=== PATIENT | male | born 1960 | race Caucasian/White ===

== ENCOUNTER 2020-03-11 13:47 | Inpatient (IN) | payer MEDICARE ==
[2020-03-11] MEDS ORDERED: MORPHINE SULFATE 10 MG/ML INJ IV ONE ×2 (14:28→18:00)
--- NOTE | 2020-03-11 14:32 | ER Document Report ---
ED Medical Screen (RME) - General Chief Complaint: Shortness Of Breath Stated Complaint: TESTICULAR PAIN/SWELLING,SHORT OF BREATH Time Seen by Provider: 03/11/20 14:19 - HPI Notes: 03/11/20 14:31 59-year-old male presents to ED for evaluation of increased scrotal pain and swelling as well as shortness of breath and abdominal distention. Reports he arrived from [place] does have history of congestive heart failure. Notes that he has required more oxygen. Denies chest pain. Patient states that he feels like his scrotum is more swollen and he is retaining fluid. Patient does take furosemide on a daily basis and states he has not missed any doses. The need for paracentesis in the past. - Related Data Allergies/Adverse Reactions: No Known Allergies Allergy (Unverified 03/11/20 14:15) Home Medications: furosemide, lisinopril, carvedilol, insulin, gimpro, warfarin Past Medical History - Social History Chew tobacco use (# tins/day): No Frequency of alcohol use: None Drug Abuse: None - Past Medical History Cardiac Medical History: Reports: Hx Congestive Heart Failure, Hx Heart Attack - 2015, Hx Hypercholesterolemia, Hx Hypertension Pulmonary Medical History: Reports: Hx COPD Endocrine Medical History: Reports: Hx Diabetes Mellitus Type 2 Renal/ Medical History: Denies: Hx Kidney Stones Past Surgical History: Reports: Hx Cardiac Catheterization - 3 stents, Hx Cardiac Surgery - #V cabg, pacer/defib, Hx Vascular Surgery - rt femoral aneurysm Physical Exam - Vital signs Vitals: Temp Pulse Resp BP Pulse Ox 97.4 F 87 20 185/110 H 91 L 03/11/20 13:57 03/11/20 13:57 03/11/20 13:57 03/11/20 13:57 03/11/20 13:57 Course - Re-evaluation Re-evalutation: 03/11/20 14:32 General: No acute distress. Alert and oriented x3. Sitting comfortably in a stretcher. Skin: Intact without any jaundice, pallor, or erythema. Warm and dry. Heart: Regular rate and rhythm. S1,S2. No murmurs, rubs, or gallops. Lungs: Crackles to bibasilar region without wheezes, rhonchi. Equal chest expansion. No retractions. Abdomen: Soft, distended. + fluid wave. Positive bowel sounds in all 4 quadrants. No hepatosplenomegaly. No masses. No CVA tenderness bilaterally. Neuro: GCS 15. Moving all extremities without discomfort. Psych: Mood and affect appropriate. - Vital Signs Vital signs: Temp Pulse Resp BP Pulse Ox 97.4 F 87 20 185/110 H 91 L 03/11/20 13:57 03/11/20 13:57 03/11/20 13:57 03/11/20 13:57 03/11/20 13:57
--- NOTE | 2020-03-11 15:29 | RADIOLOGY REPORT (SQ) ---
EXAM DESCRIPTION: U/S SCROTUM W/DOPPLER IMAGES COMPLETED DATE/TIME: 03/11/2020 3:16 pm REASON FOR STUDY: testicular pain COMPARISON: None. TECHNIQUE: Static and realtime jefferson scale imaging of the scrotum and testes. Selected color Doppler and spectral images recorded to document blood flow. LIMITATIONS: None. FINDINGS: RIGHT: TESTICLE: The right testicle measures 4.0 x 3.1 x 2.7 cm, normal size. Normal echogenicity. Normal blood flow. No mass. EPIDIDYMIS: The head of the epididymis measures 1.4 x 1.7 x 0.9 cm. A 0.4 x 0.6 x 0.4 cm cyst in th e head. HYDROCELE OR VARICOCELE: No. HERNIA OR EXTRA-TESTICULAR MASS: No. OTHER: Scrotal wall thickening measures 13 mm. LEFT: TESTICLE: The left testicle measures 3.6 x 2.8 x 2.9 cm, normal size. Normal echotexture. Normal bl ood flow. No mass. EPIDIDYMIS: The head of the epididymis measures 1.4 x 1.3 x 1.0 cm. A 0.5 x 0.5 x 0.6 cm cyst. HYDROCELE OR VARICOCELE: No. HERNIA OR EXTRA-TESTICULAR MASS: No. OTHER: Scrotal wall thickening measures 20 mm. Scrotal wade versus epididymis measures 0.7 x 0.8 x 0.6 cm. IMPRESSION: 1, NO EVIDENCE OF TESTICULAR MASS OR TORSION. 2. Scrotal wall thickening bilaterally, greater on the left. 3. Small subcentimeter cysts in the head of the epididymis bilaterally. TECHNICAL DOCUMENTATION: JOB ID: [id number] [employer]- All Rights Reserved Reading location - IP/workstation name: [email or web address]
--- NOTE | 2020-03-11 15:58 | RADIOLOGY REPORT (SQ) ---
EXAM DESCRIPTION: CHEST SINGLE VIEW IMAGES COMPLETED DATE/TIME: 03/11/2020 3:37 pm REASON FOR STUDY: chest pain COMPARISON: None. EXAM PARAMETERS: NUMBER OF VIEWS: One view. TECHNIQUE: Single frontal radiographic view of the chest acquired. RADIATION DOSE: NA LIMITATIONS: None. FINDINGS: There is left side defibrillator. The heart is enlarged. Prior CABG. Small left pleural effusion and segmental airspace disease left lower lobe. IMPRESSION: Left lower lobe pneumonia. TECHNICAL DOCUMENTATION: JOB ID: [id number] [employer]- All Rights Reserved Reading location - IP/workstation name: [email or web address]
[2020-03-11 16:07] LABS: ABSOLUTE BASOPHILS # (AUTO) 0.1 10^3/uL (0.0-0.2); ABSOLUTE EOSINOPHILS # (AUTO) 0.2 10^3/uL (0.0-0.6); ABSOLUTE LYMPHOCYTES (AUTO) 0.9 10^3/uL (0.5-4.7); ABSOLUTE MONOCYTES (AUTO) 0.8 10^3/uL (0.1-1.4); ABSOLUTE NEUT (AUTO) 6.2 10^3/uL (1.7-8.2); BASOPHILS % (AUTO) 1.4 % (0-2); HEMOGLOBIN 17.9 g/dL (13.5-17.0); MEAN CORPUSCULAR HEMOGLOBIN 31.3 pg (27.0-33.4); MEAN CORPUSCULAR HGB CONC 32.3 g/dL (32.0-36.0); MEAN CORPUSCULAR VOLUME 97 fl (80-97); MONOCYTES % (AUTO) 9.2 % (3-13); PLATELET COUNT 332 10^3/uL (150-450); RED BLOOD COUNT 5.73 10^6/uL (4.35-5.55); RED CELL DISTRIBUTION WIDTH 17.4 % (11.5-14.0); SEGMENTED NEUTROPHILS % (AUTO) 76.4 % (42-78); TOTAL CELLS COUNTED % (AUTO) 100 %; WHITE BLOOD COUNT 8.2 10^3/uL (4.0-10.5)
[2020-03-11 16:10] LABS: HEMATOCRIT 55.5 % (37.9-51.0)
[2020-03-11 16:26] LABS: ALBUMIN 3.4 g/dL (3.5-5.0); ALKALINE PHOSPHATASE 103 U/L (38-126); ASPARTATE AMINO TRANSFERASE 26 U/L (17-59); BILIRUBIN,DIRECT 0.3 mg/dL (0.0-0.4); BILIRUBIN,TOTAL 1.6 mg/dL (0.2-1.3); BLOOD UREA NITROGEN 35 mg/dL (7-20); CALCIUM 9.2 mg/dL (8.4-10.2); CHLORIDE 94 mmol/L (98-107); CREATINE KINASE 132 U/L (55-170); GLUCOSE 214 mg/dL (75-110); POTASSIUM 4.1 mmol/L (3.6-5.0); TOTAL PROTEIN 6.6 g/dL (6.3-8.2)
[2020-03-11 16:34] LABS: ANION GAP 3 (5-19)
[2020-03-11 16:35] LABS: CARBON DIOXIDE 41 mmol/L (22-30)
[2020-03-11 16:38] LABS: CREATINE KINASE MB 5.52 ng/mL (<4.55)
[2020-03-11 16:51] LABS: TROPONIN I 0.072 ng/mL
[2020-03-11] MEDS ORDERED: ENOXAPARIN SODIUM INJ 100 MG/1 ML DISP.SYRIN SUBCUT ONE (18:49)
[2020-03-11] MEDS ORDERED: FUROSEMIDE INJ/PF 40 MG/4 ML SDV IV ONE (18:50)
--- NOTE | 2020-03-11 19:02 | RADIOLOGY REPORT (SQ) ---
EXAM DESCRIPTION: CTA CHEST IMAGES COMPLETED DATE/TIME: 03/11/2020 3:33 pm REASON FOR STUDY: eval for PE COMPARISON: Single-view chest same date. TECHNIQUE: CT scan of the chest performed using helical scanning technique with dynamic intravenous contrast injection. Images reviewed with lung, soft tissue and bone windows. Reconstructed coronal and sagittal MPR images reviewed. Additional 3 dimensional post-processing performed to develop Maximal Intensity Projection images (FL P). All images stored on PACS. All CT scanners at this facility use dose modulation, iterative reconstruction, and/or weight based d osing when appropriate to reduce radiation dose to as low as reasonably achievable (ALARA). [facility]: Dose Right [facility]: CareDose [facility]: Dose Right [facility]: Teradose 4D [facility]: [email or web address] CONTRAST TYPE AND DOSE: contrast/concentration: Isovue 300.00 mmol/ml; Total Contrast Delivered: 75. 0 ml; Total Saline Delivered: 48.0 ml Contrast bolus optimized for the pulmonary arteries. Not diagnostic for the aorta. RENAL FUNCTION: Creatinine 1.54 RADIATION DOSE: CT Rad equipment meets quality standard of care and radiation dose reduction techniq ues were employed. CTDIvol: 23.2 - 26.4 mGy. DLP: 862 mGy-cm. . LIMITATIONS: Motion artifact. FINDINGS: LUNGS AND PLEURA: Moderate left and small right pleural effusions. Diffuse breast from mo tion artifact. There are some ground-glass opacities and septal thickening in the upper lobes, more pronounced on the right. Consolidative and somewhat wedge-shaped opacities in the posterior left low er lobe probably representing pulmonary infarcts. No pneumothorax identified. 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 HEART: No pericardial effusion. Coronary artery calcifications. PULMONARY ARTERIES: There appear to be some filling defects involving segmental and subsegmental pulm onary artery supplying the left lower lobe. These appear to lead to the peripheral wedge-shaped opac ities described above. No large central pulmonary embolism. Main pulmonary artery is enlarged. The re is reflux of contrast into the IVC and hepatic veins. HILAR AND MEDIASTINAL STRUCTURES: Some mildly enlarged lymph nodes are likely reactive. HARDWARE: Left-sided pacemaker and pacing leads with associated artifact partially obscuring detail o f adjacent structures. UPPER ABDOMEN: As above. Mild ascites. Partially visualized aortic stent. THYROID AND OTHER SOFT TISSUES: No masses. No adenopathy. BONES: No acute or significant finding. 3D MIPS: Confirm above findings. OTHER: No other significant finding. IMPRESSION: 1. Findings suspicious for acute pulmonary emboli within segmental and subsegmental pul monary arteries supplying the left lower lobe. Some peripheral wedge-shaped opacities in this region likely represent pulmonary infarcts. There may be component of rounded atelectasis. 2. Findings suggestive of pulmonary edema with ground-glass attenuation and septal thickening is wel l as bilateral pleural effusions. 3. Main pulmonary is enlarged. Reflex of contrast into the IVC and hepatic veins. Findings could b e due to underlying chronic pulmonary hypertension, though this could be exacerbated due to the acute PE. COMMENT: This report was called to JANEEN ART DO at15:46 [place] time on 03/11/2020. Quality ID # [id number]: Final reports with documentation of one or more dose reduction techniques (e.g., Au tomated exposure control, adjustment of the mA and/or kV according to patient size, use of iterative reconstruction technique) TECHNICAL DOCUMENTATION: JOB ID: [id number] 2010 [employer]- All Rights Reserved Reading location - IP/workstation name: [email or web address]
--- NOTE | 2020-03-11 19:24 | ER Document Report ---
ED General - General Chief Complaint: Shortness Of Breath Stated Complaint: TESTICULAR PAIN/SWELLING,SHORT OF BREATH Time Seen by Provider: 03/11/20 14:19 - HPI Notes: Patient is a 59-year-old male with a history of congestive heart failure, coronary artery disease, who presents to the emergency department for evaluation of increased difficulty breathing. He states has been going on for the last 2 weeks. The patient is actually from the [facility]. He drove up here to see his son. He has been here for 2 weeks, states has been short of breath for 2 weeks. He is a very difficult historian. He denies any pain. He states he has been taking his medications. He states he has only recently started having seeping from the leg wounds that he has. He states some of them are new. He states he is supposed to weigh himself daily but he admits that he does not. He feels like he may have gained weight. He also has scrotal edema which is worsened. He denies any fevers or chills. No coughing. No vomiting. He is still urinating. - Related Data Allergies/Adverse Reactions: No Known Allergies Allergy (Unverified 03/11/20 14:15) Home Medications: Coreg 25 mg twice daily, Coumadin 5 mg daily, Neurontin 100 mg 3 times daily, gemfibrozil 600 mg twice daily, Bumex 1 mg daily, lisinopril 40 mg daily, hydralazine 25 mg 3 times daily, isosorbide mononitrate 30 mg daily, insulin 70/30, 45 units in the morning, 20 5 in the evening, ProAir as needed Past Medical History - General Information source: Patient - Social History Smoking Status: Current Every Day Smoker Chew tobacco use (# tins/day): No Frequency of alcohol use: None Drug Abuse: None Family History: Reviewed & Not Pertinent Patient has homicidal ideation: No - Past Medical History Cardiac Medical History: Reports: Hx Congestive Heart Failure, Hx Heart Attack - 2015, Hx Hypercholesterolemia, Hx Hypertension Denies: Hx DVT, Hx Pulmonary Embolism Pulmonary Medical History: Reports: Hx COPD Endocrine Medical History: Reports: Hx Diabetes Mellitus Type 2 Renal/ Medical History: Denies: Hx Kidney Stones Past Surgical History: Reports: Hx Cardiac Catheterization - 3 stents, Hx Coronary Artery Bypass Graft, Hx Pacemaker - And defibrillator, Hx Vascular Surgery - rt femoral aneurysm Review of Systems - Review of Systems Constitutional: Weight gain EENT: No symptoms reported Cardiovascular: See HPI Respiratory: See HPI Gastrointestinal: No symptoms reported Male Genitourinary: See HPI Skin: See HPI Neurological/Psychological: No symptoms reported Physical Exam - Vital signs Vitals: Temp Pulse Resp BP Pulse Ox 97.4 F 87 20 185/110 H 91 L 03/11/20 13:57 03/11/20 13:57 03/11/20 13:57 03/11/20 13:57 03/11/20 13:57 - Notes Notes: This is a 59-year-old male who appears much older than his stated age, in no acute distress. Vital signs reviewed, please refer to chart. Head is normocephalic, atraumatic. Pupils equal round, reactive to light. Dentition is poor. Oral mucosa is moist. Neck is supple without meningismus. Heart is regular rate and rhythm. Lungs reveal bibasilar rales, occasional anterior expiratory wheezes. Abdomen is firm with positive fluid wave, nontender, normoactive bowel sounds throughout. He has pitting edema to the skin of the abdomen all the way up to the thorax. Extremities without cyanosis, clubbing. 3+ pitting edema noted throughout the lower extremities. He has open/weeping wounds to the left lower extremity, both anteriorly and posteriorly. They appear chronic. Posterior calves are nontender. Peripheral pulses are equal. Skin is warm and dry. Patient is awake, alert, neurological exam is nonfocal. Course - Re-evaluation Re-evalutation: 03/11/20 20:05 Patient presents to the emergency department for evaluation of shortness of breath. He is an extremely difficult historian. He does have a history of CHF, and was obviously having an acute exacerbation of this on initial evaluation. Initially told me he was not on a diuretic, then he told me he was on Lasix, then he said perhaps he was injecting Bumex intermittently. He had extreme difficulty telling me any of his medications for some time. He told me pharmacies that he used that in fact he had not used for several years. We were finally eventually able to reach his son, who took pictures of his medication bottles, and medication list was reconciled. His laboratory investigations are consistent with severe congestive heart failure. His initial chest x-ray showed left pleural effusion of what looked like airspace disease to radiology. The patient does not have a significant cough, he has no leukocytosis, no fever. I did not suspect that this was secondary to pneumonia. Given his long journey from [place], I was concerned about the possibility of a pulmonary embolus. I did not have any concept of the fact that the patient was reportedly on Coumadin at the time of the initial evaluation. He states that he was on Coumadin because of his coronary artery disease, I will write denies any history of DVT or pulmonary embolus. CT angiogram shows findings consistent with a left lower lobe pulmonary embolus and resultant pulmonary infarction. Lovenox is ordered. Patient did not have a diuretic dose when I ordered his IV Lasix. He was administered 40 of IV Lasix, awaiting to see response. Given that he is on Bu julio, may increase diuretic dose. The patient had denied any history of renal insufficiency, but again he is an extremely poor historian at this point, ABG was tried twice by nursing, the patient is refusing any further attempts. Will contact medicine for admission. 03/11/20 20:[address] Selby, he will come down and evaluate the patient. 03/11/20 21:02 Still awaiting report on whether or not Dr. Selby will accept this patient. In short, I do believe he needs admitted for his pulmonary embolus. It is clearly acute. Whether or not he is compliant with his medications, including his Coumadin, he still needs bridging at the very least. My suspicion is that he does occasionally take his Coumadin and he had a pulmonary embolus despite this. His blood pressure is high, but I have ordered for him to get his regular medications, including his hydralazine and his Coreg. I do not believe he requires a nitroglycerin drip at this time, as he is oxygenating well on his 2 L, I am awaiting response to the diuresis. Still awaiting word on admission. 03/11/20 21:09 Patient accepted to the IM service. - Vital Signs Vital signs: Temp Pulse Resp BP Pulse Ox 97.5 F 67 17 137/74 H 96 03/13/20 15:09 03/13/20 19:00 03/13/20 15:09 03/13/20 15:09 03/13/20 15:09 - Laboratory Results Result Diagrams: 03/13/20 05:41 03/13/20 05:41 Laboratory Results Interpreted: 03/11/20 03/11/20 03/11/20 15:50 15:50 15:50 RBC 5.73 H Hgb 17.9 H Hct 55.5 H RDW 17.4 H Lymph % (Auto) 11.0 L PT Carbonic Acid ABG pCO2 ABG pO2 ABG HCO3 ABG Total CO2 Chloride 94 L Carbon Dioxide 41 H* Anion Gap 3 L BUN 35 H Creatinine 1.54 H Est GFR ( Amer) 57 L Est GFR (MDRD) Non-Af 47 L Glucose 214 H Total Bilirubin 1.6 H CK-MB (CK-2) 5.52 H NT-Pro-B Natriuret Pep 65701 H Albumin 3.4 L 03/11/20 03/11/20 15:50 20:15 RBC Hgb Hct RDW Lymph % (Auto) PT 16.5 H Carbonic Acid 1.47 H ABG pCO2 49.0 H ABG pO2 76.5 L ABG HCO3 32.8 H ABG Total CO2 34.3 H Chloride Carbon Dioxide Anion Gap BUN Creatinine Est GFR ( Amer) Est GFR (MDRD) Non-Af Glucose Total Bilirubin CK-MB (CK-2) NT-Pro-B Natriuret Pep Albumin Critical Laboratory Results Reviewed: Yes Attending or Supervising Physician who Reviewed Labs: JANEEN ART - Radiology Results Radiology Results Interpreted: 03/11/20 20:08 Chest X-Ray 03/11/20 14:30 IMPRESSION: Left lower lobe pneumonia. Scrotum Ultrasound 03/11/20 14:31 IMPRESSION: 1, NO EVIDENCE OF TESTICULAR MASS OR TORSION. 2. Scrotal wall thickening bilaterally, greater on the left. 3. Small subcentimeter cysts in the head of the epididymis bilaterally. Chest/Abdomen CTA 03/11/20 18:05 IMPRESSION: 1. Findings suspicious for acute pulmonary emboli within segmental and subsegmental pulmonary arteries supplying the left lower lobe. Some peripheral wedge-shaped opacities in this region likely represent pulmonary infarcts. There may be component of rounded atelectasis. 2. Findings suggestive of pulmonary edema with ground-glass attenuation and septal thickening is well as bilateral pleural effusions. 3. Main pulmonary is enlarged. Reflex of contrast into the IVC and hepatic veins. Findings could be due to underlying chronic pulmonary hypertension, though this could be exacerbated due to the acute PE. Critical Radiology Results Reviewed: Yes Attending or Supervising Physician who Reviewed Radiology: JANEEN ART Critical Care Note - Critical Care Note Total time excluding time spent on procedures (mins): 30 Discharge - Discharge Clinical Impression: Pulmonary embolism and infarction Congestive heart failure Qualifiers: Heart failure chronicity: acute on chronic Condition: Stable Disposition: ADMITTED INPATIENT Admitting Provider: [facility] Unit Admitted: [facility]
[2020-03-11 19:36] LABS: INTERNATIONAL RATION (INR) 1.31; PROTHROMBIN TIME 16.5 SEC (11.4-15.4)
[2020-03-11] MEDS ORDERED: HYDRALAZINE HCL 25 MG TABLET PO ONE (20:11)
[2020-03-11] MEDS ORDERED: CARVEDILOL 12.5 MG TABLET PO ONE (20:11)
[2020-03-11 21:05] LABS: ARTERIAL BLOOD H2CO3 1.47 mmol/L (1.05-1.35); ARTERIAL BLOOD HCO3 32.8 mmol/L (20-24); ARTERIAL BLOOD O2 SATURATION 95.6 % (94-98); ARTERIAL BLOOD PH 7.44 (7.35-7.45); ARTERIAL BLOOD PO2 76.5 mmHg (80-100); ARTERIAL BLOOD TOTAL CO2 34.3 mmol/L (23-27)
[2020-03-11 21:06] LABS: ARTERIAL BLOOD FIO2 3L
[2020-03-11] MEDS ORDERED: DEXTROSE 50%-WATER 25 GM/50 ML DISP.SYRIN IV PRN ×2 (21:15)
[2020-03-11] MEDS ORDERED: GLUCAGON,HUMAN RECOMB 1 MG INJ IM PRN (21:15)
[2020-03-11] MEDS ORDERED: DEXTROSE 40% GEL 15 GM TUBE PO PRN ×2 (21:15)
--- NOTE | 2020-03-11 21:21 | PDOC H&P ---
History of Present Illness Patient complains of: Shortness of breath, leg swelling History of Present Illness: HARRIET PINEDA is a 59 year old male with a history of heart failure, COPD on 2 L intranasal oxygen, CAD, type 2 diabetes and hypertension presents to the ED with 2 weeks duration of progressively worsening shortness of breath and generalized body swelling which started from the lower extremities and gradually increased to involve his scrotum and abdomen. He also endorses associated orthopnea. Patient patient is a difficult and unreliable historian and additional history was obtained from ED signout. Patient lives in [place] and moved here 2 weeks back to see his son. He states that he is compliant with all his medications. A picture of his medication list sent by his son to the ED physician shows that he is on medications for heart failure with reduced ejection fraction and also on anticoagulation with warfarin but patient unable to give a clear answer why he is on anticoagulation. He states that he was started initially on Eliquis about 8 to 10 months back and was later switched to warfarin for unclear reasons. He reports that he has no cough, chest pain, fever, chills, palpitation, dizziness, change in his vision, weakness of extremities, aphasia or difficulty of swallowing. He denies any change in his bowel or urinary habits. Past Medical History Cardiac Medical History: Reports: Congestive Heart Failure, Myocardial Infarction - 2015, Hyperlipidema, Hypertension Denies: DVT, Pulmonary Embolism Pulmonary Medical History: Reports: Chronic Obstructive Pulmonary Disease (COPD) Endocrine Medical History: Reports: Diabetes Mellitus Type 2 Past Surgical History Past Surgical History: Reports: Cardiac Catheterization - 3 stents, Coronary Artery Bypass Graft, Pacemaker - And defibrillator, Vascular Surgery - rt femoral aneurysm Social History Information Source: Patient Lives with: Family Smoking Status: Current Every Day Smoker Electronic Cigarette use?: No Hx Recreational Drug Use: No Drugs: None - Advance Directive Resuscitation Status: Full Code Family History Parental Family History Reviewed: Yes Children Family History Reviewed: Yes Sibling(s) Family History Reviewed.: Yes Medication/Allergy Allergies/Adverse Reactions: No Known Allergies Allergy (Unverified 03/11/20 14:15) Review of Systems Constitutional: ABSENT: chills, fever(s), headache(s), weight gain, weight loss Eyes: ABSENT: visual disturbances Ears: ABSENT: hearing changes Nose, Mouth, and Throat: ABSENT: headache(s), mouth pain, sore throat Cardiovascular: PRESENT: as per HPI Respiratory: PRESENT: as per HPI Gastrointestinal: ABSENT: abdominal pain, constipation, diarrhea, hematemesis, hematochezia, nausea, vomiting Genitourinary: ABSENT: dysuria, hematuria Musculoskeletal: ABSENT: joint swelling Neurological: ABSENT: abnormal gait, abnormal speech, confusion, dizziness, focal weakness, syncope Psychiatric: ABSENT: anxiety, depression, homidical ideation, suicidal ideation Endocrine: ABSENT: cold intolerance, heat intolerance, polydipsia, polyuria Hematologic/Lymphatic: ABSENT: easy bleeding, easy bruising Physical Exam Vital Signs: Temp Pulse Resp BP Pulse Ox 98.2 F 87 32 H 185/119 H 93 03/11/20 17:17 03/11/20 13:57 03/11/20 17:31 03/11/20 17:31 03/11/20 17:32 Intake & Output 03/10/20 03/11/20 03/12/20 06:59 06:59 06:59 Weight 100 kg Additional comments: GENERAL APPEARANCE: Alert and oriented x3, in no acute distress, on 3 L intranasal oxygen HEENT: Normocephalic and atraumatic. No scleral icterus. Moist oral mucosa NECK: Supple. No lymphadenopathy or tenderness. Has elevated JVD CHEST: Symmetric. Nontender to palpation. There is a palpable ICD on the left precordium LUNGS: There is dullness and decreased air entry on the left lower lung field. Has crackles bilaterally. No wheezing appreciated HEART: Regular rate and rhythm with normal S1 and S2. No murmurs, gallops, or rubs. ABDOMEN: Distended, active bowel sounds, no direct or rebound tenderness. No organomegaly detected. No CVA tenderness EXTREMITIES: +2 pitting edema up to his knees, has signs of stasis dermatitis with serosanguineous fluid oozing from ulcerated excoriations on the left mid hinson area MUSCULOSKELETAL: No deformity, atrophy or swelling noted PSYCHIATRIC: Recent and remote memory is intact. Appropriate mood and affect. SKIN: Warm, dry, and well perfused. No lesions or rashes are noted. NEUROLOGIC: No focal sensory or motor deficits are noted. Results Laboratory Results: 03/11/20 15:50 03/11/20 15:50 03/11/20 03/11/20 03/11/20 15:50 15:50 20:15 WBC 8.2 RBC 5.73 H Hgb 17.9 H Hct 55.5 H MCV 97 MCH 31.3 MCHC 32.3 RDW 17.4 H Plt Count 332 Seg Neutrophils % 76.4 Carbonic Acid 1.47 H HCO3/H2CO3 Ratio 22:1 ABG pH 7.44 ABG pCO2 49.0 H ABG pO2 76.5 L ABG HCO3 32.8 H ABG O2 Saturation 95.6 ABG Base Excess 7.0 FiO2 3L Sodium 138.0 Potassium 4.1 Chloride 94 L Carbon Dioxide 41 H* Anion Gap 3 L BUN 35 H Creatinine 1.54 H Est GFR ( Amer) 57 L Glucose 214 H Calcium 9.2 Total Bilirubin 1.6 H AST 26 Alkaline Phosphatase 103 Total Protein 6.6 Albumin 3.4 L Lipase 68.7 03/11/20 03/11/20 03/11/20 15:50 15:50 17:20 Creatine Kinase 132 CK-MB (CK-2) 5.52 H Troponin I 0.072 0.074 NT-Pro-B Natriuret Pep 93923 H Impressions: Chest X-Ray 03/11/20 14:30 IMPRESSION: Left lower lobe pneumonia. Scrotum Ultrasound 03/11/20 14:31 IMPRESSION: 1, NO EVIDENCE OF TESTICULAR MASS OR TORSION. 2. Scrotal wall thickening bilaterally, greater on the left. 3. Small subcentimeter cysts in the head of the epididymis bilaterally. Chest/Abdomen CTA 03/11/20 18:05 IMPRESSION: 1. Findings suspicious for acute pulmonary emboli within segmental and subsegmental pulmonary arteries supplying the left lower lobe. Some peripheral wedge-shaped opacities in this region likely represent pulmonary infarcts. There may be component of rounded atelectasis. 2. Findings suggestive of pulmonary edema with ground-glass attenuation and septal thickening is well as bilateral pleural effusions. 3. Main pulmonary is enlarged. Reflex of contrast into the IVC and hepatic veins. Findings could be due to underlying chronic pulmonary hypertension, though this could be exacerbated due to the acute PE. Assessment and Plan - Diagnosis (1) Pulmonary embolism and infarction Is this a current diagnosis for this admission?: Yes Plan: Presents with worsening shortness of breath Patient was on warfarin but difficult to confirm compliance INR was subtherapeutic on this presentation CTA chest: Showed acute PE in segmental and subsegmental arteries supplying the left lower lobe with possible infarction Currently is hemodynamically stable Started on Lovenox Closely monitor vital signs and respiratory parameters (2) Congestive heart failure Qualifiers: Heart failure chronicity: acute on chronic Is this a current diagnosis for this admission?: Yes Plan: Presents with shortness of breath, orthopnea, bilateral leg swelling Patient's home medication includes hydralazine, isosorbide mononitrate, carvedilol and has defibrillator suggesting possible systolic heart failure CT of the chest showed signs of pulmonary edema and Jamie hypertension with the left lower lobe PE BNP was elevated at 37,900. She also has bicarb of 41 BMP ABG done at the ED showed pH/PCO2/PO2 of 7.44/49/96 Scrotal ultrasound showed no evidence of torsion Strict I&O's, daily weight, fluid restriction Initial dose of 80 mg IV Lasix was given at the ED Continue Lasix 40 mg IV twice daily Continue telemetry monitoring (3) Acute kidney injury Is this a current diagnosis for this admission?: Yes Plan: Likely prerenal cardiorenal Continue diuresis with IV Lasix Continue monitoring renal function tests Renally dose medications and avoid nephrotoxic's (4) Elevated troponin Is this a current diagnosis for this admission?: Yes Plan: Patient denies any chest pain Troponin was elevated at 0.074 Likely type II non-STEMI due to demand mismatch EKG showed no significant ST-T wave changes Continue aspirin and statin Trend cardiac enzymes every 6 hourly x2 On telemetry monitoring (5) Poorly-controlled hypertension Is this a current diagnosis for this admission?: Yes Plan: Possibly due to noncompliance with medication Restarted him back on his home medications Closely monitor vital signs (6) COPD (chronic obstructive pulmonary disease) Is this a current diagnosis for this admission?: Yes Plan: Currently not in acute exacerbation Continue DuoNeb as needed (7) Tobacco dependence Is this a current diagnosis for this admission?: Yes Plan: Counseled him about tobacco cessation and encouraged him to cut down on quit Offered nicotine patch while inpatient but patient declined (8) Obesity (BMI 30-39.9) Is this a current diagnosis for this admission?: Yes (9) Metabolic alkalosis Is this a current diagnosis for this admission?: Yes Plan: Serum bicarb level was 41 on presentation ABG showed a pH of 7.44 with PCO2 of 49 Likely chronic compensation for respiratory acidosis Less likely to be contraction alkalosis due to patient being volume overloaded Monitor BMP - Time Time Spent with patient: 35 or more minutes Total Critical Time (Minutes): 50 Smoking Cessation Education: 3 to 10 minutes Medications reviewed and adjusted accordingly: Yes Anticipated Discharge Disposition: Home, Self Care Anticipated Discharge Timeframe: within 72 hours - Inpatient Certification Based on my medical assessment, after consideration of the patient's comorbidi ties, presenting symptoms, or acuity I expect that the services needed warrant INPATIENT care.: Yes I certify that my determination is in accordance with my understanding of Vicky pete's requirements for reasonable and necessary INPATIENT services [42 CFR 412.3e].: Yes Post Hospital Care: D/C or Transfer Summary
--- NOTE | 2020-03-11 21:31 | EKG REPORT ---
SEVERITY:- ABNORMAL ECG - SINUS RHYTHM PROBABLE LEFT ATRIAL ABNORMALITY NONSPECIFIC INTRAVENTRICULAR CONDUCTION DELAY : Confirmed by: Kia Gonzalez MD 11-Mar-2020 21:29:50
[2020-03-11] MEDS: ENOXAPARIN SODIUM INJ 100 MG/1 ML DISP.SYRIN SUBCUT SCH (21:32)
[2020-03-11] MEDS: FUROSEMIDE INJ/PF 40 MG/4 ML SDV IV SCH (21:32)
[2020-03-11] MEDS: INSULIN REG, HUMAN 100 UNIT/ML 3 ML VIAL (PYX) SUBCUT SCH (22:31)
[2020-03-11] MEDS: HYDRALAZINE HCL 25 MG TABLET PO SCH (22:31)
[2020-03-11] MEDS: FAMOTIDINE 20 MG TABLET PO SCH (22:31)
[2020-03-12] MEDS: HYDRALAZINE HCL 25 MG TABLET PO SCH ×3 (05:19→22:22)
[2020-03-12 06:19] LABS: MEAN CORPUSCULAR HEMOGLOBIN 30.7 pg (27.0-33.4); MEAN CORPUSCULAR VOLUME 96 fl (80-97); PLATELET COUNT 243 10^3/uL (150-450); RED CELL DISTRIBUTION WIDTH 17.5 % (11.5-14.0); WHITE BLOOD COUNT 6.7 10^3/uL (4.0-10.5)
[2020-03-12 06:23] LABS: HEMOGLOBIN 15.7 g/dL (13.5-17.0)
[2020-03-12 06:31] LABS: BLOOD UREA NITROGEN 34 mg/dL (7-20); CALCIUM 8.9 mg/dL (8.4-10.2); CARBON DIOXIDE 39 mmol/L (22-30); CHLORIDE 95 mmol/L (98-107); GLUCOSE 158 mg/dL (75-110); POTASSIUM 4.1 mmol/L (3.6-5.0)
[2020-03-12 06:46] LABS: ANION GAP 3 (5-19)
[2020-03-12 07:30] LABS: APPEARANCE,URINE CLEAR; BILIRUBIN,URINE NEGATIVE (NEGATIVE); COLOR,URINE YELLOW; GLUCOSE, URINE NEGATIVE (NEGATIVE); KETONES,URINE NEGATIVE (NEGATIVE); LEUKOCYTE ESTERASE,URINE NEGATIVE (NEGATIVE); NITRITE,URINE NEGATIVE (NEGATIVE); PROTEIN,URINE >=500 mg/dL (NEGATIVE); URINE SPECIFIC GRAVITY 1.027; UROBILINOGEN,URINE NEGATIVE mg/dL (<2.0)
--- NOTE | 2020-03-12 09:00 | EKG REPORT ---
SEVERITY:- ABNORMAL ECG - SINUS RHYTHM PROBABLE LEFT ATRIAL ABNORMALITY NONSPECIFIC T ABNORMALITIES, DIFFUSE LEADS BORDERLINE PROLONGED QT INTERVAL : Confirmed by: Kia Gonzalez MD 12-Mar-2020 09:00:21
[2020-03-12] MEDS: INSULIN REG, HUMAN 100 UNIT/ML 3 ML VIAL (PYX) SUBCUT SCH ×4 (09:15→22:17)
[2020-03-12] MEDS: HUM INSULIN NPH/REG INSULIN HM 100 UNIT/1 ML 3 ML SUBCUT SCH ×2 (09:21→17:42)
[2020-03-12] MEDS: FAMOTIDINE 20 MG TABLET PO SCH ×2 (09:22→22:23)
[2020-03-12] MEDS: ISOSORBIDE MONONITRATE 30 MG TAB.ER.24H PO SCH (09:24)
[2020-03-12] MEDS: CARVEDILOL 12.5 MG TABLET PO SCH ×2 (09:24→22:23)
[2020-03-12] MEDS: ASPIRIN 81 MG TABLET, CHEWABLE PO SCH (09:24)
[2020-03-12] MEDS: ENOXAPARIN SODIUM INJ 100 MG/1 ML DISP.SYRIN SUBCUT SCH ×2 (09:25→22:22)
[2020-03-12] MEDS: FUROSEMIDE INJ/PF 40 MG/4 ML SDV IV SCH ×2 (09:25→22:22)
[2020-03-12] MEDS ORDERED: ISOSORBIDE MONONITRATE 60 MG TAB.ER.24H PO SCH (10:00)
[2020-03-12] MEDS: IPRATROPIUM/ALBUTEROL 0.5-2.5 MG/3 ML AMPUL NEB PRN ×2 (12:11→17:27)
--- NOTE | 2020-03-12 14:11 | XCELERA REPORT ---
[address] [address] Transthoracic Echocardiogram Report Name: HARRIET PINEDA Age: 59 yrs Gender: Male : 1960 Patient Status: [facility] Date: 03/12/2020 10:04 AM Height: 66 in Weight: 216 lb BSA: 2.1 m2 Procedure: A two-dimensional transthoracic echocardiogram with color flow and Doppler was performed. Study Quality: Fair. Reason For Study: heart failure, acite pe History: heart failure, acite pe. Ordering Physician: WILMAR STAPLETON Performed By: Hill Whitney Interpretation Summary The left ventricle is moderately to severly dilated. There is normal left ventricular wall thickness. LV EF is Less than 10% Left ventricular systolic function is severely reduced. Doppler measurements suggest impaired left ventricular relaxation, which is associated with grade I/IV or mild diastolic dysfunction There is severe global hypokinesis of the left ventricle. There is no thrombus. probably no ASD,VSD or PFO. The right ventricle is mildly dilated. The right ventricle is not well visualized secondary to technical limitations The right atrium is normal. There is no evidence of mitral valve prolapse. There is no vegetation seen on the mitral valve. There is no mitral valve stenosis. There is a mild to moderate amount of mitral regurgitation There is no aortic valvular vegetation. There is no aortic valve stenosis No aortic regurgitation is present. There is no tricuspid stenosis. There is a moderate amount of tricuspid regurgitation There is servere pulmonary hypertension by echo RVSP is 74 to 79 mm of Hg , mean of 15 to 30/ There is no pulmonic valvular stenosis. There is a mild amount of pulmonic regurgitation The aortic root is normal size. The inferior vena cava appeared dilated and decreased < 50% with respiration (RAP 15-20 mmHg) There is no pericardial effusion. MMode/2D Measurements & Calculations RVDd: 3.2 cm LVIDd: 6.3 cm FS: 3.4 % Ao root diam: 3.7 cm IVSd: 1.5 cm LVIDs: 6.1 cm EDV(Teich): 203.7 ml Ao root area: 10.8 cm2 LVPWd: 1.1 cm ESV(Teich): 188.1 ml LA dimension: 4.5 cm EF(Teich): 7.6 % Doppler Measurements & Calculations MV E max juana: MV P1/2t max juana: Ao V2 max: LV V1 max P.0 cm/sec 86.0 cm/sec 99.9 cm/sec 2.6 mmHg MV A max juana: MV P1/2t: 62.1 msec Ao max PG: LV V1 max: 60.7 cm/sec MVA(P1/2t): 3.5 cm2 4.0 mmHg 80.6 cm/sec MV E/A: 1.4 MV dec slope: 405.5 cm/sec2 MV dec time: 0.16 sec PA V2 max: PI end-d juana: TR max juana: MV P1/2t-pr_phl: 44.9 cm/sec 166.5 cm/sec 385.5 cm/sec 62.1 msec PA max PG: TR max P.81 mmHg 59.4 mmHg Left Ventricle The left ventricle is moderately to severly dilated. There is normal left ventricular wall thickness. LV EF is Less than 10%. Left ventricular systolic function is severely reduced. Doppler measurements suggest impaired left ventricular relaxation, which is associated with grade I/IV or mild diastolic dysfunction. There is severe global hypokinesis of the left ventricle. There is no thrombus. probably no ASD,VSD or PFO. Right Ventricle The right ventricle is mildly dilated. The right ventricle is not well visualized secondary to technical limitations. Atria The right atrium is normal. The left atrium is moderately dilated. Mitral Valve There is no evidence of mitral valve prolapse. There is no vegetation seen on the mitral valve. There is no mitral valve stenosis. There is a mild to moderate amount of mitral regurgitation. Aortic Valve There is no aortic valvular vegetation. There is no aortic valve stenosis. No aortic regurgitation is present. Tricuspid Valve There is no tricuspid stenosis. There is a moderate amount of tricuspid regurgitation. There is servere pulmonary hypertension by echo. RVSP is 74 to 79 mm of Hg , mean of 15 to 30/. Pulmonic Valve There is no pulmonic valvular stenosis. There is a mild amount of pulmonic regurgitation. Great Vessels The aortic root is normal size. The inferior vena cava appeared dilated and decreased < 50% with respiration (RAP 15-20 mmHg). Effusions There is no pericardial effusion. : WILMAR STAPLETON Lakshmi
--- NOTE | 2020-03-12 19:31 | PDOC PROGRESS REPORT ---
Subjective Date:: 03/12/20 Subjective:: The patient is a 59-year-old male with a past medical history of systolic CHF, COPD, chronic respiratory failure on home oxygen at 2 L/min, CAD, DM2, and hypertension who was admitted 03/11/2024 acute on chronic systolic CHF exacerbation secondary to acute pulmonary embolism with infarction. Patient was seen on afternoon rounds. He was found sitting up to the edge of the bed, comfortably, on supplemental oxygen at 3 L/min while eating his lunch. He uses 2 L/min at baseline. He reports decreased dyspnea today while at rest, although, does continue to feel quite short of breath with minimal exertion. He notes that his peripheral edema is also slightly improved this afternoon. 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 He does have an AICD. He does tell me that he was recently transitioned to Coumadin due to not being able to afford the co- pays for Eliquis or Xarelto. He denies fever, chills, chest pain, palpitations, defibrillation, abdominal pain, nausea, vomiting, diarrhea. He does note slight orthopnea. He has no questions or concerns at this time. No concerns per nursing. Reason For Visit: CONGESTIVE HEART FAILURE,PULMONARY AMBOLISM Physical Exam Vital Signs: Temp Pulse Resp BP Pulse Ox 97.3 F 62 16 112/68 98 03/12/20 15:49 03/12/20 17:27 03/12/20 17:27 03/12/20 15:49 03/12/20 17:27 Intake & Output 03/11/20 03/12/20 03/13/20 06:59 06:59 06:59 Intake Total 120 940 Output Total 550 1560 Balance -430 -620 Weight 98.2 kg General appearance: PRESENT: no acute distress, cooperative, disheveled, well- developed, well-nourished Head exam: PRESENT: atraumatic, normocephalic Eye exam: PRESENT: conjunctiva pink, EOMI, PERRLA. ABSENT: scleral icterus Mouth exam: PRESENT: moist, tongue midline Respiratory exam: PRESENT: crackles - Lateral, symmetrical, unlabored, other - Supplemental oxygen via nasal cannula. ABSENT: rales, rhonchi, wheezes Cardiovascular exam: PRESENT: RRR, +S1, +S2. ABSENT: diastolic murmur, rubs, systolic murmur Pulses: PRESENT: normal dorsalis pedis pul Vascular exam: PRESENT: normal capillary refill GI/Abdominal exam: PRESENT: distended, normal bowel sounds, soft. ABSENT: guarding, mass, organolmegaly, rebound, tenderness Rectal exam: PRESENT: deferred Extremities exam: PRESENT: full ROM, +2 edema - BLE, other - Stasis dermatitis with serosanguineous fluid bilateral lower legs; L>R. ABSENT: calf tenderness, clubbing, pedal edema Neurological exam: PRESENT: alert, awake, oriented to person, oriented to place, oriented to time, oriented to situation, CN II-XII grossly intact. ABSENT: motor sensory deficit Psychiatric exam: PRESENT: appropriate affect, normal mood. ABSENT: homicidal ideation, suicidal ideation Skin exam: PRESENT: dry, warm. ABSENT: cyanosis, rash Results Laboratory Results: 03/12/20 05:36 03/12/20 05:36 03/11/20 03/12/20 03/12/20 20:15 05:36 05:36 WBC 6.7 RBC 5.10 Hgb 15.7 D Hct 49.0 MCV 96 MCH 30.7 MCHC 32.0 RDW 17.5 H Plt Count 243 Carbonic Acid 1.47 H HCO3/H2CO3 Ratio 22:1 ABG pH 7.44 ABG pCO2 49.0 H ABG pO2 76.5 L ABG HCO3 32.8 H ABG O2 Saturation 95.6 ABG Base Excess 7.0 FiO2 3L Sodium 137.2 Potassium 4.1 Chloride 95 L Carbon Dioxide 39 H Anion Gap 3 L BUN 34 H Creatinine 1.45 H Est GFR ( Amer) > 60 Glucose 158 H Calcium 8.9 Urine Color Urine Appearance Urine pH Ur Specific [place] Urine Protein Urine Glucose (UA) Urine Ketones Urine Blood Urine Nitrite Ur Leukocyte Esterase Urine WBC (Auto) Urine RBC (Auto) 03/12/20 06:20 WBC RBC Hgb Hct MCV MCH MCHC RDW Plt Count Carbonic Acid HCO3/H2CO3 Ratio ABG pH ABG pCO2 ABG pO2 ABG HCO3 ABG O2 Saturation ABG Base Excess FiO2 Sodium Potassium Chloride Carbon Dioxide Anion Gap BUN Creatinine Est GFR ( Amer) Glucose Calcium Urine Color YELLOW Urine Appearance CLEAR Urine pH 6.0 Ur Specific [place] 1.027 Urine Protein >=500 H Urine Glucose (UA) NEGATIVE Urine Ketones NEGATIVE Urine Blood NEGATIVE Urine Nitrite NEGATIVE Ur Leukocyte Esterase NEGATIVE Urine WBC (Auto) 2 Urine RBC (Auto) 3 03/11/20 03/11/20 03/11/20 15:50 15:50 17:20 Creatine Kinase 132 CK-MB (CK-2) 5.52 H Troponin I 0.072 0.074 NT-Pro-B Natriuret Pep 23097 H 03/12/20 05:36 Creatine Kinase CK-MB (CK-2) Troponin I 0.086 NT-Pro-B Natriuret Pep Impressions: Chest X-Ray 03/11/20 14:30 IMPRESSION: Left lower lobe pneumonia. Scrotum Ultrasound 03/11/20 14:31 IMPRESSION: 1, NO EVIDENCE OF TESTICULAR MASS OR TORSION. 2. Scrotal wall thickening bilaterally, greater on the left. 3. Small subcentimeter cysts in the head of the epididymis bilaterally. Chest/Abdomen CTA 03/11/20 18:05 IMPRESSION: 1. Findings suspicious for acute pulmonary emboli within segmental and subsegmental pulmonary arteries supplying the left lower lobe. Some p eripheral wedge-shaped opacities in this region likely represent pulmonary infarcts. There may be component of rounded atelectasis. 2. Findings suggestive of pulmonary edema with ground-glass attenuation and septal thickening is well as bilateral pleural effusions. 3. Main pulmonary is enlarged. Reflex of contrast into the IVC and hepatic veins. Findings could be due to underlying chronic pulmonary hypertension, though this could be exacerbated due to the acute PE. Assessment and Plan - Diagnosis (1) Pulmonary embolism and infarction Is this a current diagnosis for this admission?: Yes Plan: Presents with worsening shortness of breath Patient was on warfarin but difficult to confirm compliance. Changed from Eliquis due to financial burden of copay. INR was subtherapeutic on this presentation CTA chest: Showed acute PE in segmental and subsegmental arteries supplying the left lower lobe with possible infarction Currently is hemodynamically stable Started on Lovenox Will resume Coumadin; requires Lovenox bridge. Closely monitor vital signs and respiratory parameters (2) Congestive heart failure Qualifiers: Heart failure chronicity: acute on chronic Is this a current diagnosis for this admission?: Yes Plan: Acute on chronic systolic CHF exacerbation. CT of the chest showed signs of pulmonary edema and pulmonary hypertension with the left lower lobe PE BNP was elevated at 37,900. She also has bicarb of 41 BMP ABG done at the ED showed pH/PCO2/PO2 of 7.44/49/96 Scrotal ultrasound showed no evidence of torsion Echocardiogram shows LVEF less than 10%. Continued home medication regiment of carvedilol, Hydralazine, and isosorbide. Continues on aspirin and statin therapy. Diuresing with IV furosemide Cardiac diet. Strict I&O's, daily weight, fluid restriction Cardiology has been consulted; discussed with Dr. Álvarez. He plans to start patient on Entresto. Continue telemetry monitoring (3) Acute kidney injury Is this a current diagnosis for this admission?: Yes Plan: Likely prerenal cardiorenal Cr trending down; 1.54-> 1.45 Unknown baseline Continue diuresis with IV Lasix Continue monitoring renal function tests Renally dose medications and avoid nephrotoxic's (4) COPD (chronic obstructive pulmonary disease) Is this a current diagnosis for this admission?: Yes Plan: Currently not in acute exacerbation Continue DuoNeb as needed Continue supplemental oxygen as needed. No indications for antibiotics or steroid therapy at this time. (5) Elevated troponin Is this a current diagnosis for this admission?: Yes Plan: Patient denies any chest pain Troponin 0.072-> 0.74-> 0.86 Likely type II non-STEMI due to demand mismatch EKG showed no significant ST-T wave changes Continue aspirin and statin On telemetry monitoring Cardiology is now consulted. (6) Metabolic alkalosis Is this a current diagnosis for this admission?: Yes Plan: Serum bicarb level was 41 on presentation ABG showed a pH of 7.44 with PCO2 of 49 Likely chronic compensation for respiratory acidosis Less likely to be contraction alkalosis due to patient being volume overloaded Monitor BMP (7) Poorly-controlled hypertension Is this a current diagnosis for this admission?: Yes Plan: Improved blood pressures today. Patient's home medication regiment of carvedilol, hydralazine, isosorbide was renewed. Currently being diuresed with IV furosemide. Cardiology is consulted; per Dr. Gonzalez, plans to start Entresto. Closely monitor vital signs (8) Obesity (BMI 30-39.9) Is this a current diagnosis for this admission?: Yes Plan: Lifestyle modification, dietary compliance, and weight loss encouraged. (9) Tobacco dependence Is this a current diagnosis for this admission?: Yes Plan: Counseled him about tobacco cessation and encouraged him to cut down on quit Offered nicotine patch while inpatient but patient declined - Time Time Spent with patient: 35 or more minutes Medications reviewed and adjusted accordingly: Yes Anticipated Discharge Disposition: Home, Self Care Anticipated Discharge Timeframe: TBD
--- NOTE | 2020-03-12 19:31 | PDOC CONSULTATION ---
Consultation-Blank Consultation: CARDIOLOGY CONSULTATION by Dr. Kia Collado on 03/12/2020. Patient seen at 12 noon. 60 minutes spent with patient with more than 50% time spent in direct patient care. CONSULT REQUESTING PHYSICIAN: , [facility] REASON FOR CONSULTATION: PATIENT WITH HEART FAILURE. HISTORY OF PRESENT ILLNESS: PATIENT is a very poor historian. The patient has a history of coronary artery disease, history of myocardial infarction 2014, with cardiomyopathy with reduced LV ejection fraction which is 35% as per patient history of AICD placement, COPD continues to smoke, and hypertension and diabetes mellitus states that he drove from [place] about 2 weeks ago since then he has been having progressively increasing PND orthopnea and leg edema. He is also having increasing leg edema and swelling of his scrotum. He denies any palpitations anginal symptoms or firing of his AICD. The patient is on Coumadin but he does not know exactly for what. He states he used to be on Eliquis, but was changed to Coumadin since he could not afford the Eliquis. His renal function only slightly impaired, but the patient is not on a DESTINY inhibitor or ARB. On questioning the patient denies any symptoms suggestive of prior allergy to an DESTINY or ARB clinically. He also had a CT scan of the chest with contrast which showed that there was suspicion for pulmonary emboli. Hence the patient has been placed on Lovenox and also is on Coumadin. He states since admission he has feels felt better. He also denies any fever chills or rigors. He has been having dry cough especially when he lies down he coughs more and this is most likely PND equal. There is no firing of his AICD. Past Medical History Cardiac Medical History: Reports: Congestive Heart Failure, Myocardial Infarction - 2015, Hyperlipidema, Hypertension Denies: DVT, Pulmonary Embolism Pulmonary Medical History: Reports: Chronic Obstructive Pulmonary Disease (COPD) Endocrine Medical History: Reports: Diabetes Mellitus Type 2 Past Surgical History Past Surgical History: Reports: Cardiac Catheterization - 3 stents, Coronary Artery Bypass Graft, Pacemaker - And defibrillator, Vascular Surgery - rt femoral aneurysm Social History Information Source: Patient Lives with: Family Smoking Status: Current Every Day Smoker Electronic Cigarette use?: No Hx Recreational Drug Use: No Drugs: None - Advance Directive Resuscitation Status: Full Code Family History Parental Family History Reviewed: Yes Children Family History Reviewed: Yes Sibling(s) Family History Reviewed.: Yes Medication/Allergy Allergies/Adverse Reactions: No Known Allergies Allergy (Unverified 03/11/20 14:15) RESUSCITATION STATUS: The patient is a full code. His daughter is a surrogate healthcare decision maker. Current Medications Generic Name Dose Route Start Last Admin Trade Name Freq PRN Reason Stop Dose Admin Acetaminophen 650 mg 03/11/20 21:00 Acetaminophen 325 Mg Tablet PO 04/10/20 20:59 Q4HP PRN FEVER >101 Albuterol/Ipratropium 3 ml 03/11/20 21:00 03/12/20 17:27 Ipratropium/Albuterol 0.5-2.5 Mg/3 Ml Ampul NEB 04/10/20 20:59 3 ml [id number] PRN Administration SHORTNESS OF BREATH Aspirin 81 mg 03/12/20 10:00 03/12/20 09:24 Aspirin 81 Mg Tablet, Chewable PO 04/11/20 09:59 81 mg DAILY BRIDGET Administration Carvedilol 25 mg 03/12/20 10:00 03/12/20 09:24 Carvedilol 12.5 Mg Tablet PO 04/11/20 09:59 25 mg Q12 BRIDGET Administration Dextrose 12.5 gm 03/11/20 21:15 Dextrose 50%-Water 25 Gm/50 Ml Disp.Syrin IV 04/10/20 21:14 PRN PRN FOR BG 50-69 IN ALERT PATIENT Protocol Dextrose 25 gm 03/11/20 21:15 Dextrose 50%-Water 25 Gm/50 Ml Disp.Syrin IV 04/10/20 21:14 PRN PRN PER PROTOCOL Protocol Enoxaparin Sodium 100 mg 03/11/20 22:00 03/12/20 09:25 Enoxaparin Sodium Inj 100 Mg/1 Ml Disp.Syrin SUBCUT 04/10/20 21:59 100 mg Q12 BRIDGET Administration Famotidine 20 mg 03/11/20 22:00 03/12/20 09:22 Famotidine 20 Mg Tablet PO 04/10/20 21:59 20 mg Q12 BRIDGET Administration Furosemide 40 mg 03/11/20 22:00 03/12/20 09:25 Furosemide Inj/Pf 40 Mg/4 Ml Sdv IV 04/10/20 21:59 40 mg Q12 BRIDGET Administration Glucagon 1 mg 03/11/20 21:15 Glucagon,Human Recomb 1 Mg Inj IM 04/10/20 21:14 PRN PRN Evaluate for BG < 70 Protocol Glucose 15 gm 03/11/20 21:15 Dextrose 40% Gel 15 Gm Tube PO 04/10/20 21:14 PRN PRN FOR BG 50-69 IN ALERT PATIENT Protocol Glucose 30 gm 03/11/20 21:15 Dextrose 40% Gel 15 Gm Tube PO 04/10/20 21:14 PRN PRN FOR BG < 50 IN ALERT PATIENT Protocol Hydralazine HCl 25 mg 03/11/20 22:00 03/12/20 16:29 Hydralazine Hcl 25 Mg Tablet PO 04/10/20 21:59 25 mg Q8 BRDIGET Administration Insulin Human Isoph/Insulin Regular 25 unit 03/12/20 08:00 03/12/20 17:42 Hum Insulin Nph/Reg Insulin Hm 100 Unit/1 Ml 3 Ml SUBCUT 04/11/20 07:59 25 unit BIDACBS BRIDGET Administration Insulin Human Regular 0 - 12 unit 03/11/20 22:00 03/12/20 17:33 Insulin Reg, Human 100 Unit/Ml 3 Ml Vial (Pyx) SUBCUT 04/10/20 21:59 Not Given ACHS [facility] Protocol Isosorbide Mononitrate 30 mg 03/12/20 10:00 03/12/20 09:24 Isosorbide Mononitrate 30 Mg Tab.Er.24h PO 04/11/20 09:59 30 mg DAILY [facility] Administration Pharmacy Consult 1 dose 03/12/20 19:26 Coumadin Pharmacy To Dose PO 04/11/20 19:25 .PHARMACY TO DOSE PRN THIS MED IS NOT "PRN" Protocol Discontinued Medications Generic Name Dose Route Start Last Admin Trade Name Freq PRN Reason Stop Dose Admin Carvedilol 25 mg 03/11/20 20:11 03/11/20 20:48 Carvedilol 12.5 Mg Tablet PO 03/11/20 20:12 25 mg NOW ONE Administration Enoxaparin Sodium 100 mg 03/11/20 18:49 03/11/20 19:46 Enoxaparin Sodium Inj 100 Mg/1 Ml Disp.Syrin SUBCUT 03/11/20 18:50 100 mg ONCE ONE Administration Furosemide 40 mg 03/11/20 18:50 03/11/20 19:41 Furosemide Inj/Pf 40 Mg/4 Ml Sdv IV 03/11/20 18:51 40 mg NOW ONE Administration Hydralazine HCl 25 mg 03/11/20 20:11 03/11/20 20:48 Hydralazine Hcl 25 Mg Tablet PO 03/11/20 20:12 25 mg NOW ONE Administration Morphine Sulfate 2 mg 03/11/20 14:28 03/11/20 17:21 Morphine Sulfate 10 Mg/Ml Inj IV 03/11/20 14:29 Not Given NOW ONE Morphine Sulfate 2 mg 03/11/20 18:00 03/11/20 19:31 Morphine Sulfate 10 Mg/Ml Inj IV 03/11/20 18:01 Not Given NOW ONE Review of Systems Constitutional: ABSENT: chills, fever(s), headache(s), weight gain, weight loss Eyes: ABSENT: visual disturbances Ears: ABSENT: hearing changes Nose, Mouth, and Throat: ABSENT: headache(s), mouth pain, sore throat Cardiovascular: PRESENT: as per HPI Respiratory: PRESENT: as per HPI Gastrointestinal: ABSENT: abdominal pain, constipation, diarrhea, hematemesis, hematochezia, nausea, vomiting Genitourinary: ABSENT: dysuria, hematuria Musculoskeletal: ABSENT: joint swelling Neurological: ABSENT: abnormal gait, abnormal speech, confusion, dizziness, focal weakness, syncope Psychiatric: ABSENT: anxiety, depression, homidical ideation, suicidal ideation Endocrine: ABSENT: cold intolerance, heat intolerance, polydipsia, polyuria Hematologic/Lymphatic: ABSENT: easy bleeding, easy bruising PHYSICAL EXAMINATION: The patient is moderately obese. In no acute distress. Selected Entries 03/12/20 11:48 Temperature 97.7 F Temperature Oral Source Pulse Rate 62 Respiratory 18 Rate Blood Pressure 126/72 H Blood Pressure 90 Mean BP Location Left Arm BP Position Sitting O2 Sat by Pulse 97 Oximetry Oxygen Flow 3.00 Rate Oxygen Delivery Nasal Cannula Method HEAD: Is atraumatic normocephalic. EYES: Pupils equal round regular reactive light accommodation. Extraocular movements are normal. There is no conjunctival pallor. There is no scleral icterus. EYES: Pupils are equal round regular reactive to light accommodation. Extraocular movements are normal. There is no conjunctival pallor. There is no scleral icterus. NOSE: There is no deviated nasal septum. There is no inflammation nasal mucous membrane. MOUTH: Mucous membranes of the mouth are moist. Tongue is moist. There is no ulcers. There is no bleeding from the gums. THROAT: There is no redness of the oropharynx. There is no exudates. SKIN: There is no skin rashes there is no petechia or ecchymosis. His BP of 2+ edema in both legs. Neck: Is supple. There is JVD present. Carotids are equal there is no bruit. There is no lymphadenopathy. There is no goiter. There is no accessory muscle respiration use. Trachea central. LUNGS: There is diminished air entry prolonged expiration without any rhonchi or wheezing. There is bibasilar rales of CHF. HEART: S1-S2 is heard. There is no S3 gallop. There is no S4 gallop. Systolic murmur left sternal border and the apex there is no rub. ABDOMEN: Is soft. Nontender. There is no hepatosplenomegaly. Bowel sounds are well heard. There is no tender areas masses. EXTREMITIES: Femorals are diminished there is no femoral bruits. Leg pulses are difficult to palpate. There is 2+ pedal edema bilaterally. There is scrotal swelling present. There is no DVT or cellulitis. There is no calf tenderness. There is no cyanosis or clubbing. 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 PSYCHIATRIC: The patient judgment insight are intact his affect is normal. Labs- Entire Visit 03/11/20 03/11/20 03/11/20 15:50 15:50 15:50 WBC 8.2 RBC 5.73 H Hgb 17.9 H Hct 55.5 H MCV 97 MCH 31.3 MCHC 32.3 RDW 17.4 H Plt Count 332 Lymph % (Auto) 11.0 L [place] % (Auto) 9.2 Eos % (Auto) 2.0 Baso % (Auto) 1.4 Absolute Neuts (auto) 6.2 Absolute Lymphs (auto) 0.9 Absolute Monos (auto) 0.8 Absolute Eos (auto) 0.2 Absolute Basos (auto) 0.1 Seg Neutrophils % 76.4 PT INR Carbonic Acid HCO3/H2CO3 Ratio ABG pH ABG pCO2 ABG pO2 ABG HCO3 ABG Total CO2 ABG O2 Saturation ABG Base Excess FiO2 Sodium 138.0 Potassium 4.1 Chloride 94 L Carbon Dioxide 41 H* Anion Gap 3 L BUN 35 H Creatinine 1.54 H Est GFR ( Amer) 57 L Est GFR (MDRD) Non-Af 47 L Glucose 214 H POC Glucose Hemoglobin A1c % Calcium 9.2 Total Bilirubin 1.6 H Direct Bilirubin 0.3 Neonat Total Bilirubin Not Reportable Neonat Direct Bilirubin Not Reportable Neonat Indirect Bili Not Reportable AST 26 ALT 13 Alkaline Phosphatase 103 Creatine Kinase 132 CK-MB (CK-2) 5.52 H Troponin I 0.072 NT-Pro-B Natriuret Pep 39329 H Total Protein 6.6 Albumin 3.4 L Lipase 68.7 Urine Color Urine Appearance Urine pH Ur Specific [place] Urine Protein Urine Glucose (UA) Urine Ketones Urine Blood Urine Nitrite Urine Bilirubin Urine Urobilinogen Ur Leukocyte Esterase Urine WBC (Auto) Urine RBC (Auto) Squamous Epi Cells Auto Urine Mucus (Auto) Urine Ascorbic Acid 03/11/20 03/11/20 03/11/20 15:50 17:20 20:15 WBC RBC Hgb Hct MCV MCH MCHC RDW Plt Count Lymph % (Auto) [place] % (Auto) Eos % (Auto) Baso % (Auto) Absolute Neuts (auto) Absolute Lymphs (auto) Absolute Monos (auto) Absolute Eos (auto) Absolute Basos (auto) Seg Neutrophils % PT 16.5 H INR 1.31 Carbonic Acid 1.47 H HCO3/H2CO3 Ratio 22:1 ABG pH 7.44 ABG pCO2 49.0 H ABG pO2 76.5 L ABG HCO3 32.8 H ABG Total CO2 34.3 H ABG O2 Saturation 95.6 ABG Base Excess 7.0 FiO2 3L Sodium Potassium Chloride Carbon Dioxide Anion Gap BUN Creatinine Est GFR ( Amer) Est GFR (MDRD) Non-Af Glucose POC Glucose Hemoglobin A1c % Calcium Total Bilirubin Direct Bilirubin Neonat Total Bilirubin Neonat Direct Bilirubin Neonat Indirect Bili AST ALT Alkaline Phosphatase Creatine Kinase CK-MB (CK-2) Troponin I 0.074 NT-Pro-B Natriuret Pep Total Protein Albumin Lipase Urine Color Urine Appearance Urine pH Ur Specific [place] Urine Protein Urine Glucose (UA) Urine Ketones Urine Blood Urine Nitrite Urine Bilirubin Urine Urobilinogen Ur Leukocyte Esterase Urine WBC (Auto) Urine RBC (Auto) Squamous Epi Cells Auto Urine Mucus (Auto) Urine Ascorbic Acid 03/11/20 03/12/20 03/12/20 22:25 05:36 05:36 WBC 6.7 RBC 5.10 Hgb 15.7 D Hct 49.0 MCV 96 MCH 30.7 MCHC 32.0 RDW 17.5 H Plt Count 243 Lymph % (Auto) [place] % (Auto) Eos % (Auto) Baso % (Auto) Absolute Neuts (auto) Absolute Lymphs (auto) Absolute Monos (auto) Absolute Eos (auto) Absolute Basos (auto) Seg Neutrophils % PT INR Carbonic Acid HCO3/H2CO3 Ratio ABG pH ABG pCO2 ABG pO2 ABG HCO3 ABG Total CO2 ABG O2 Saturation ABG Base Excess FiO2 Sodium 137.2 Potassium 4.1 Chloride 95 L Carbon Dioxide 39 H Anion Gap 3 L BUN 34 H Creatinine 1.45 H Est GFR ( Amer) > 60 Est GFR (MDRD) Non-Af 50 L Glucose 158 H POC Glucose 223 H Hemoglobin A1c % Calcium 8.9 Total Bilirubin Direct Bilirubin Neonat Total Bilirubin Neonat Direct Bilirubin Neonat Indirect Bili AST ALT Alkaline Phosphatase Creatine Kinase CK-MB (CK-2) Troponin I NT-Pro-B Natriuret Pep Total Protein Albumin Lipase Urine Color Urine Appearance Urine pH Ur Specific [place] Urine Protein Urine Glucose (UA) Urine Ketones Urine Blood Urine Nitrite Urine Bilirubin Urine Urobilinogen Ur Leukocyte Esterase Urine WBC (Auto) Urine RBC (Auto) Squamous Epi Cells Auto Urine Mucus (Auto) Urine Ascorbic Acid 03/12/20 03/12/20 03/12/20 05:36 05:36 06:20 WBC RBC Hgb Hct MCV MCH MCHC RDW Plt Count Lymph % (Auto) [place] % (Auto) Eos % (Auto) Baso % (Auto) Absolute Neuts (auto) Absolute Lymphs (auto) Absolute Monos (auto) Absolute Eos (auto) Absolute Basos (auto) Seg Neutrophils % PT INR Carbonic Acid HCO3/H2CO3 Ratio ABG pH ABG pCO2 ABG pO2 ABG HCO3 ABG Total CO2 ABG O2 Saturation ABG Base Excess FiO2 Sodium Potassium Chloride Carbon Dioxide Anion Gap BUN Creatinine Est GFR ( Amer) Est GFR (MDRD) Non-Af Glucose POC Glucose Hemoglobin A1c % 8.8 H Calcium Total Bilirubin Direct Bilirubin Neonat Total Bilirubin Neonat Direct Bilirubin Neonat Indirect Bili AST ALT Alkaline Phosphatase Creatine Kinase CK-MB (CK-2) Troponin I 0.086 NT-Pro-B Natriuret Pep Total Protein Albumin Lipase Urine Color YELLOW Urine Appearance CLEAR Urine pH 6.0 Ur Specific [place] 1.027 Urine Protein >=500 H Urine Glucose (UA) NEGATIVE Urine Ketones NEGATIVE Urine Blood NEGATIVE Urine Nitrite NEGATIVE Urine Bilirubin NEGATIVE Urine Urobilinogen NEGATIVE Ur Leukocyte Esterase NEGATIVE Urine WBC (Auto) 2 Urine RBC (Auto) 3 Squamous Epi Cells Auto 1 Urine Mucus (Auto) RARE Urine Ascorbic Acid NEGATIVE 03/12/20 03/12/20 03/12/20 08:08 11:46 17:09 WBC RBC Hgb Hct MCV MCH MCHC RDW Plt Count Lymph % (Auto) [place] % (Auto) Eos % (Auto) Baso % (Auto) Absolute Neuts (auto) Absolute Lymphs (auto) Absolute Monos (auto) Absolute Eos (auto) Absolute Basos (auto) Seg Neutrophils % PT INR Carbonic Acid HCO3/H2CO3 Ratio ABG pH ABG pCO2 ABG pO2 ABG HCO3 ABG Total CO2 ABG O2 Saturation ABG Base Excess FiO2 Sodium Potassium Chloride Carbon Dioxide Anion Gap BUN Creatinine Est GFR ( Amer) Est GFR (MDRD) Non-Af Glucose POC Glucose 122 H 159 H 100 Hemoglobin A1c % Calcium Total Bilirubin Direct Bilirubin Neonat Total Bilirubin Neonat Direct Bilirubin Neonat Indirect Bili AST ALT Alkaline Phosphatase Creatine Kinase CK-MB (CK-2) Troponin I NT-Pro-B Natriuret Pep Total Protein Albumin Lipase Urine Color Urine Appearance Urine pH Ur Specific [place] Urine Protein Urine Glucose (UA) Urine Ketones Urine Blood Urine Nitrite Urine Bilirubin Urine Urobilinogen Ur Leukocyte Esterase Urine WBC (Auto) Urine RBC (Auto) Squamous Epi Cells Auto Urine Mucus (Auto) Urine Ascorbic Acid THE patient's initial EKG: Shows sinus rhythm. Nonspecific IVCD. Probable left atrial abnormality. The patient second EKG shows sinus rhythm probable left atrial abnormality. Diffuse T inversion consistent with ischemia. ECHOCARDIOGRAM: Shows the left ventricle is dilated. There is severely reduced LV ejection fraction with his LV systolic function less than 10%. There is moderate tricuspid regurgitation with severe pulmonary hypertension. Right ventricle systolic pressure is 74 to 70 mmHg. There is moderate mitral regurgitation. There is no aortic stenosis. There is no significant aortic regurgitation. There is no pericardial effusion. Chest X-Ray 03/11/20 14:30 IMPRESSION: Left lower lobe pneumonia. Scrotum Ultrasound 03/11/20 14:31 IMPRESSION: 1, NO EVIDENCE OF TESTICULAR MASS OR TORSION. 2. Scrotal wall thickening bilaterally, greater on the left. 3. Small subcentimeter cysts in the head of the epididymis bilaterally. Chest/Abdomen CTA 03/11/20 18:05 IMPRESSION: 1. Findings suspicious for acute pulmonary emboli within segmental and subsegmental pulmonary arteries supplying the left lower lobe. Some peripheral wedge-shaped opacities in this region likely represent pulmonary infarcts. There may be component of rounded atelectasis. 2. Findings suggestive of pulmonary edema with ground-glass attenuation and septal thickening is well as bilateral pleural effusions. 3. Main pulmonary is enlarged. Reflex of contrast into the IVC and hepatic veins. Findings could be due to underlying chronic pulmonary hypertension, though this could be exacerbated due to the acute PE. IMPRESSION/RECOMMENDATION: 1. Acute on chronic systolic heart failure: Continue current medications. The patient states his symptoms are improving. We will add an ARB. We will continue the patient's Coreg and hydralazine. Hydralazine will help as pulmonary hypertension as also would start. 2. Acute pulmonary emboli: Continue Lovenox, and warfarin. Once INR is 2.0 or greater then would recommend stopping Lovenox and continue the patient's warfarin 3. Severe pulmonary hypertension: This is a combination of left heart failure and the patient's COPD. Hydralazine should help. We will try to increase hydralazine as tolerated. 4. COPD: Patient continues to smoke. There is no evidence of acute exacerbation of COPD. 5. Dilated cardiomyopathy with LV ejection fraction less than 10%. Continue beta-maggie and ARB and hydralazine. Continue IV Lasix for now. 6. Coronary artery disease history of myocardial infarction the patient denies any anginal symptoms. 7. Hypertension: Blood pressure is stable. 8. Diabetes mellitus. 9. RENAL insufficiency. Expect this to improve with treatment. Avoid nephrotoxic drugs. Medications reviewed. Medical regimen management plan discussed with attending provider on the case. Medical decision making is of high complexity. 60 minutes spent as patient more than 50% time spent in direct patient care. Medical regimen and management plan discussed with the attending provider on the case. Will follow.
[2020-03-12 20:10] LABS: HEMATOCRIT 47.8 % (37.9-51.0); HEMOGLOBIN 15.3 g/dL (13.5-17.0); MEAN CORPUSCULAR HEMOGLOBIN 30.6 pg (27.0-33.4); MEAN CORPUSCULAR HGB CONC 31.9 g/dL (32.0-36.0); MEAN CORPUSCULAR VOLUME 96 fl (80-97); PLATELET COUNT 231 10^3/uL (150-450); RED BLOOD COUNT 4.99 10^6/uL (4.35-5.55); RED CELL DISTRIBUTION WIDTH 17.1 % (11.5-14.0)
[2020-03-12] MEDS: LOSARTAN POTASSIUM 25 MG TABLET PO SCH (22:22)
[2020-03-12 22:50] LABS: APPEARANCE,URINE SLIGHTLY-CLOUDY; BILIRUBIN,URINE NEGATIVE (NEGATIVE); COLOR,URINE YELLOW; GLUCOSE, URINE NEGATIVE (NEGATIVE); KETONES,URINE NEGATIVE (NEGATIVE); LEUKOCYTE ESTERASE,URINE NEGATIVE (NEGATIVE); NITRITE,URINE NEGATIVE (NEGATIVE); PROTEIN,URINE >=500 mg/dL (NEGATIVE); URINE SPECIFIC GRAVITY 1.027
[2020-03-13 05:54] LABS: HEMATOCRIT 44.3 % (37.9-51.0); HEMOGLOBIN 14.4 g/dL (13.5-17.0); MEAN CORPUSCULAR HEMOGLOBIN 31.2 pg (27.0-33.4); MEAN CORPUSCULAR HGB CONC 32.5 g/dL (32.0-36.0); MEAN CORPUSCULAR VOLUME 96 fl (80-97); PLATELET COUNT 223 10^3/uL (150-450); RED BLOOD COUNT 4.61 10^6/uL (4.35-5.55); RED CELL DISTRIBUTION WIDTH 17.1 % (11.5-14.0); WHITE BLOOD COUNT 6.4 10^3/uL (4.0-10.5)
[2020-03-13] MEDS: HYDRALAZINE HCL 25 MG TABLET PO SCH ×3 (05:54→22:04)
[2020-03-13 06:23] LABS: ANION GAP 6 (5-19); BLOOD UREA NITROGEN 35 mg/dL (7-20); CALCIUM 8.5 mg/dL (8.4-10.2); CARBON DIOXIDE 35 mmol/L (22-30); CHLORIDE 98 mmol/L (98-107); GLUCOSE 111 mg/dL (75-110); POTASSIUM 3.8 mmol/L (3.6-5.0)
[2020-03-13 06:27] LABS: INTERNATIONAL RATION (INR) 1.24; PROTHROMBIN TIME 15.8 SEC (11.4-15.4)
[2020-03-13] MEDS: INSULIN REG, HUMAN 100 UNIT/ML 3 ML VIAL (PYX) SUBCUT SCH ×4 (08:43→22:21)
[2020-03-13] MEDS: HUM INSULIN NPH/REG INSULIN HM 100 UNIT/1 ML 3 ML SUBCUT SCH ×2 (08:49→17:41)
[2020-03-13] MEDS: ENOXAPARIN SODIUM INJ 100 MG/1 ML DISP.SYRIN SUBCUT SCH ×2 (10:40→22:08)
[2020-03-13] MEDS: FUROSEMIDE INJ/PF 40 MG/4 ML SDV IV SCH ×2 (10:40→22:05)
[2020-03-13] MEDS: ISOSORBIDE MONONITRATE 30 MG TAB.ER.24H PO SCH (10:40)
[2020-03-13] MEDS: LOSARTAN POTASSIUM 25 MG TABLET PO SCH ×2 (10:40→22:04)
[2020-03-13] MEDS: CARVEDILOL 12.5 MG TABLET PO SCH ×2 (10:40→22:03)
[2020-03-13] MEDS: ASPIRIN 81 MG TABLET, CHEWABLE PO SCH (10:40)
[2020-03-13] MEDS: FAMOTIDINE 20 MG TABLET PO SCH ×2 (10:41→22:08)
[2020-03-13] MEDS: IPRATROPIUM/ALBUTEROL 0.5-2.5 MG/3 ML AMPUL NEB PRN (12:28)
--- NOTE | 2020-03-13 14:57 | PDOC PROGRESS REPORT ---
Subjective Date:: 03/13/20 Subjective:: The patient is a 59-year-old male with a past medical history of systolic CHF, COPD, chronic respiratory failure on home oxygen at 2 L/min, CAD, DM2, and hypertension who was admitted 03/11/2024 acute on chronic systolic CHF exacerbation secondary to acute pulmonary embolism with infarction. Patient was seen on morning rounds. He was found resting in bed, comfortably, on supplemental oxygen at 3 L/min. He uses 2 L/min at baseline. He reports his breathing is much better. Does not appreciate much difference in his edema. He denies fever, chills, chest pain, palpitations, defibrillation, abdominal pain, nausea, vomiting, diarrhea. He has no questions or concerns at this time. No concerns per nursing. Reason For Visit: CONGESTIVE HEART FAILURE,PULMONARY AMBOLISM Physical Exam Vital Signs: Temp Pulse Resp BP Pulse Ox 97.6 F 64 18 143/76 H 97 03/13/20 11:22 03/13/20 12:28 03/13/20 12:28 03/13/20 11:22 03/13/20 12:28 Intake & Output 03/12/20 03/13/20 03/14/20 06:59 06:59 06:59 Intake Total 120 1162 Output Total 550 2160 700 Balance -430 -998 -700 Weight 98.2 kg 98.5 kg General appearance: PRESENT: no acute distress, cooperative, obese, well- developed, well-nourished Head exam: PRESENT: atraumatic, normocephalic Eye exam: PRESENT: conjunctiva pink, EOMI, PERRLA. ABSENT: scleral icterus Mouth exam: PRESENT: moist, tongue midline Respiratory exam: PRESENT: crackles - Bibasilar; significantly improved from yesterday, symmetrical, unlabored, other - supplemental oxygen by nasal cannula. ABSENT: rales, rhonchi, wheezes Cardiovascular exam: PRESENT: RRR. ABSENT: diastolic murmur, rubs, systolic murmur Pulses: PRESENT: normal dorsalis pedis pul Vascular exam: PRESENT: normal capillary refill GI/Abdominal exam: PRESENT: distended, normal bowel sounds, soft. ABSENT: guarding, mass, organolmegaly, rebound, tenderness Rectal exam: PRESENT: deferred Extremities exam: PRESENT: full ROM, +1 edema - BLE, other - Stasis dermatitis with serosanguineous fluid bilateral lower legs; L>R. ABSENT: calf tenderness, clubbing, pedal edema Musculoskeletal exam: PRESENT: ambulatory Neurological exam: PRESENT: alert, awake, oriented to person, oriented to place, oriented to time, oriented to situation, CN II-XII grossly intact. ABSENT: motor sensory deficit Psychiatric exam: PRESENT: appropriate affect, normal mood. ABSENT: homicidal ideation, suicidal ideation Skin exam: PRESENT: dry, warm. ABSENT: cyanosis, rash Results Laboratory Results: 03/13/20 05:41 03/13/20 05:41 03/12/20 03/12/20 03/13/20 19:58 22:23 05:41 WBC 6.0 6.4 RBC 4.99 4.61 Hgb 15.3 14.4 Hct 47.8 44.3 MCV 96 96 MCH 30.6 31.2 MCHC 31.9 L 32.5 RDW 17.1 H 17.1 H Plt Count 231 223 Sodium Potassium Chloride Carbon Dioxide Anion Gap BUN Creatinine Est GFR ( Amer) Glucose Calcium Urine Color YELLOW Urine Appearance SLIGHTLY-CLOUDY Urine pH 5.0 Ur Specific [place] 1.027 Urine Protein >=500 H Urine Glucose (UA) NEGATIVE Urine Ketones NEGATIVE Urine Blood NEGATIVE Urine Nitrite NEGATIVE Ur Leukocyte Esterase NEGATIVE Urine WBC (Auto) 2 Urine RBC (Auto) 0 03/13/20 05:41 WBC RBC Hgb Hct MCV MCH MCHC RDW Plt Count Sodium 139.4 Potassium 3.8 Chloride 98 Carbon Dioxide 35 H Anion Gap 6 BUN 35 H Creatinine 1.46 H Est GFR ( Amer) > 60 Glucose 111 H Calcium 8.5 Urine Color Urine Appearance Urine pH Ur Specific [place] Urine Protein Urine Glucose (UA) Urine Ketones Urine Blood Urine Nitrite Ur Leukocyte Esterase Urine WBC (Auto) Urine RBC (Auto) 03/11/20 03/11/20 03/11/20 15:50 15:50 17:20 Creatine Kinase 132 CK-MB (CK-2) 5.52 H Troponin I 0.072 0.074 NT-Pro-B Natriuret Pep 34005 H 03/12/20 05:36 Creatine Kinase CK-MB (CK-2) Troponin I 0.086 NT-Pro-B Natriuret Pep Impressions: Chest X-Ray 03/11/20 14:30 IMPRESSION: Left lower lobe pneumonia. Scrotum Ultrasound 03/11/20 14:31 IMPRESSION: 1, NO EVIDENCE OF TESTICULAR MASS OR TORSION. 2. Scrotal wall thickening bilaterally, greater on the left. 3. Small subcentimeter cysts in the head of the epididymis bilaterally. Chest/Abdomen CTA 03/11/20 18:05 IMPRESSION: 1. Findings suspicious for acute pulmonary emboli within segmental and subsegmental pulmonary arteries supplying the left lower lobe. Some peripheral wedge-shaped opacities in this region likely represent pulmonary infarcts. There may be component of rounded atelectasis. 2. Findings suggestive of pulmonary edema with ground-glass attenuation and septal thickening is well as bilateral pleural effusions. 3. Main pulmonary is enlarged. Reflex of contrast into the IVC and hepatic veins. Findings could be due to underlying chronic pulmonary hypertension, though this could be exacerbated due to the acute PE. Assessment and Plan - Diagnosis (1) Pulmonary embolism and infarction Is this a current diagnosis for this admission?: Yes Plan: Presents with worsening shortness of breath Patient was on warfarin but difficult to confirm compliance. Changed from Eliquis due to financial burden of copay. INR was subtherapeutic on this presentation CTA chest: Showed acute PE in segmental and subsegmental arteries supplying the left lower lobe with possible infarction Currently is hemodynamically stable Started on Lovenox Will resume Coumadin; requires Lovenox bridge. Closely monitor vital signs and respiratory parameters (2) Congestive heart failure Qualifiers: Heart failure chronicity: acute on chronic Is this a current diagnosis for this admission?: Yes Plan: Acute on chronic systolic CHF exacerbation. CT of the chest showed signs of pulmonary edema and pulmonary hypertension with the left lower lobe PE BNP was elevated at 37,900. She also has bicarb of 41 BMP ABG done at the ED showed pH/PCO2/PO2 of 7.44/49/96 Scrotal ultrasound showed no evidence of torsion Echocardiogram shows LVEF less than 10%. Continued home medication regiment of carvedilol, Hydralazine, and isosorbide. Continues on aspirin and statin therapy. Diuresing with IV furosemide Cardiac diet. Strict I&O's, daily weight, fluid restriction Cardiology has been consulted; discussed with Dr. Álvarez. He has started patient on Losartan. Continue telemetry monitoring (3) Acute kidney injury Is this a current diagnosis for this admission?: Yes Plan: Likely prerenal cardiorenal Cr trending down; 1.54-> 1.45-> 1.46 Unknown baseline Continue diuresis with IV Lasix Continue monitoring renal function tests Renally dose medications and avoid nephrotoxic's (4) COPD (chronic obstructive pulmonary disease) Is this a current diagnosis for this admission?: Yes Plan: Currently not in acute exacerbation Continue DuoNeb as needed Continue supplemental oxygen as needed. No indications for antibiotics or steroid therapy at this time. (5) Elevated troponin Is this a current diagnosis for this admission?: Yes Plan: Patient denies any chest pain Troponin 0.072-> 0.74-> 0.86 Likely type II non-STEMI due to demand mismatch EKG showed no significant ST-T wave changes Continue aspirin and statin On telemetry monitoring Cardiology is now consulted. (6) Metabolic alkalosis Is this a current diagnosis for this admission?: Yes Plan: Improving. Serum bicarb level was 41 on presentation ABG showed a pH of 7.44 with PCO2 of 49 Likely chronic compensation for respiratory acidosis Less likely to be contraction alkalosis due to patient being volume overloaded Monitor BMP (7) Poorly-controlled hypertension Is this a current diagnosis for this admission?: Yes Plan: Good blood pressures control. Patient's home medication regiment of carvedilol, hydralazine, isosorbide was renewed. Currently being diuresed with IV furosemide. Cardiology is consulted; per Dr. Gonzalez; has started patient on Losartan. Closely monitor vital signs (8) Obesity (BMI 30-39.9) Is this a current diagnosis for this admission?: Yes Plan: Lifestyle modification, dietary compliance, and weight loss encouraged. (9) Tobacco dependence Is this a current diagnosis for this admission?: Yes Plan: Counseled him about tobacco cessation and encouraged him to cut down on quit Offered nicotine patch while inpatient but patient declined - Time Time Spent with patient: 25-34 minutes Medications reviewed and adjusted accordingly: Yes Anticipated Discharge Disposition: Home, Self Care Anticipated Discharge Timeframe: TBD
--- NOTE | 2020-03-13 21:01 | Progress Note ---
Provider Note Provider Note: CARDIOLOGY PROGRESS NOTE by Dr. Kia Gonzalez on 03/13/2020. SUBJECTIVE: The patient states his shortness of breath is much improved. His leg edema is also improved. He denies any chest pain or discomfort. There is no firing of the AICD. There is no arrhythmias seen on the monitor. There is no hemoptysis. There is no TIA CVA symptoms. He has no orthopnea PND. His scrotal swelling also has decreased. PHYSICAL EXAMINATION: The patient is moderately obese. In no acute distress. Selected Entries 03/13/20 15:09 Temperature 97.5 F Temperature Oral Source Pulse Rate 65 Respiratory 17 Rate Blood Pressure 137/74 H Blood Pressure 95 Mean BP Location Right Arm BP Position Sitting O2 Sat by Pulse 96 Oximetry Oxygen Flow 2.00 Rate Oxygen Delivery Nasal Cannula Method HEAD: Is atraumatic normocephalic. EYES: Pupils equal round regular reactive light accommodation. Extraocular movements are normal. There is no conjunctival pallor. There is no scleral icterus. EYES: Pupils are equal round regular reactive to light accommodation. Extraocular movements are normal. There is no conjunctival pallor. There is no scleral icterus. NOSE: There is no deviated nasal septum. There is no inflammation nasal mucous membrane. MOUTH: Mucous membranes of the mouth are moist. Tongue is moist. There is no ulcers. There is no bleeding from the gums. THROAT: There is no redness of the oropharynx. There is no exudates. SKIN: There is no skin rashes there is no petechia or ecchymosis. His BP of 2+ edema in both legs. Neck: Is supple. There is JVD present. Carotids are equal there is no bruit. There is no lymphadenopathy. There is no goiter. There is no accessory muscle respiration use. Trachea central. LUNGS: There is diminished air entry prolonged expiration without any rhonchi or wheezing. There is bibasilar rales of CHF. HEART: S1-S2 is heard. There is no S3 gallop. There is no S4 gallop. Systolic murmur left sternal border and the apex there is no rub. ABDOMEN: Is soft. Nontender. There is no hepatosplenomegaly. Bowel sounds are well heard. There is no tender areas masses. EXTREMITIES: Femorals are diminished there is no femoral bruits. Leg pulses are difficult to palpate. There is 2+ pedal edema bilaterally. There is scrotal swelling present. There is no DVT or cellulitis. There is no calf tenderness. There is no cyanosis or clubbing. BRICK POINTER: The patient is conscious awake alert oriented x3 with no focal deficits. PSYCHIATRIC: The patient judgment insight are intact his affect is normal. The patient's 24-hour total intake is 1162 mL. The patient's total 24-hour output is 2160 mL. Labs- All tests 24 hr 03/12/20 03/13/20 03/13/20 22:23 05:41 05:41 WBC 6.4 RBC 4.61 Hgb 14.4 Hct 44.3 MCV 96 MCH 31.2 MCHC 32.5 RDW 17.1 H Plt Count 223 PT 15.8 H INR 1.24 Sodium Potassium Chloride Carbon Dioxide Anion Gap BUN Creatinine Est GFR ( Amer) Est GFR (MDRD) Non-Af Glucose POC Glucose Calcium Urine Color YELLOW Urine Appearance SLIGHTLY-CLOUDY Urine pH 5.0 Ur Specific [place] 1.027 Urine Protein >=500 H Urine Glucose (UA) NEGATIVE Urine Ketones NEGATIVE Urine Blood NEGATIVE Urine Nitrite NEGATIVE Urine Bilirubin NEGATIVE Urine Urobilinogen 4.0 H Ur Leukocyte Esterase NEGATIVE Urine WBC (Auto) 2 Urine RBC (Auto) 0 Urine Bacteria (Auto) TRACE Urine Mucus (Auto) RARE Urine Ascorbic Acid NEGATIVE 03/13/20 03/13/20 03/13/20 05:41 08:12 11:22 WBC RBC Hgb Hct MCV MCH MCHC RDW Plt Count PT INR Sodium 139.4 Potassium 3.8 Chloride 98 Carbon Dioxide 35 H Anion Gap 6 BUN 35 H Creatinine 1.46 H Est GFR ( Amer) > 60 Est GFR (MDRD) Non-Af 50 L Glucose 111 H POC Glucose 121 H 121 H Calcium 8.5 Urine Color Urine Appearance Urine pH Ur Specific [place] Urine Protein Urine Glucose (UA) Urine Ketones Urine Blood Urine Nitrite Urine Bilirubin Urine Urobilinogen Ur Leukocyte Esterase Urine WBC (Auto) Urine RBC (Auto) Urine Bacteria (Auto) Urine Mucus (Auto) Urine Ascorbic Acid 03/13/20 15:08 WBC RBC Hgb Hct MCV MCH MCHC RDW Plt Count PT INR Sodium Potassium Chloride Carbon Dioxide Anion Gap BUN Creatinine Est GFR ( Amer) Est GFR (MDRD) Non-Af Glucose POC Glucose 107 Calcium Urine Color Urine Appearance Urine pH Ur Specific [place] Urine Protein Urine Glucose (UA) Urine Ketones Urine Blood Urine Nitrite Urine Bilirubin Urine Urobilinogen Ur Leukocyte Esterase Urine WBC (Auto) Urine RBC (Auto) Urine Bacteria (Auto) Urine Mucus (Auto) Urine Ascorbic Acid Chest X-Ray 03/11/20 14:30 IMPRESSION: Left lower lobe pneumonia. Scrotum Ultrasound 03/11/20 14:31 IMPRESSION: 1, NO EVIDENCE OF TESTICULAR MASS OR TORSION. 2. Scrotal wall thickening bilaterally, greater on the left. 3. Small subcentimeter cysts in the head of the epididymis bilaterally. Chest/Abdomen CTA 03/11/20 18:05 IMPRESSION: 1. Findings suspicious for acute pulmonary emboli within segmental and subsegmental pulmonary arteries supplying the left lower lobe. Some peripheral wedge-shaped opacities in this region likely represent pulmonary infarcts. There may be component of rounded atelectasis. 2. Findings suggestive of pulmonary edema with ground-glass attenuation and septal thickening is well as bilateral pleural effusions. 3. Main pulmonary is enlarged. Reflex of contrast into the IVC and hepatic veins. Findings could be due to underlying chronic pulmonary hypertension, though this could be exacerbated due to the acute PE. IMPRESSION/RECOMMENDATION: 1. Acute on chronic systolic heart failure: Continue current medications, but will increase the patient's losartan.. The patient states his symptoms are improving. We will add an ARB. We will continue the patient's Coreg and hydralazine. Hydralazine will help as pulmonary hypertension as also would start. 2. Acute pulmonary emboli: Continue Lovenox, and warfarin. Once INR is 2.0 or greater then would recommend stopping Lovenox and continue the patient's warfarin 3. Severe pulmonary hypertension: This is a combination of left heart failure and the patient's COPD. Hydralazine should help. Will increase the patient's losartan to 50 mg p.o. every 12 hours. 4. COPD: Patient continues to smoke. There is no evidence of acute exacerbation of COPD. 5. Dilated cardiomyopathy with LV ejection fraction less than 10%. Continue beta-maggie and ARB and hydralazine. Continue IV Lasix for now. 6. Coronary artery disease history of myocardial infarction the patient denies any anginal symptoms. 7. Hypertension: Blood pressure is stable. 8. Diabetes mellitus. 9. RENAL insufficiency. Expect this to improve with treatment. Avoid nephrotoxic drugs. The patient's GFR is improved to 50. Medications reviewed. Medical regimen management plan discussed with attending provider on the case. Medical decision making is of high complexity. 60 minutes spent as patient more than 50% time spent in direct patient care. Medical regimen and management plan discussed with the attending provider on the case. Will follow.
[2020-03-13] MEDS ORDERED: OXYCODONE-ACETAMINOPHEN 5-325 MG TABLET ONE (22:02)
[2020-03-13] MEDS: WARFARIN SODIUM 7.5 MG TABLET PO SCH (22:05)
[2020-03-13] MEDS ORDERED: OXYCODONE-ACETAMINOPHEN 5-325 MG TABLET PO ONE (22:15)
[2020-03-14] MEDS: HYDRALAZINE HCL 25 MG TABLET PO SCH ×3 (05:36→21:40)
[2020-03-14 07:30] LABS: INTERNATIONAL RATION (INR) 1.17; PROTHROMBIN TIME 15.2 SEC (11.4-15.4)
[2020-03-14 07:45] LABS: ANION GAP 5 (5-19); BLOOD UREA NITROGEN 35 mg/dL (7-20); CALCIUM 8.7 mg/dL (8.4-10.2); CARBON DIOXIDE 38 mmol/L (22-30); CHLORIDE 96 mmol/L (98-107); GLUCOSE 120 mg/dL (75-110); POTASSIUM 4.3 mmol/L (3.6-5.0)
[2020-03-14] MEDS: INSULIN REG, HUMAN 100 UNIT/ML 3 ML VIAL (PYX) SUBCUT SCH ×4 (08:08→21:40)
[2020-03-14] MEDS: HUM INSULIN NPH/REG INSULIN HM 100 UNIT/1 ML 3 ML SUBCUT SCH ×2 (08:23→15:00)
[2020-03-14] MEDS: IPRATROPIUM/ALBUTEROL 0.5-2.5 MG/3 ML AMPUL NEB PRN (09:19)
[2020-03-14] MEDS: ISOSORBIDE MONONITRATE 30 MG TAB.ER.24H PO SCH (09:57)
[2020-03-14] MEDS: CARVEDILOL 12.5 MG TABLET PO SCH ×2 (09:57→21:37)
[2020-03-14] MEDS: LOSARTAN POTASSIUM 25 MG TABLET PO SCH ×2 (09:57→21:37)
[2020-03-14] MEDS: FAMOTIDINE 20 MG TABLET PO SCH ×2 (09:57→21:37)
[2020-03-14] MEDS: ENOXAPARIN SODIUM INJ 100 MG/1 ML DISP.SYRIN SUBCUT SCH ×2 (09:57→21:38)
[2020-03-14] MEDS: ASPIRIN 81 MG TABLET, CHEWABLE PO SCH (09:57)
[2020-03-14] MEDS: FUROSEMIDE INJ/PF 40 MG/4 ML SDV IV SCH ×2 (09:58→21:36)
--- NOTE | 2020-03-14 11:59 | PDOC PROGRESS REPORT ---
Subjective Date:: 03/14/20 Subjective:: The patient is a 59-year-old male with a past medical history of systolic CHF, COPD, chronic respiratory failure on home oxygen at 2 L/min, CAD, DM2, and hypertension who was admitted 03/11/2024 acute on chronic systolic CHF exacerbation secondary to acute pulmonary embolism with infarction. Patient was seen on morning rounds. He was found resting in bed, comfortably, on his baseline supplemental oxygen at 2 L/min. He reports his breathing is much better; denies dyspnea at rest or when ambulating. Does think his BLE edema has improved. Otherwise feels well. Understand need to continue Lovenox/Coumadin bridge. He denies fever, chills, chest pain, palpitations, defibrillation, abdominal pain, nausea, vomiting, diarrhea. He has no questions or concerns at this time. No concerns per nursing. Reason For Visit: CONGESTIVE HEART FAILURE,PULMONARY AMBOLISM Physical Exam Vital Signs: Temp Pulse Resp BP Pulse Ox 97.4 F 68 20 135/86 H 98 03/14/20 08:47 03/14/20 09:19 03/14/20 09:19 03/14/20 07:56 03/14/20 09:19 Intake & Output 03/13/20 03/14/20 03/15/20 06:59 06:59 06:59 Intake Total 1162 300 Output Total 2160 1900 Balance -998 -1600 Weight 98.5 kg 98.7 kg General appearance: PRESENT: no acute distress, cooperative, obese, well- developed, well-nourished Head exam: PRESENT: atraumatic, normocephalic Eye exam: PRESENT: conjunctiva pink, EOMI, PERRLA. ABSENT: scleral icterus Mouth exam: PRESENT: moist, tongue midline Respiratory exam: PRESENT: crackles - scant bibasilar, symmetrical, unlabored, other - baseline oxygen requirement of 2lpm. ABSENT: rales, rhonchi, wheezes Cardiovascular exam: PRESENT: RRR. ABSENT: diastolic murmur, rubs, systolic murmur Pulses: PRESENT: normal dorsalis pedis pul Vascular exam: PRESENT: normal capillary refill Extremities exam: PRESENT: full ROM, +1 edema - BLE. ABSENT: calf tenderness, clubbing, pedal edema Musculoskeletal exam: PRESENT: ambulatory Neurological exam: PRESENT: alert, awake, oriented to person, oriented to place, oriented to time, oriented to situation, CN II-XII grossly intact. ABSENT: motor sensory deficit Psychiatric exam: PRESENT: appropriate affect, normal mood. ABSENT: homicidal ideation, suicidal ideation Skin exam: PRESENT: dry, warm, other - Stasis dermatitis bilateral lower legs; L>R. No longer with seorus weaping.. ABSENT: cyanosis, rash Results Laboratory Results: 03/13/20 05:41 03/14/20 07:05 03/14/20 07:05 Sodium 139.0 Potassium 4.3 Chloride 96 L Carbon Dioxide 38 H Anion Gap 5 BUN 35 H Creatinine 1.58 H Est GFR ( Amer) 55 L Glucose 120 H Calcium 8.7 03/11/20 03/11/20 03/11/20 15:50 15:50 17:20 Creatine Kinase 132 CK-MB (CK-2) 5.52 H Troponin I 0.072 0.074 NT-Pro-B Natriuret Pep [id number] H 03/12/20 05:36 Creatine Kinase CK-MB (CK-2) Troponin I 0.086 NT-Pro-B Natriuret Pep Impressions: Chest X-Ray 03/11/20 14:30 IMPRESSION: Left lower lobe pneumonia. Scrotum Ultrasound 03/11/20 14:31 IMPRESSION: 1, NO EVIDENCE OF TESTICULAR MASS OR TORSION. 2. Scrotal wall thickening bilaterally, greater on the left. 3. Small subcentimeter cysts in the head of the epididymis bilaterally. Chest/Abdomen CTA 03/11/20 18:05 IMPRESSION: 1. Findings suspicious for acute pulmonary emboli within segmental and subsegmental pulmonary arteries supplying the left lower lobe. Some peripheral wedge-shaped opacities in this region likely represent pulmonary infarcts. There may be component of rounded atelectasis. 2. Findings suggestive of pulmonary edema with ground-glass attenuation and septal thickening is well as bilateral pleural effusions. 3. Main pulmonary is enlarged. Reflex of contrast into the IVC and hepatic veins. Findings could be due to underlying chronic pulmonary hypertension, though this could be exacerbated due to the acute PE. Assessment and Plan - Diagnosis (1) Pulmonary embolism and infarction Is this a current diagnosis for this admission?: Yes Plan: Presents with worsening shortness of breath Patient was on warfarin but difficult to confirm compliance. Changed from Eliquis due to financial burden of copay. INR was subtherapeutic on this presentation CTA chest: Showed acute PE in segmental and subsegmental arteries supplying the left lower lobe with possible infarction Currently is hemodynamically stable Continue on Lovenox to coumadin bridge. INR goal 2-3 (2) Congestive heart failure Qualifiers: Heart failure chronicity: acute on chronic Is this a current diagnosis for this admission?: Yes Plan: Acute on chronic systolic CHF exacerbation. CT of the chest showed signs of pulmonary edema and pulmonary hypertension with the left lower lobe PE BNP was elevated at 37,900. She also has bicarb of 41 BMP ABG done at the ED showed pH/PCO2/PO2 of 7.44/49/96 Scrotal ultrasound showed no evidence of torsion Echocardiogram shows LVEF less than 10%. Negative 3L fluid balance, though weight is unchanged. Continued home medication regiment of carvedilol, Hydralazine, and isosorbide. Continues on aspirin and statin therapy. Diuresing with IV furosemide Cardiac diet. Strict I&O's, daily weight, fluid restriction Cardiology has been consulted; discussed with Dr. Álvarez. He has started patient on Losartan. Continue telemetry monitoring (3) Acute kidney injury Is this a current diagnosis for this admission?: Yes Plan: Likely prerenal cardiorenal Cr trending down; 1.54-> 1.45-> 1.46 Unknown baseline Continue diuresis with IV Lasix Continue monitoring renal function tests Renally dose medications and avoid nephrotoxic's (4) COPD (chronic obstructive pulmonary disease) Is this a current diagnosis for this admission?: Yes Plan: Currently not in acute exacerbation Continue DuoNeb as needed Continue supplemental oxygen as needed. No indications for antibiotics or steroid therapy at this time. (5) Elevated troponin Is this a current diagnosis for this admission?: Yes Plan: Patient denies any chest pain Troponin 0.072-> 0.74-> 0.86 Likely type II non-STEMI due to demand mismatch EKG showed no significant ST-T wave changes Continue aspirin and statin On telemetry monitoring Cardiology is now consulted. (6) Metabolic alkalosis Is this a current diagnosis for this admission?: Yes Plan: Stable' 41-> 39-> 35-> 38 ABG showed a pH of 7.44 with PCO2 of 49 Likely chronic compensation for respiratory acidosis (7) Poorly-controlled hypertension Is this a current diagnosis for this admission?: Yes Plan: Good blood pressures control. Patient's home medication regiment of carvedilol, hydralazine, isosorbide was renewed. Currently being diuresed with IV furosemide. Cardiology is consulted; per Dr. Gonzalez; has started patient on Losartan. Closely monitor vital signs (8) Obesity (BMI 30-39.9) Is this a current diagnosis for this admission?: Yes Plan: Lifestyle modification, dietary compliance, and weight loss encouraged. (9) Tobacco dependence Is this a current diagnosis for this admission?: Yes Plan: Counseled him about tobacco cessation and encouraged him to cut down on quit Offered nicotine patch while inpatient but patient declined - Plan Summary Summary: Approaching pulmonary/cardiac readiness for discharge. INR not yet therapeutic. - Time Time Spent with patient: 25-34 minutes Medications reviewed and adjusted accordingly: Yes Anticipated Discharge Disposition: Home, Self Care Anticipated Discharge Timeframe: TBD
[2020-03-14] MEDS: ACETAMINOPHEN 325 MG TABLET PO PRN (18:11)
--- NOTE | 2020-03-14 19:41 | Progress Note ---
Provider Note Provider Note: CARDIOLOGY PROGRESS NOTE by Dr. Kia Gonzalez on 03/14/2020. SUBJECTIVE: The patient states his shortness of breath is much improved. His leg edema is also improved. He denies any chest pain or discomfort. There is no firing of the AICD. There is no arrhythmias seen on the monitor. There is n o hemoptysis. There is no TIA CVA symptoms. He has no orthopnea PND. His scrotal swelling also has decreased. PHYSICAL EXAMINATION: The patient moderately obese in no acute distress. Selected Entries 03/14/20 16:00 Temperature 98.0 F Temperature Oral Source Pulse Rate 91 Respiratory 18 Rate Blood Pressure 137/72 H [Left Upper Arm ] Blood Pressure 93 Mean [Left Upper Arm] O2 Sat by Pulse 96 Oximetry Oxygen Delivery Nasal Cannula Method ( includes room air) Oxygen Flow 2 Rate HEAD: Is atraumatic normocephalic. EYES: Pupils equal round regular reactive light accommodation. Extraocular movements are normal. There is no conjunctival pallor. There is no scleral icterus. EYES: Pupils are equal round regular reactive to light accommodation. Extraocular movements are normal. There is no conjunctival pallor. There is no scleral icterus. NOSE: There is no deviated nasal septum. There is no inflammation nasal mucous membrane. MOUTH: Mucous membranes of the mouth are moist. Tongue is moist. There is no ulcers. There is no bleeding from the gums. THROAT: There is no redness of the oropharynx. There is no exudates. SKIN: There is no skin rashes there is no petechia or ecchymosis. His BP of 2+ edema in both legs. Neck: Is supple. There is JVD present. Carotids are equal there is no bruit. There is no lymphadenopathy. There is no goiter. There is no accessory muscle respiration use. Trachea central. LUNGS: There is diminished air entry prolonged expiration without any rhonchi or wheezing. There are no rales of CHF. HEART: S1-S2 is heard. There is no S3 gallop. There is no S4 gallop. Systolic murmur left sternal border and the apex there is no rub. ABDOMEN: Is soft. Nontender. There is no hepatosplenomegaly. Bowel sounds are well heard. There is no tender areas masses. EXTREMITIES: Femorals are diminished there is no femoral bruits. Leg pulses are difficult to palpate. There is 1- pedal edema bilaterally, with venous stasis dermatitis.. There is s mild crotal swelling present. There is no DVT or cellulitis. There is no calf tenderness. There is no cyanosis or clubbing. 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 PSYCHIATRIC: The patient judgment insight are intact his affect is normal. The patient's 24-hour total intake is ?300 mL. The patient's total 24-hour output is 1900 mL. Labs- All tests 24 hr 03/13/20 03/14/20 03/14/20 21:54 07:05 07:05 PT 15.2 INR 1.17 Sodium 139.0 Potassium 4.3 Chloride 96 L Carbon Dioxide 38 H Anion Gap 5 BUN 35 H Creatinine 1.58 H Est GFR ( Amer) 55 L Est GFR (MDRD) Non-Af 45 L Glucose 120 H POC Glucose 139 H Calcium 8.7 03/14/20 03/14/20 03/14/20 07:56 12:06 16:08 PT INR Sodium Potassium Chloride Carbon Dioxide Anion Gap BUN Creatinine Est GFR ( Amer) Est GFR (MDRD) Non-Af Glucose POC Glucose 150 H 146 H 102 Calcium Chest X-Ray 03/11/20 14:30 IMPRESSION: Left lower lobe pneumonia. Scrotum Ultrasound 03/11/20 14:31 IMPRESSION: 1, NO EVIDENCE OF TESTICULAR MASS OR TORSION. 2. Scrotal wall thickening bilaterally, greater on the left. 3. Small subcentimeter cysts in the head of the epididymis bilaterally. Chest/Abdomen CTA 03/11/20 18:05 IMPRESSION: 1. Findings suspicious for acute pulmonary emboli within segmental and subsegmental pulmonary arteries supplying the left lower lobe. Some peripheral wedge-shaped opacities in this region likely represent pulmonary infarcts. There may be component of rounded atelectasis. 2. Findings suggestive of pulmonary edema with ground-glass attenuation and septal thickening is well as bilateral pleural effusions. 3. Main pulmonary is enlarged. Reflex of contrast into the IVC and hepatic veins. Findings could be due to underlying chronic pulmonary hypertension, though this could be exacerbated due to the acute PE. IMPRESSION/RECOMMENDATION: 1. Acute on chronic systolic heart failure: Continue current medications, but will increase the patient's losartan.. The patient states his symptoms are improving. We will add an ARB. We will continue the patient's Coreg and hydralazine. Hydralazine will help as pulmonary hypertension as also would start. 2. Acute pulmonary emboli: Continue Lovenox, and warfarin. Once INR is 2.0 or greater then would recommend stopping Lovenox and continue the patient's warfarin 3. Severe pulmonary hypertension: This is a combination of left heart failure and the patient's COPD. Hydralazine should help. Will increase the patient's losartan to 50 mg p.o. every 12 hours. 4. COPD: Patient continues to smoke. There is no evidence of acute exacerbation of COPD. 5. Dilated cardiomyopathy with LV ejection fraction less than 10%. Continue beta-maggie and ARB and hydralazine. Continue IV Lasix for now. 6. Coronary artery disease history of myocardial infarction the patient denies any anginal symptoms. 7. Hypertension: Blood pressure is stable. 8. Diabetes mellitus. 9. RENAL insufficiency. Expect this to improve with treatment. Avoid nephrotoxic drugs. The patient's GFR is slightly reduced at 45. Medications reviewed. Medical regimen management plan discussed with attending provider on the case. Medical decision making is of high complexity. 60 minutes spent as patient more than 50% time spent in direct patient care. Medical regimen and management plan discussed with the attending provider on the case. Will follow.
[2020-03-14] MEDS: WARFARIN SODIUM 7.5 MG TABLET PO SCH (21:40)
[2020-03-15] MEDS: ACETAMINOPHEN 325 MG TABLET PO PRN (02:11)
[2020-03-15 05:37] LABS: HEMOGLOBIN 14.2 g/dL (13.5-17.0); MEAN CORPUSCULAR HGB CONC 32.4 g/dL (32.0-36.0); MEAN CORPUSCULAR VOLUME 96 fl (80-97); PLATELET COUNT 211 10^3/uL (150-450); RED BLOOD COUNT 4.59 10^6/uL (4.35-5.55); RED CELL DISTRIBUTION WIDTH 17.1 % (11.5-14.0); WHITE BLOOD COUNT 6.1 10^3/uL (4.0-10.5)
[2020-03-15 05:54] LABS: INTERNATIONAL RATION (INR) 1.18; PROTHROMBIN TIME 15.2 SEC (11.4-15.4)
[2020-03-15 05:55] LABS: PARTIAL THROMBOPLASTIN TIME 40.6 SEC (23.5-35.8)
[2020-03-15] MEDS: HYDRALAZINE HCL 25 MG TABLET PO SCH ×3 (05:56→22:24)
[2020-03-15 06:04] LABS: BLOOD UREA NITROGEN 38 mg/dL (7-20); CALCIUM 8.5 mg/dL (8.4-10.2); GLUCOSE 81 mg/dL (75-110)
[2020-03-15 06:10] LABS: CARBON DIOXIDE 38 mmol/L (22-30); CHLORIDE 96 mmol/L (98-107)
[2020-03-15 06:11] LABS: ANION GAP 4 (5-19)
[2020-03-15] MEDS: INSULIN REG, HUMAN 100 UNIT/ML 3 ML VIAL (PYX) SUBCUT SCH ×4 (08:01→23:04)
[2020-03-15] MEDS: HUM INSULIN NPH/REG INSULIN HM 100 UNIT/1 ML 3 ML SUBCUT SCH ×2 (08:02→17:09)
[2020-03-15] MEDS: SODIUM CHLORIDE NASAL SPRAY 44 ML NASL SCH ×4 (09:31→23:07)
[2020-03-15] MEDS: FUROSEMIDE INJ/PF 40 MG/4 ML SDV IV SCH ×2 (09:32→22:23)
[2020-03-15] MEDS: FAMOTIDINE 20 MG TABLET PO SCH ×2 (09:32→22:24)
[2020-03-15] MEDS: LOSARTAN POTASSIUM 25 MG TABLET PO SCH ×2 (09:32→22:23)
[2020-03-15] MEDS: CARVEDILOL 12.5 MG TABLET PO SCH ×2 (09:32→22:24)
[2020-03-15] MEDS: ASPIRIN 81 MG TABLET, CHEWABLE PO SCH (09:33)
[2020-03-15] MEDS: ENOXAPARIN SODIUM INJ 100 MG/1 ML DISP.SYRIN SUBCUT SCH ×2 (09:33→22:24)
[2020-03-15] MEDS: ISOSORBIDE MONONITRATE 30 MG TAB.ER.24H PO SCH (09:33)
[2020-03-15] MEDS: IPRATROPIUM/ALBUTEROL 0.5-2.5 MG/3 ML AMPUL NEB PRN (13:17)
--- NOTE | 2020-03-15 13:58 | PDOC PROGRESS REPORT ---
Subjective Date:: 03/15/20 Subjective:: The patient is a 59-year-old male with a past medical history of systolic CHF, COPD, chronic respiratory failure on home oxygen at 2 L/min, CAD, DM2, and hypertension who was admitted 03/11/2024 acute on chronic systolic CHF exacerbation secondary to acute pulmonary embolism with infarction. Patient was seen on morning rounds. He was found sitting up to the chair, comfortably, on room air. He states he wears 2lpm continuously at home, but has taken his oxygen off this morning due to frequent nose bleed overnight. SpO2 is 82%. He does agree to wear his oxygen for now. We have added a humidifier and started nasal saline spray. He reports his breathing is returned to his baseline. Does think his BLE edema has improved. Otherwise feels well. Understand need to continue Lovenox/Coumadin bridge. He denies fever, chills, chest pain, palpitations, defibrillation, abdominal pain, nausea, vomiting, diarrhea. He has no questions or concerns at this time. No concerns per nursing. Reason For Visit: CONGESTIVE HEART FAILURE,PULMONARY AMBOLISM Physical Exam Vital Signs: Temp Pulse Resp BP Pulse Ox 97.4 F 58 L 20 131/72 H 95 03/15/20 12:00 03/15/20 12:00 03/15/20 12:00 03/15/20 12:00 03/15/20 12:00 Intake & Output 03/14/20 03/15/20 03/16/20 06:59 06:59 06:59 Intake Total 300 1400 Output Total 1900 1655 Balance -1600 -255 Weight 98.7 kg 99.1 kg General appearance: PRESENT: no acute distress, cooperative, morbidly obese, well-developed, well-nourished Exam: Dry blood to bilateral nares from epistaxis overnight. Head exam: PRESENT: atraumatic, normocephalic Eye exam: PRESENT: conjunctiva pink, EOMI, PERRLA. ABSENT: scleral icterus Mouth exam: PRESENT: moist, tongue midline Teeth exam: PRESENT: poor dentation Respiratory exam: PRESENT: clear to auscultation miguelangel, decreased breath sounds - poor inspiratory effort, symmetrical, unlabored. ABSENT: rales, rhonchi, wheezes Cardiovascular exam: PRESENT: RRR. ABSENT: diastolic murmur, rubs, systolic murmur Vascular exam: PRESENT: normal capillary refill Extremities exam: PRESENT: full ROM, +1 edema - pitting BLE. ABSENT: calf tenderness, clubbing, pedal edema Neurological exam: PRESENT: alert, awake, oriented to person, oriented to place, oriented to time, oriented to situation, CN II-XII grossly intact. ABSENT: motor sensory deficit Psychiatric exam: PRESENT: appropriate affect, normal mood. ABSENT: homicidal ideation, suicidal ideation Skin exam: PRESENT: dry, warm, other - Stasis dermatitis bilateral lower legs; L>R. No longer with seorus weaping. ABSENT: cyanosis, rash Results Laboratory Results: 03/15/20 05:23 03/15/20 05:23 03/15/20 03/15/20 05:23 05:23 WBC 6.1 RBC 4.59 Hgb 14.2 Hct 44.0 MCV 96 MCH 31.0 MCHC 32.4 RDW 17.1 H Plt Count 211 Sodium 137.6 Potassium 4.0 Chloride 96 L Carbon Dioxide 38 H Anion Gap 4 L BUN 38 H Creatinine 1.53 H Est GFR ( Amer) 57 L Glucose 81 Calcium 8.5 03/11/20 03/11/20 03/11/20 15:50 15:50 17:20 Creatine Kinase 132 CK-MB (CK-2) 5.52 H Troponin I 0.072 0.074 NT-Pro-B Natriuret Pep 00254 H 03/12/20 05:36 Creatine Kinase CK-MB (CK-2) Troponin I 0.086 NT-Pro-B Natriuret Pep Impressions: Chest X-Ray 03/11/20 14:30 IMPRESSION: Left lower lobe pneumonia. Scrotum Ultrasound 03/11/20 14:31 IMPRESSION: 1, NO EVIDENCE OF TESTICULAR MASS OR TORSION. 2. Scrotal wall thickening bilaterally, greater on the left. 3. Small subcentimeter cysts in the head of the epididymis bilaterally. Chest/Abdomen CTA 03/11/20 18:05 IMPRESSION: 1. Findings suspicious for acute pulmonary emboli within segmental and subsegmental pulmonary arteries supplying the left lower lobe. Some peripheral wedge-shaped opacities in this region likely represent pulmonary infarcts. There may be component of rounded atelectasis. 2. Findings suggestive of pulmonary edema with ground-glass attenuation and septal thickening is well as bilateral pleural effusions. 3. Main pulmonary is enlarged. Reflex of contrast into the IVC and hepatic veins. Findings could be due to underlying chronic pulmonary hypertension, though this could be exacerbated due to the acute PE. Assessment and Plan - Diagnosis (1) Pulmonary embolism and infarction Is this a current diagnosis for this admission?: Yes Plan: Presents with worsening shortness of breath Patient was on warfarin but difficult to confirm compliance. Changed from Eliquis due to financial burden of copay. INR was subtherapeutic on this presentation CTA chest: Showed acute PE in segmental and subsegmental arteries supplying the left lower lobe with possible infarction Currently is hemodynamically stable Continue on Lovenox to coumadin bridge. INR goal 2-3 (2) Congestive heart failure Qualifiers: Heart failure chronicity: acute on chronic Is this a current diagnosis for this admission?: Yes Plan: Acute on chronic systolic CHF exacerbation. CT of the chest showed signs of pulmonary edema and pulmonary hypertension with the left lower lobe PE BNP was elevated at 37,900. She also has bicarb of 41 BMP ABG done at the ED showed pH/PCO2/PO2 of 7.44/49/96 Scrotal ultrasound showed no evidence of torsion Echocardiogram shows LVEF less than 10%. Negative 3L fluid balance, though weight is unchanged. Continued home medication regiment of carvedilol, Hydralazine, and isosorbide. Continues on aspirin and statin therapy. Diuresing with IV furosemide Cardiac diet. Strict I&O's, daily weight, fluid restriction Cardiology has been consulted; discussed with Dr. Álvarez. He has started patient on Losartan. Continue telemetry monitoring (3) Acute kidney injury Is this a current diagnosis for this admission?: Yes Plan: Likely prerenal cardiorenal Cr trending down; 1.54-> 1.45-> 1.46-> 0.53 Unknown baseline; patient is possibly at baseline renal function as there has been little change with diuresis Continue diuresis with IV Lasix Continue monitoring renal function tests Renally dose medications and avoid nephrotoxic's (4) COPD (chronic obstructive pulmonary disease) Is this a current diagnosis for this admission?: Yes Plan: Currently not in acute exacerbation Continue DuoNeb as needed Continue supplemental oxygen as needed. No indications for antibiotics or steroid therapy at this time. (5) Elevated troponin Is this a current diagnosis for this admission?: Yes Plan: Patient denies any chest pain Troponin 0.072-> 0.74-> 0.86 Likely type II non-STEMI due to demand mismatch EKG showed no significant ST-T wave changes Continue aspirin and statin On telemetry monitoring Cardiology is now consulted. (6) Metabolic alkalosis Is this a current diagnosis for this admission?: Yes Plan: Stable' 41-> 39-> 35-> 38 ABG showed a pH of 7.44 with PCO2 of 49 Likely chronic compensation for respiratory acidosis (7) Poorly-controlled hypertension Is this a current diagnosis for this admission?: Yes Plan: Good blood pressures control. Patient's home medication regiment of carvedilol, hydralazine, isosorbide were continued Currently being diuresed with IV furosemide. Cardiology is consulted; per Dr. Gonzalez; has started patient on Losartan. Closely monitor vital signs (8) Obesity (BMI 30-39.9) Is this a current diagnosis for this admission?: Yes Plan: Lifestyle modification, dietary compliance, and weight loss encouraged. (9) Tobacco dependence Is this a current diagnosis for this admission?: Yes Plan: Counseled him about tobacco cessation and encouraged him to cut down on quit Offered nicotine patch while inpatient but patient declined (10) Epistaxis Is this a current diagnosis for this admission?: Yes Plan: Secondary to increased oxygen use likely resulting in drying his mucosal membranes. Patient is on full dose Lovenox and will require Coumadin therapy at discharge. Humidified oxygen. Saline nasal spray prn Continue Lovenox -> Coumadin bridge. If persists/worsens, may need to consult ENT to eval for potential intervention (i.e nasal tamponade/cautery) - Plan Summary Summary: Approaching pulmonary/cardiac readiness for discharge. INR not yet therapeutic. - Time Time Spent with patient: 25-34 minutes Medications reviewed and adjusted accordingly: Yes Anticipated Discharge Disposition: Home, Self Care Anticipated Discharge Timeframe: TBD
--- NOTE | 2020-03-15 19:13 | Progress Note ---
Provider Note Provider Note: CARDIOLOGY PROGRESS NOTE by Dr. Kia Gonzalez on 03/15/2020. SUBJECTIVE: The patient states his shortness of breath is much improved. His leg edema is also improved. He denies any chest pain or discomfort. There is no firing of the AICD. There is no arrhythmias seen on the monitor. There is n o hemoptysis. There is no TIA CVA symptoms. He has no orthopnea PND. His scrotal swelling also has decreased. PHYSICAL EXAMINATION: The patient moderately obese in no acute distress. Selected Entries 03/15/20 16:00 Temperature 97.6 F Temperature Oral Source Pulse Rate 71 Respiratory 24 H Rate Blood Pressure 155/90 H [Left Upper Arm ] Blood Pressure 111 Mean [Left Upper Arm] Blood Pressure Supine Position [Left Upper Arm] O2 Sat by Pulse 95 Oximetry Oxygen Delivery Nasal Cannula Method ( includes room air) Oxygen Flow 2 Rate HEAD: Is atraumatic normocephalic. EYES: Pupils equal round regular reactive light accommodation. Extraocular movements are normal. There is no conjunctival pallor. There is no scleral icterus. EYES: Pupils are equal round regular reactive to light accommodation. Extraocular movements are normal. There is no conjunctival pallor. There is no scleral icterus. NOSE: There is no deviated nasal septum. There is no inflammation nasal mucous membrane. MOUTH: Mucous membranes of the mouth are moist. Tongue is moist. There is no ulcers. There is no bleeding from the gums. THROAT: There is no redness of the oropharynx. There is no exudates. SKIN: There is no skin rashes there is no petechia or ecchymosis. His BP of 2+ edema in both legs. Neck: Is supple. There is JVD present. Carotids are equal there is no bruit. There is no lymphadenopathy. There is no goiter. There is no accessory muscle respiration use. Trachea central. LUNGS: There is diminished air entry prolonged expiration without any rhonchi or wheezing. There are no rales of CHF. HEART: S1-S2 is heard. There is no S3 gallop. There is no S4 gallop. Systolic murmur left sternal border and the apex there is no rub. ABDOMEN: Is soft. Nontender. There is no hepatosplenomegaly. Bowel sounds are well heard. There is no tender areas masses. EXTREMITIES: Femorals are diminished there is no femoral bruits. Leg pulses are difficult to palpate. There is 1- pedal edema bilaterally, with venous stasis dermatitis.. There is s mild crotal swelling present. There is no DVT or cellulitis. There is no calf tenderness. There is no cyanosis or clubbing. 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 PSYCHIATRIC: The patient judgment insight are intact his affect is normal. The patient's 24-hour total intake is 1400 mL. The patient's total 24-hour output is 1655 mL. Labs- All tests 24 hr 03/14/20 03/15/20 03/15/20 21:10 05:23 05:23 WBC 6.1 RBC 4.59 Hgb 14.2 Hct 44.0 MCV 96 MCH 31.0 MCHC 32.4 RDW 17.1 H Plt Count 211 PT INR APTT Sodium 137.6 Potassium 4.0 Chloride 96 L Carbon Dioxide 38 H Anion Gap 4 L BUN 38 H Creatinine 1.53 H Est GFR ( Amer) 57 L Est GFR (MDRD) Non-Af 47 L Glucose 81 POC Glucose 113 H Calcium 8.5 03/15/20 03/15/20 03/15/20 05:23 07:41 11:47 WBC RBC Hgb Hct MCV MCH MCHC RDW Plt Count PT 15.2 INR 1.18 APTT 40.6 H Sodium Potassium Chloride Carbon Dioxide Anion Gap BUN Creatinine Est GFR ( Amer) Est GFR (MDRD) Non-Af Glucose POC Glucose 118 H 125 H Calcium 03/15/20 17:07 WBC RBC Hgb Hct MCV MCH MCHC RDW Plt Count PT INR APTT Sodium Potassium Chloride Carbon Dioxide Anion Gap BUN Creatinine Est GFR ( Amer) Est GFR (MDRD) Non-Af Glucose POC Glucose 159 H Calcium Chest X-Ray 03/11/20 14:30 IMPRESSION: Left lower lobe pneumonia. Scrotum Ultrasound 03/11/20 14:31 IMPRESSION: 1, NO EVIDENCE OF TESTICULAR MASS OR TORSION. 2. Scrotal wall thickening bilaterally, greater on the left. 3. Small subcentimeter cysts in the head of the epididymis bilaterally. Chest/Abdomen CTA 03/11/20 18:05 IMPRESSION: 1. Findings suspicious for acute pulmonary emboli within segmental and subsegmental pulmonary arteries supplying the left lower lobe. Some peripheral wedge-shaped opacities in this region likely represent pulmonary infarcts. There may be component of rounded atelectasis. 2. Findings suggestive of pulmonary edema with ground-glass attenuation and septal thickening is well as bilateral pleural effusions. 3. Main pulmonary is enlarged. Reflex of contrast into the IVC and hepatic veins. Findings could be due to underlying chronic pulmonary hypertension, though this could be exacerbated due to the acute PE. IMPRESSION/RECOMMENDATION: 1. Acute on chronic systolic heart failure: Continue current medications, but will increase the patient's losartan.. The patient states his symptoms are improving. We will add an ARB. We will continue the patient's Coreg and hydralazine. Hydralazine will help as pulmonary hypertension as also would start. 2. Acute pulmonary emboli: Continue Lovenox, and warfarin. Once INR is 2.0 or greater then would recommend stopping Lovenox and continue the patient's warfarin. Patient's INR is subtherapeutic. Agree with increasing the patient's Coumadin dosage. 3. Severe pulmonary hypertension: This is a combination of left heart failure and the patient's COPD. Hydralazine should help. Will increase the patient's losartan to 50 mg p.o. every 12 hours. 4. COPD: Patient continues to smoke. There is no evidence of acute exacerbation of COPD. 5. Dilated cardiomyopathy with LV ejection fraction less than 10%. Continue beta-maggie and ARB and hydralazine. Continue IV Lasix for now. 6. Coronary artery disease history of myocardial infarction the patient denies any anginal symptoms. 7. Hypertension: Blood pressure is stable. 8. Diabetes mellitus. 9. RENAL insufficiency. Expect this to improve with treatment. Avoid nephrotoxic drugs. The patient's GFR is slightly improved at 47. Medications reviewed. Medical regimen management plan discussed with attending provider on the case. Medical decision making is of high complexity. 60 minutes spent as patient more than 50% time spent in direct patient care. Medical regimen and management plan discussed with the attending provider on the case. Will follow.
[2020-03-15 19:40] LABS: HEMATOCRIT 43.8 % (37.9-51.0); HEMOGLOBIN 14.2 g/dL (13.5-17.0); MEAN CORPUSCULAR HEMOGLOBIN 31.2 pg (27.0-33.4); MEAN CORPUSCULAR HGB CONC 32.5 g/dL (32.0-36.0); MEAN CORPUSCULAR VOLUME 96 fl (80-97); PLATELET COUNT 206 10^3/uL (150-450); RED BLOOD COUNT 4.56 10^6/uL (4.35-5.55); RED CELL DISTRIBUTION WIDTH 17.5 % (11.5-14.0); WHITE BLOOD COUNT 5.9 10^3/uL (4.0-10.5)
[2020-03-15] MEDS: WARFARIN SODIUM 7.5 MG TABLET PO SCH (22:24)
[2020-03-15 22:46] LABS: APPEARANCE,URINE CLEAR; BILIRUBIN,URINE NEGATIVE (NEGATIVE); COLOR,URINE YELLOW; GLUCOSE, URINE NEGATIVE (NEGATIVE); KETONES,URINE NEGATIVE (NEGATIVE); LEUKOCYTE ESTERASE,URINE NEGATIVE (NEGATIVE); NITRITE,URINE NEGATIVE (NEGATIVE); PROTEIN,URINE >=500 mg/dL (NEGATIVE); URINE SPECIFIC GRAVITY 1.014
[2020-03-16] MEDS: HYDRALAZINE HCL 25 MG TABLET PO SCH ×3 (06:03→21:25)
[2020-03-16 06:06] LABS: HEMOGLOBIN 13.9 g/dL (13.5-17.0); MEAN CORPUSCULAR HEMOGLOBIN 30.9 pg (27.0-33.4); MEAN CORPUSCULAR HGB CONC 32.3 g/dL (32.0-36.0); MEAN CORPUSCULAR VOLUME 96 fl (80-97); PLATELET COUNT 172 10^3/uL (150-450); RED CELL DISTRIBUTION WIDTH 17.2 % (11.5-14.0); WHITE BLOOD COUNT 6.4 10^3/uL (4.0-10.5)
[2020-03-16 06:24] LABS: INTERNATIONAL RATION (INR) 1.34; PROTHROMBIN TIME 16.7 SEC (11.4-15.4)
[2020-03-16 06:28] LABS: ANION GAP 9 (5-19); BLOOD UREA NITROGEN 36 mg/dL (7-20); CALCIUM 8.7 mg/dL (8.4-10.2); CARBON DIOXIDE 32 mmol/L (22-30); CHLORIDE 96 mmol/L (98-107); GLUCOSE 128 mg/dL (75-110); POTASSIUM 4.3 mmol/L (3.6-5.0)
[2020-03-16] MEDS: INSULIN REG, HUMAN 100 UNIT/ML 3 ML VIAL (PYX) SUBCUT SCH ×4 (08:10→21:47)
[2020-03-16] MEDS: HUM INSULIN NPH/REG INSULIN HM 100 UNIT/1 ML 3 ML SUBCUT SCH ×2 (08:17→17:15)
[2020-03-16] MEDS: SODIUM CHLORIDE NASAL SPRAY 44 ML NASL SCH ×4 (08:17→21:25)
[2020-03-16] MEDS: ASPIRIN 81 MG TABLET, CHEWABLE PO SCH (09:42)
[2020-03-16] MEDS: CARVEDILOL 12.5 MG TABLET PO SCH ×2 (09:42→21:25)
[2020-03-16] MEDS: FAMOTIDINE 20 MG TABLET PO SCH ×2 (09:42→21:24)
[2020-03-16] MEDS: ISOSORBIDE MONONITRATE 30 MG TAB.ER.24H PO SCH (09:42)
[2020-03-16] MEDS: LOSARTAN POTASSIUM 25 MG TABLET PO SCH ×2 (09:43→21:23)
[2020-03-16] MEDS: ENOXAPARIN SODIUM INJ 100 MG/1 ML DISP.SYRIN SUBCUT SCH ×4 (09:43→21:33)
[2020-03-16] MEDS: FUROSEMIDE INJ/PF 40 MG/4 ML SDV IV SCH ×2 (09:43→21:25)
--- NOTE | 2020-03-16 18:58 | Progress Note ---
Provider Note Provider Note: CARDIOLOGY PROGRESS NOTE by Dr. Kia Gonzalez on 03/16/2020. SUBJECTIVE: The patient states his shortness of breath is much improved. His leg edema is also improved. He denies any chest pain or discomfort. There is no firing of the AICD. There is no arrhythmias seen on the monitor. There is n o hemoptysis. There is no TIA CVA symptoms. He has no orthopnea PND. His scrotal swelling also has decreased. There is no anginal symptoms. The patient INR is 1.34. The patient is anxious to go home. PHYSICAL EXAMINATION: The patient moderately obese in no acute distress. Selected Entries 03/16/20 15:24 Temperature 98.7 F Temperature Oral Source Pulse Rate 74 Respiratory 18 Rate Blood Pressure 139/66 H Blood Pressure 90 Mean BP Location Right Arm BP Position Sitting O2 Sat by Pulse 94 Oximetry Oxygen Flow 2.00 Rate Oxygen Delivery Nasal Cannula Method HEAD: Is atraumatic normocephalic. EYES: Pupils equal round regular reactive light accommodation. Extraocular movements are normal. There is no conjunctival pallor. There is no scleral icterus. EYES: Pupils are equal round regular reactive to light accommodation. Extraocular movements are normal. There is no conjunctival pallor. There is no scleral icterus. NOSE: There is no deviated nasal septum. There is no inflammation nasal mucous membrane. MOUTH: Mucous membranes of the mouth are moist. Tongue is moist. There is no ulcers. There is no bleeding from the gums. THROAT: There is no redness of the oropharynx. There is no exudates. SKIN: There is no skin rashes there is no petechia or ecchymosis. His BP of 2+ edema in both legs. Neck: Is supple. There is JVD present. Carotids are equal there is no bruit. There is no lymphadenopathy. There is no goiter. There is no accessory muscle respiration use. Trachea central. LUNGS: There is diminished air entry prolonged expiration without any rhonchi or wheezing. There are no rales of CHF. HEART: S1-S2 is heard. There is no S3 gallop. There is no S4 gallop. Systolic murmur left sternal border and the apex there is no rub. ABDOMEN: Is soft. Nontender. There is no hepatosplenomegaly. Bowel sounds are well heard. There is no tender areas masses. EXTREMITIES: Femorals are diminished there is no femoral bruits. Leg pulses are difficult to palpate. There is 1- pedal edema bilaterally, with venous stasis dermatitis.. There is s mild crotal swelling present. There is no DVT or cellulitis. There is no calf tenderness. There is no cyanosis or clubbing. REMOTE CODERS: The patient is conscious awake alert oriented x3 with no focal deficits. PSYCHIATRIC: The patient judgment insight are intact his affect is normal. The patient's 24-hour total intake is 730 mL. The patient's total 24-hour output is 1885 mL. Labs- All tests 24 hr 03/15/20 03/15/20 03/15/20 19:21 21:14 22:24 WBC 5.9 RBC 4.56 Hgb 14.2 Hct 43.8 MCV 96 MCH 31.2 MCHC 32.5 RDW 17.5 H Plt Count 206 PT INR Sodium Potassium Chloride Carbon Dioxide Anion Gap BUN Creatinine Est GFR ( Amer) Est GFR (MDRD) Non-Af Glucose POC Glucose 131 H Calcium NT-Pro-B Natriuret Pep Urine Color YELLOW Urine Appearance CLEAR Urine pH 8.0 Ur Specific [place] 1.014 Urine Protein >=500 H Urine Glucose (UA) NEGATIVE Urine Ketones NEGATIVE Urine Blood NEGATIVE Urine Nitrite NEGATIVE Urine Bilirubin NEGATIVE Urine Urobilinogen 2.0 H Ur Leukocyte Esterase NEGATIVE Urine WBC (Auto) 1 U Hyaline Cast (Auto) 1 Squamous Epi Cells Auto 2 Urine Mucus (Auto) RARE Urine Ascorbic Acid NEGATIVE 03/16/20 03/16/20 03/16/20 05:35 05:35 05:35 WBC 6.4 RBC 4.50 Hgb 13.9 Hct 43.0 MCV 96 MCH 30.9 MCHC 32.3 RDW 17.2 H Plt Count 172 PT 16.7 H INR 1.34 Sodium 137.4 Potassium 4.3 Chloride 96 L Carbon Dioxide 32 H Anion Gap 9 BUN 36 H Creatinine 1.44 H Est GFR ( Amer) > 60 Est GFR (MDRD) Non-Af 51 L Glucose 128 H POC Glucose Calcium 8.7 NT-Pro-B Natriuret Pep Urine Color Urine Appearance Urine pH Ur Specific [place] Urine Protein Urine Glucose (UA) Urine Ketones Urine Blood Urine Nitrite Urine Bilirubin Urine Urobilinogen Ur Leukocyte Esterase Urine WBC (Auto) U Hyaline Cast (Auto) Squamous Epi Cells Auto Urine Mucus (Auto) Urine Ascorbic Acid 03/16/20 03/16/20 03/16/20 05:35 07:47 11:26 WBC RBC Hgb Hct MCV MCH MCHC RDW Plt Count PT INR Sodium Potassium Chloride Carbon Dioxide Anion Gap BUN Creatinine Est GFR ( Amer) Est GFR (MDRD) Non-Af Glucose POC Glucose 139 H 135 H Calcium NT-Pro-B Natriuret Pep 84017 H Urine Color Urine Appearance Urine pH Ur Specific [place] Urine Protein Urine Glucose (UA) Urine Ketones Urine Blood Urine Nitrite Urine Bilirubin Urine Urobilinogen Ur Leukocyte Esterase Urine WBC (Auto) U Hyaline Cast (Auto) Squamous Epi Cells Auto Urine Mucus (Auto) Urine Ascorbic Acid 03/16/20 15:22 WBC RBC Hgb Hct MCV MCH MCHC RDW Plt Count PT INR Sodium Potassium Chloride Carbon Dioxide Anion Gap BUN Creatinine Est GFR ( Amer) Est GFR (MDRD) Non-Af Glucose POC Glucose 240 H Calcium NT-Pro-B Natriuret Pep Urine Color Urine Appearance Urine pH Ur Specific [place] Urine Protein Urine Glucose (UA) Urine Ketones Urine Blood Urine Nitrite Urine Bilirubin Urine Urobilinogen Ur Leukocyte Esterase Urine WBC (Auto) U Hyaline Cast (Auto) Squamous Epi Cells Auto Urine Mucus (Auto) Urine Ascorbic Acid Chest X-Ray 03/11/20 14:30 IMPRESSION: Left lower lobe pneumonia. Scrotum Ultrasound 03/11/20 14:31 IMPRESSION: 1, NO EVIDENCE OF TESTICULAR MASS OR TORSION. 2. Scrotal wall thickening bilaterally, greater on the left. 3. Small subcentimeter cysts in the head of the epididymis bilaterally. Chest/Abdomen CTA 03/11/20 18:05 IMPRESSION: 1. Findings suspicious for acute pulmonary emboli within segmental and subsegmental pulmonary arteries supplying the left lower lobe. Some peripheral wedge-shaped opacities in this region likely represent pulmonary infarcts. There may be component of rounded atelectasis. 2. Findings suggestive of pulmonary edema with ground-glass attenuation and septal thickening is well as bilateral pleural effusions. 3. Main pulmonary is enlarged. Reflex of contrast into the IVC and hepatic veins. Findings could be due to underlying chronic pulmonary hypertension, though this could be exacerbated due to the acute PE. IMPRESSION/RECOMMENDATION: 1. Acute on chronic systolic heart failure: Continue current medications, but will increase the patient's losartan.. The patient states his symptoms are improving. We will add an ARB. We will continue the patient's Coreg and hydralazine. Hydralazine will help as pulmonary hypertension as also would start. 2. Acute pulmonary emboli: Continue Lovenox, and warfarin. Once INR is 2.0 or greater then would recommend stopping Lovenox and continue the patient's warfarin. Patient's INR is subtherapeutic. Agree with increasing the patient's Coumadin dosage. 3. Severe pulmonary hypertension: This is a combination of left heart failure and the patient's COPD. Hydralazine should help. Will increase the patient's losartan to 50 mg p.o. every 12 hours. 4. COPD: Patient continues to smoke. There is no evidence of acute exacerbation of COPD. 5. Dilated cardiomyopathy with LV ejection fraction less than 10%. Continue beta-maggie and ARB and hydralazine. Continue IV Lasix for now. 6. Coronary artery disease history of myocardial infarction the patient denies any anginal symptoms. 7. Hypertension: Blood pressure is stable. 8. Diabetes mellitus. 9. RENAL insufficiency. Expect this to improve with treatment. Avoid nephrotoxic drugs. The patient's GFR is slightly improved at 47. Medications reviewed. Medical regimen management plan discussed with attending provider on the case. Medical decision making is of high complexity. 60 minutes spent as patient more than 50% time spent in direct patient care. Medical regimen and management plan discussed with the attending provider on the case. Will follow.
--- NOTE | 2020-03-16 20:25 | PDOC PROGRESS REPORT ---
Subjective Date:: 03/16/20 Subjective:: The patient is a 59-year-old male with a past medical history of systolic CHF, COPD, chronic respiratory failure on home oxygen at 2 L/min, CAD, DM2, and hypertension who was admitted 03/11/2024 acute on chronic systolic CHF exacerbation secondary to acute pulmonary embolism with infarction. Seen on morning rounds. He was found lying in bed comfortably. He has 2 L nasal cannula in place at which is consistent with home O2 use. SPO2 90s. His breathing is at baseline. Continues to note improvement in bilateral lower extremity edema. Provides me with no other questions or concerns at this time. Discussed with nursing. Patient denied Lovenox injection due to discomfort from injection. Discussed with patient need to continue Lovenox/Coumadin bridge. Expressed understanding. Reason For Visit: CONGESTIVE HEART FAILURE,PULMONARY AMBOLISM Physical Exam Vital Signs: Temp Pulse Resp BP Pulse Ox 98.7 F 74 18 139/66 H 94 03/16/20 15:24 03/16/20 15:24 03/16/20 15:24 03/16/20 15:24 03/16/20 15:24 Intake & Output 03/15/20 03/16/20 03/17/20 06:59 06:59 06:59 Intake Total 9633 822 7949 Output Total 1655 1885 1600 Balance -255 -4982 -500 Weight 99.1 kg 95.5 kg Additional comments: General appearance: PRESENT: no acute distress, cooperative, morbidly obese, well-developed, well-nourished Head exam: PRESENT: atraumatic, normocephalic Eye exam: PRESENT: conjunctiva pink, EOMI, PERRLA. ABSENT: scleral icterus Mouth exam: PRESENT: moist, tongue midline Teeth exam: PRESENT: poor dentation with multiple teeth missing. Respiratory exam: PRESENT: clear to auscultation miguelangel, decreased breath sounds - poor inspiratory effort, symmetrical, unlabored. ABSENT: rales, rhonchi, wheeze s Cardiovascular exam: PRESENT: RRR, S1, S2. ABSENT: diastolic murmur, rubs Vascular exam: PRESENT: normal capillary refill Extremities exam: PRESENT: full ROM, +1 edema - pitting BLE. ABSENT: calf tenderness, clubbing, pedal edema Neurological exam: PRESENT: alert, awake, oriented to person, oriented to place, oriented to time, oriented to situation, CN II-XII grossly intact. ABSENT: motor sensory deficit Psychiatric exam: PRESENT: appropriate affect, normal mood. ABSENT: homicidal ideation, suicidal ideation Skin exam: PRESENT: dry, warm, other - Stasis dermatitis bilateral lower legs; L>R. no weaping present. ABSENT: cyanosis, rash Results Laboratory Results: 03/16/20 05:35 03/16/20 05:35 03/15/20 03/16/20 03/16/20 22:24 05:35 05:35 WBC 6.4 RBC 4.50 Hgb 13.9 Hct 43.0 MCV 96 MCH 30.9 MCHC 32.3 RDW 17.2 H Plt Count 172 Sodium 137.4 Potassium 4.3 Chloride 96 L Carbon Dioxide 32 H Anion Gap 9 BUN 36 H Creatinine 1.44 H Est GFR ( Amer) > 60 Glucose 128 H Calcium 8.7 Urine Color YELLOW Urine Appearance CLEAR Urine pH 8.0 Ur Specific [place] 1.014 Urine Protein >=500 H Urine Glucose (UA) NEGATIVE Urine Ketones NEGATIVE Urine Blood NEGATIVE Urine Nitrite NEGATIVE Ur Leukocyte Esterase NEGATIVE Urine WBC (Auto) 1 03/11/20 03/11/20 03/11/20 15:50 15:50 17:20 Creatine Kinase 132 CK-MB (CK-2) 5.52 H Troponin I 0.072 0.074 NT-Pro-B Natriuret Pep 17383 H 03/12/20 03/16/20 05:36 05:35 Creatine Kinase CK-MB (CK-2) Troponin I 0.086 NT-Pro-B Natriuret Pep 95273 H Impressions: Chest X-Ray 03/11/20 14:30 IMPRESSION: Left lower lobe pneumonia. Scrotum Ultrasound 03/11/20 14:31 IMPRESSION: 1, NO EVIDENCE OF TESTICULAR MASS OR TORSION. 2. Scrotal wall thickening bilaterally, greater on the left. 3. Small subcentimeter cysts in the head of the epididymis bilaterally. Chest/Abdomen CTA 03/11/20 18:05 IMPRESSION: 1. Findings suspicious for acute pulmonary emboli within segmental and subsegmental pulmonary arteries supplying the left lower lobe. Some claire pheral wedge-shaped opacities in this region likely represent pulmonary infarcts. There may be component of rounded atelectasis. 2. Findings suggestive of pulmonary edema with ground-glass attenuation and septal thickening is well as bilateral pleural effusions. 3. Main pulmonary is enlarged. Reflex of contrast into the IVC and hepatic veins. Findings could be due to underlying chronic pulmonary hypertension, though this could be exacerbated due to the acute PE. Assessment and Plan - Diagnosis (1) Pulmonary embolism and infarction Is this a current diagnosis for this admission?: Yes Plan: Worsening shortness of breath on initial presentation, though shortness of breath has essentially resolved at this time. CTA chest: Showed acute PE in segmental and subsegmental arteries supplying the left lower lobe with possible infarction Remains is hemodynamically stable - Historically on warfarin but difficult to confirm compliance. Changed from Eliquis due to financial burden of copay. - INR was subtherapeutic on this presentation Continue on Lovenox to coumadin bridge. - INR goal 2-3 - INR to a greater stop Lovenox and continue warfarin. - Continue warfarin 7.5 mg every night. (2) Congestive heart failure Qualifiers: Heart failure chronicity: acute on chronic Is this a current diagnosis for this admission?: Yes Plan: Acute on chronic systolic CHF exacerbation. - CT of the chest showed signs of pulmonary edema and pulmonary hypertension with the left lower lobe PE - BNP was elevated at 37,900. She also has bicarb of 41 BMP - ABG done at the ED showed pH/PCO2/PO2 of 7.44/49/96 - Scrotal ultrasound showed no evidence of torsion; scrotal edema with improvement - Echocardiogram shows LVEF less than 10%. Continue treatment with: - home medication regiment of carvedilol, Hydralazine, and isosorbide. - aspirin and statin therapy. - diuresing with IV furosemide (Overall negative net fluid balance.) Cardiology has been consulted; discussed with Dr. Álvarez. - Continue losartan at now increased dose Cardiac diet. Strict I&O's, daily weight, fluid restriction Continue telemetry monitoring (3) Acute kidney injury Is this a current diagnosis for this admission?: Yes Plan: Likely prerenal cardiorenal Cr trending down; 1.54-> 1.45-> 1.46-> 1.53 -> 1.44 Unknown baseline; patient is possibly at baseline renal function as there has been little change with diuresis - Continue diuresis with IV Lasix - Continue monitoring renal function tests - Renally dose medications and avoid nephrotoxic's (4) COPD (chronic obstructive pulmonary disease) Is this a current diagnosis for this admission?: Yes Plan: Currently not in acute exacerbation - Continue DuoNeb as needed - Continue supplemental oxygen as needed. - No indications for antibiotics or steroid therapy at this time. (5) Elevated troponin Is this a current diagnosis for this admission?: Yes Plan: Patient denies any chest pain - Troponin 0.072-> 0.74-> 0.86 - Likely type II non-STEMI due to demand mismatch - EKG showed no significant ST-T wave changes Continue aspirin and statin On telemetry monitoring Cardiology consulted, recommend durations appreciated, note reviewed in detail. (6) Metabolic alkalosis Is this a current diagnosis for this admission?: Yes Plan: Stable' 41-> 39-> 35-> 38 - ABG showed a pH of 7.44 with PCO2 of 49 - Likely chronic compensation for respiratory acidosis (7) Poorly-controlled hypertension Is this a current diagnosis for this admission?: Yes Plan: Good blood pressures control. - Patient's home medication regiment of carvedilol, hydralazine, isosorbide were continued - Currently being diuresed with IV furosemide. - Cardiology is consulted; per Dr. Gonzalez; has started patient on Losartan with increased dose today. - Closely monitor vital signs (8) Obesity (BMI 30-39.9) Is this a current diagnosis for this admission?: Yes Plan: Lifestyle modification, dietary compliance, and weight loss encouraged. (9) Tobacco dependence Is this a current diagnosis for this admission?: Yes Plan: Counseled him about tobacco cessation and encouraged him to cut down on quit Offered nicotine patch while inpatient but patient declined (10) Epistaxis Is this a current diagnosis for this admission?: Yes Plan: Resolved with Humidified oxygen. Saline nasal spray prn. - Secondary to increased oxygen use likely resulting in drying his mucosal membranes. - Patient is on full dose Lovenox and will require Coumadin therapy at discharge. - Continue Lovenox -> Coumadin bridge. - Plan Summary Summary: Approaching pulmonary/cardiac readiness for discharge. INR not yet therapeutic. Stable for Dc once INR therapeutic. - Time Time Spent with patient: 35 or more minutes Smoking Cessation Education: 3 to 10 minutes Medications reviewed and adjusted accordingly: Yes Anticipated Discharge Disposition: Home, Self Care Anticipated Discharge Timeframe: TBD
[2020-03-16] MEDS: WARFARIN SODIUM 7.5 MG TABLET PO SCH (21:32)
[2020-03-17 05:05] LABS: APPEARANCE,URINE CLEAR; BILIRUBIN,URINE NEGATIVE (NEGATIVE); COLOR,URINE YELLOW; GLUCOSE, URINE NEGATIVE (NEGATIVE); KETONES,URINE NEGATIVE (NEGATIVE); LEUKOCYTE ESTERASE,URINE NEGATIVE (NEGATIVE); NITRITE,URINE POSITIVE (NEGATIVE); PROTEIN,URINE 100 mg/dL (NEGATIVE); URINE SPECIFIC GRAVITY 1.012; UROBILINOGEN,URINE NEGATIVE mg/dL (<2.0)
[2020-03-17] MEDS: HYDRALAZINE HCL 25 MG TABLET PO SCH ×2 (05:14→16:35)
[2020-03-17 07:16] LABS: INTERNATIONAL RATION (INR) 1.32; PROTHROMBIN TIME 16.6 SEC (11.4-15.4)
[2020-03-17] MEDS: SODIUM CHLORIDE NASAL SPRAY 44 ML NASL SCH ×3 (08:13→16:36)
[2020-03-17] MEDS: INSULIN REG, HUMAN 100 UNIT/ML 3 ML VIAL (PYX) SUBCUT SCH ×3 (12:56→16:34)
[2020-03-17] MEDS: HUM INSULIN NPH/REG INSULIN HM 100 UNIT/1 ML 3 ML SUBCUT SCH ×2 (12:57→16:36)
[2020-03-17] MEDS: FAMOTIDINE 20 MG TABLET PO SCH (12:58)
[2020-03-17] MEDS: LOSARTAN POTASSIUM 25 MG TABLET PO SCH (12:58)
[2020-03-17] MEDS: ASPIRIN 81 MG TABLET, CHEWABLE PO SCH (12:58)
[2020-03-17] MEDS: ISOSORBIDE MONONITRATE 30 MG TAB.ER.24H PO SCH (12:59)
[2020-03-17] MEDS: CARVEDILOL 12.5 MG TABLET PO SCH (12:59)
[2020-03-17] MEDS: FUROSEMIDE INJ/PF 40 MG/4 ML SDV IV SCH (13:00)
[2020-03-17] MEDS: ENOXAPARIN SODIUM INJ 100 MG/1 ML DISP.SYRIN SUBCUT SCH (13:13)
[2020-03-17] MEDS: IPRATROPIUM/ALBUTEROL 0.5-2.5 MG/3 ML AMPUL NEB PRN (14:56)
[2020-03-17 18:43] VITALS: BP 129/58
--- NOTE | 2020-03-17 19:06 | PDOC DISCHARGE SUMMARY ---
Impression - Admit/DC Date/PCP Admission Date/Primary Care Provider: 03/11/20 21:30 Discharge Date: 03/17/20 - Discharge Diagnosis (1) Pulmonary embolism and infarction Is this a current diagnosis for this admission?: Yes (2) Congestive heart failure Is this a current diagnosis for this admission?: Yes (3) Acute kidney injury Is this a current diagnosis for this admission?: Yes (4) COPD (chronic obstructive pulmonary disease) Is this a current diagnosis for this admission?: Yes (5) Elevated troponin Is this a current diagnosis for this admission?: Yes (6) Metabolic alkalosis Is this a current diagnosis for this admission?: Yes (7) Poorly-controlled hypertension Is this a current diagnosis for this admission?: Yes (8) Obesity (BMI 30-39.9) Is this a current diagnosis for this admission?: Yes (9) Tobacco dependence Is this a current diagnosis for this admission?: Yes (10) Epistaxis Is this a current diagnosis for this admission?: Yes (11) Lesion of mouth Is this a current diagnosis for this admission?: Yes - Additional Information Resuscitation Status: Full Code Discharge Diet: Cardiac, Diabetic Discharge Activity: Activity As Tolerated, Balance Activity w/Rest, Weigh Daily Prescriptions: Hydralazine HCl [Apresoline 25 mg Tablet] 25 mg PO Q8 #30 tablet Carvedilol [Coreg 12.5 mg Tablet] 25 mg PO Q12 #30 tablet Losartan Potassium [Cozaar 25 mg Tablet] 50 mg PO Q12 #30 tablet Isosorbide Mononitrate [Imdur 30 mg Tablet.er] 30 mg PO DAILY #30 tab.er.24h Furosemide [Lasix 20 mg Tablet] 20 mg PO BID #60 tablet Home Medications: Carvedilol [Coreg 12.5 mg Tablet] 25 mg PO Q12 #30 tablet 03/17/20 Furosemide [Lasix 20 mg Tablet] 20 mg PO BID #60 tablet 03/17/20 Hydralazine HCl [Apresoline 25 mg Tablet] 25 mg PO Q8 #30 tablet 03/17/20 Isosorbide Mononitrate [Imdur 30 mg Tablet.er] 30 mg PO DAILY #30 tab.er.24h 03/17/20 Losartan Potassium [Cozaar 25 mg Tablet] 50 mg PO Q12 #30 tablet 03/17/20 History of Present Illiness History of Present Illness: As per admitting HPI on 03/11/2020 "HARRIET PINEDA is a 59 year old male with a history of heart failure, COPD on 2 L intranasal oxygen, CAD, type 2 diabetes and hypertension presents to the ED with 2 weeks duration of pr ogressively worsening shortness of breath and generalized body swelling which started from the lower extremities and gradually increased to involve his scrotum and abdomen. He also endorses associated orthopnea. Patient patient is a difficult and unreliable historian and additional history was obtained from ED signout. Patient lives in [place] and moved here 2 weeks back to see his son. He states that he is compliant with all his medications. A picture of his medication list sent by his son to the ED physician shows that he is on medications for heart failure with reduced ejection fraction and also on anticoagulation with warfarin but patient unable to give a clear answer why he is on anticoagulation. He states that he was started initially on Eliquis about 8 to 10 months back and was later switched to warfarin for unclear reasons. He reports that he has no cough, chest pain, fever, chills, palpitation, dizziness, change in his vision, weakness of extremities, aphasia or difficulty of swallowing. He denies any change in his bowel or urinary habits." Hospital Course Hospital Course: Pulmonary embolism and infarction Worsening shortness of breath on initial presentation, though shortness of breath has essentially resolved at this time. CTA chest: Showed acute PE in segmental and subsegmental arteries supplying the left lower lobe with possible infarction Remains is hemodynamically stable - Historically on warfarin but difficult to confirm compliance. Changed from Eliquis due to financial burden of copay. - INR was subtherapeutic on this presentation Initiate plan was to complet Lovenox to coumadin bridge with INR bridge 2-3. - Patient denies Lovenox therapy x2 days due to pain and associated bruising o n abdominal wall. Dr. Álvarez, cardiology, on board with patient therapy. Was able to provide patient with 30-day supply of Pradaxa 150 mg twice daily. With plan for patient to receive continued anticoagulant therapy from primary care provider down in [place]. Plans to head back to [place] tomorrow. The appeal to treating patient with Warfarin is the cost, though patient appears to be non-compliant, thus Warfarin therapy difficult. Given patient's history of Eliquis use in the past it does not appear patient qualifies for Eliquis 30 day coupon at this time. None the less provided patient with Eliquis coupons in the event his PCP in [place] decides to treat him with Eliquis in the future, he at least has the coupons available. I spent a rather extensive amount of time discussing the importance of anticoagulant therapy with the patient in detail. He is made aware of risks of future blood clots, stroke, and even if he is non-compliant with medication. Congestive heart failure Acute on chronic systolic CHF exacerbation. - CT of the chest showed signs of pulmonary edema and pulmonary hypertension with the left lower lobe PE - BNP was elevated at 37,900. She also has bicarb of 41 BMP - ABG done at the ED showed pH/PCO2/PO2 of 7.44/49/96 - Scrotal ultrasound showed no evidence of torsion; scrotal edema with improvement - Echocardiogram shows LVEF less than 10%. Continue treatment with: - home medication regiment of carvedilol, Hydralazine, and isosorbide. - aspirin and statin therapy. - diuresing with IV furosemide, transitioned to p.o. lasix therapy as outpatient - Continue losartan at now increased dose Cardiac diet. Strict I&O's, daily weight, fluid restriction Continue telemetry monitoring Acute kidney injury Likely prerenal cardiorenal Cr trending down; 1.54-> 1.45-> 1.46-> 1.53 -> 1.44 Unknown baseline; patient is possibly at baseline renal function as there has been little change with diuresis - Continue diuresis with IV Lasix -> P.o. lasix - Continue monitoring renal function tests - Renally dose medications and avoid nephrotoxic's Elevated troponin Patient denies any chest pain - Troponin 0.072-> 0.74-> 0.86 - Likely type II non-STEMI due to demand mismatch - EKG showed no significant ST-T wave changes Continue aspirin and statin Metabolic alkalosis Stable' 41-> 39-> 35-> 38 - ABG showed a pH of 7.44 with PCO2 of 49 - Likely chronic compensation for respiratory acidosis Poorly-controlled hypertension Good blood pressures control prior to discharge. - Patient's home medication regiment of carvedilol, hydralazine, isosorbide were continued - Currently being diuresed with IV furosemide - > p.o. lasix. - Cardiology is consulted; per Dr. Gonzalez; has started patient on Losartan with increased dose today. - Closely monitor vital signs Epistaxis Resolved with Humidified oxygen. Saline nasal spray prn. - Secondary to combination of supplemental O2 and blood thinners. Lesion in mouth Patient with lesions right denture, appears chronic. Does not appear to be infected, without edema, erythema, or warmth. Base appears to be bleeding, though hard to tell. This is non-tender. patient with poor dentition. No abx required today but I do believe patient needs a work up with dentist. Patient made aware of my concerns. He is not followed by dentist at home in [place], but tells me that he plans to go to one when he gets back. Physical Exam Vital Signs: Temp Pulse Resp BP Pulse Ox 97.8 F 69 18 129/58 H 93 03/17/20 17:07 03/17/20 17:07 03/17/20 17:07 03/17/20 17:07 03/17/20 17:07 Intake & Output 03/16/20 03/17/20 03/18/20 06:59 06:59 06:59 Intake Total 730 1100 480 Output Total 1885 2150 Balance -1155 -1050 480 Weight 95.5 kg 95.6 kg Additional comments: General appearance: PRESENT: no acute distress, cooperative, morbidly obese, well-developed, well-nourished Mouth exam: PRESENT: There is a lesion right upper dentures, brown in color, soft to the touch, non-tender, base appears to be bleeding, approximately 8cm in dm. Without associated edema, erythema or warmth. Appears chronic in nature. Teeth exam: PRESENT: poor dentation with multiple teeth missing. Respiratory exam: PRESENT: clear to auscultation miguelangel, decreased breath sounds - poor inspiratory effort, symmetrical, unlabored. ABSENT: rales, rhonchi, wheezes Cardiovascular exam: PRESENT: RRR, S1, S2. ABSENT: diastolic murmur, rubs Vascular exam: PRESENT: normal capillary refill Extremities exam: PRESENT: full ROM, +1 edema - pitting BLE. ABSENT: calf tenderness, clubbing, pedal edema Neurological exam: PRESENT: alert, awake, oriented to person, oriented to place, oriented to time, oriented to situation, CN II-XII grossly intact. ABSENT: motor sensory deficit Psychiatric exam: PRESENT: appropriate affect, normal mood. ABSENT: homicidal ideation, suicidal ideation Skin exam: PRESENT: dry, warm, other - Stasis dermatitis bilateral lower legs; L>R. no weaping present. Results Laboratory Results: WBC 6.4 10^3/uL (4.0-10.5) 03/16/20 05:35 RBC 4.50 10^6/uL (4.35-5.55) 03/16/20 05:35 Hgb 13.9 g/dL (13.5-17.0) 03/16/20 05:35 Hct 43.0 % (37.9-51.0) 03/16/20 05:35 MCV 96 fl (80-97) 03/16/20 05:35 MCH 30.9 pg (27.0-33.4) 03/16/20 05:35 MCHC 32.3 g/dL (32.0-36.0) 03/16/20 05:35 RDW 17.2 % (11.5-14.0) H 03/16/20 05:35 Plt Count 172 10^3/uL (150-450) 03/16/20 05:35 Lymph % (Auto) 11.0 % (13-45) L 03/11/20 15:50 [place] % (Auto) 9.2 % (3-13) 03/11/20 15:50 Eos % (Auto) 2.0 % (0-6) 03/11/20 15:50 Baso % (Auto) 1.4 % (0-2) 03/11/20 15:50 Absolute Neuts (auto) 6.2 10^3/uL (1.7-8.2) 03/11/20 15:50 Absolute Lymphs (auto) 0.9 10^3/uL (0.5-4.7) 03/11/20 15:50 Absolute Monos (auto) 0.8 10^3/uL (0.1-1.4) 03/11/20 15:50 Absolute Eos (auto) 0.2 10^3/uL (0.0-0.6) 03/11/20 15:50 Absolute Basos (auto) 0.1 10^3/uL (0.0-0.2) 03/11/20 15:50 Seg Neutrophils % 76.4 % (42-78) 03/11/20 15:50 PT 16.6 SEC (11.4-15.4) H 03/17/20 06:45 INR 1.32 03/17/20 06:45 APTT 40.6 SEC (23.5-35.8) H 03/15/20 05:23 Carbonic Acid 1.47 mmol/L (1.05-1.35) H 03/11/20 20:15 HCO3/H2CO3 Ratio 22:1 03/11/20 20:15 ABG pH 7.44 (7.35-7.45) 03/11/20 20:15 ABG pCO2 49.0 mmHg (35-45) H 03/11/20 20:15 ABG pO2 76.5 mmHg (80-100) L 03/11/20 20:15 ABG HCO3 32.8 mmol/L (20-24) H 03/11/20 20:15 ABG Total CO2 34.3 mmol/L (23-27) H 03/11/20 20:15 ABG O2 Saturation 95.6 % (94-98) 03/11/20 20:15 ABG Base Excess 7.0 mmol/L 03/11/20 20:15 FiO2 3L 03/11/20 20:15 Sodium 137.4 mmol/L (137-145) 03/16/20 05:35 Potassium 4.3 mmol/L (3.6-5.0) 03/16/20 05:35 Chloride 96 mmol/L (98-107) L 03/16/20 05:35 Carbon Dioxide 32 mmol/L (22-30) H 03/16/20 05:35 Anion Gap 9 (5-19) 03/16/20 05:35 BUN 36 mg/dL (7-20) H 03/16/20 05:35 Creatinine 1.44 mg/dL (0.52-1.25) H 03/16/20 05:35 Est GFR ( Amer) > 60 (>60) 03/16/20 05:35 Est GFR (MDRD) Non-Af 51 (>60) L 03/16/20 05:35 Glucose 128 mg/dL (75-110) H 03/16/20 05:35 POC Glucose 175 mg/dL (70-110) H 03/17/20 11:35 Hemoglobin A1c % 8.8 % (4.7-6.0) H 03/12/20 05:36 Calcium 8.7 mg/dL (8.4-10.2) 03/16/20 05:35 Total Bilirubin 1.6 mg/dL (0.2-1.3) H 03/11/20 15:50 Direct Bilirubin 0.3 mg/dL (0.0-0.4) 03/11/20 15:50 Neonat Total Bilirubin Not Reportable 03/11/20 15:50 Neonat Direct Bilirubin Not Reportable 03/11/20 15:50 Neonat Indirect Bili Not Reportable 03/11/20 15:50 AST 26 U/L (17-59) 03/11/20 15:50 ALT 13 U/L (<50) 03/11/20 15:50 Alkaline Phosphatase 103 U/L (38-126) 03/11/20 15:50 Creatine Kinase 132 U/L (55-170) 03/11/20 15:50 CK-MB (CK-2) 5.52 ng/mL (<4.55) H 03/11/20 15:50 Troponin I 0.086 ng/mL 03/12/20 05:36 NT-Pro-B Natriuret Pep 52874 pg/mL (<125) H 03/16/20 05:35 Total Protein 6.6 g/dL (6.3-8.2) 03/11/20 15:50 Albumin 3.4 g/dL (3.5-5.0) L 03/11/20 15:50 Lipase 68.7 U/L (23-300) 03/11/20 15:50 Urine Color YELLOW 03/17/20 04:42 Urine Appearance CLEAR 03/17/20 04:42 Urine pH 7.0 (5.0-9.0) 03/17/20 04:42 Ur Specific Ages [place] 1.012 03/17/20 04:42 Urine Protein 100 mg/dL (NEGATIVE) H 03/17/20 04:42 Urine Glucose (UA) NEGATIVE mg/dL (NEGATIVE) 03/17/20 04:42 Urine Ketones NEGATIVE mg/dL (NEGATIVE) 03/17/20 04:42 Urine Blood NEGATIVE (NEGATIVE) 03/17/20 04:42 Urine Nitrite POSITIVE (NEGATIVE) H 03/17/20 04:42 Urine Bilirubin NEGATIVE (NEGATIVE) 03/17/20 04:42 Urine Urobilinogen NEGATIVE mg/dL (<2.0) 03/17/20 04:42 Ur Leukocyte Esterase NEGATIVE (NEGATIVE) 03/17/20 04:42 Urine WBC (Auto) 0 /HPF 03/17/20 04:42 Urine RBC (Auto) 0 /HPF 03/17/20 04:42 U Hyaline Cast (Auto) 1 /LPF 03/15/20 22:24 Urine Bacteria (Auto) TRACE /HPF 03/12/20 22:23 Squamous Epi Cells Auto 1 /HPF 03/17/20 04:42 Urine Mucus (Auto) RARE /LPF 03/17/20 04:42 Urine Ascorbic Acid NEGATIVE (NEGATIVE) 03/17/20 04:42 03/11/20 03/11/20 03/12/20 15:50 17:20 05:36 CK-MB (CK-2) 5.52 H Troponin I 0.072 0.074 0.086 NT-Pro-B Natriuret Pep 22178 H 03/16/20 05:35 CK-MB (CK-2) Troponin I NT-Pro-B Natriuret Pep 24531 H Impressions: Chest X-Ray 03/11/20 14:30 IMPRESSION: Left lower lobe pneumonia. Scrotum Ultrasound 03/11/20 14:31 IMPRESSION: 1, NO EVIDENCE OF TESTICULAR MASS OR TORSION. 2. Scrotal wall thickening bilaterally, greater on the left. 3. Small subcentimeter cysts in the head of the epididymis bilaterally. Chest/Abdomen CTA 03/11/20 18:05 IMPRESSION: 1. Findings suspicious for acute pulmonary emboli within segmental and subsegmental pulmonary arteries supplying the left lower lobe. Some peripheral wedge-shaped opacities in this region likely represent pulmonary infarcts. There may be component of rounded atelectasis. 2. Findings suggestive of pulmonary edema with ground-glass attenuation and septal thickening is well as bilateral pleural effusions. 3. Main pulmonary is enlarged. Reflex of contrast into the IVC and hepatic veins. Findings could be due to underlying chronic pulmonary hypertension, though this could be exacerbated due to the acute PE. Plan Plan of Treatment: (1) Pulmonary embolism - This requires that you were treated with a blood thinner. Dr. Álvarez has provided you with 30 days worth of samples for Pradaxa (a blood thinner). Take 150 mg Pradaxa by mouth twice daily This is only a 30-day supply it is very important that you follow-up with your primary care provider to obtain further prescription and supply of this medication. Refusal to take this medication can result in recurrent blood clots, stroke, and even . For future use I have provided you with Eliquis coupons (a different type of blood thinner). (2) Congestive heart failure -we continued you on your carvedilol, hydralazine and Isosorbide medications at home dose. This Dr. Álvarez started you on losartan 50 mg by mouth every 12 hours. Continue 20 mg Lasix (fluid pill or diuretic) take this twice daily by mouth. (3) Lesion in mouth -follow up with dentist. Time Spent: Greater than 30 Minutes Stroke Is this a Stroke Patient?: No Acute Heart Failure Is this a Heart Failure Patient?: Yes Documentation of LVEF assessment?: Yes LVEF: LVEF Less Than or Equal to 35% Anticoagulant Therapy: Yes Discharged on Evidence-Based Beta Blockers: Yes Discharged on ARNI?: No-Document Contraindications Reason(s) not discharged on ARNI: Not previously tolerating ACEI or ARB Discharged on ARB?: Yes Discharged on ACEI?: N/A Discharged on ARNI For LVEF <35%, discharged on Aldosterone Antagonist?: Yes Follow-up Appointment scheduled within 7 days?: Yes
--- NOTE | 2020-03-17 21:39 | Progress Note ---
Provider Note Provider Note: CARDIOLOGY PROGRESS NOTE by Dr. Kia Gonzalez on 03/17/2020. SUBJECTIVE: The patient states his shortness of breath is much improved. His leg edema is also improved. He denies any chest pain or discomfort. There is no firing of the AICD. There is no arrhythmias seen on the monitor. There is n o hemoptysis. There is no TIA CVA symptoms. He has no orthopnea PND. His scrotal swelling also has decreased. There is no anginal symptoms. The patient's INR is dropped to 1.32.. The patient is anxious to go home. He refused to take his Lovenox shot today stating that it is very painful. He states his ride who drives him back to [place] is coming today and is imperative that he gets out. Hence I got a 30-day sample of Pradaxa 150 mg p.o. twice daily. Patient instructed to take it and swallow the capsule as a whole and not to by the capsule. As soon as he reaches [place] the patient has been instructed to contact his community services officer for future anticoagulation therapy. The patient promises that he would do so. PHYSICAL EXAMINATION: The patient moderately obese in no acute distress. Selected Entries 03/17/20 03/17/20 03/17/20 14:56 16:42 17:07 Temperature 97.4 F 97.8 F Temperature Oral Source Pulse Rate 69 69 Respiratory 20 18 Rate Blood Pressure 129/58 H Blood Pressure 141/66 H [Left Upper Arm ] Blood Pressure 81 Mean BP Location Right Arm BP Position Prone O2 Sat by Pulse 100 97 93 Oximetry Oxygen Flow 3 3.00 Rate HEAD: Is atraumatic normocephalic. EYES: Pupils equal round regular reactive light accommodation. Extraocular movements are normal. There is no conjunctiva l pallor. There is no scleral icterus. EYES: Pupils are equal round regular reactive to light accommodation. Extraocular movements are normal. There is no conjunctival pallor. There is no scleral icterus. NOSE: There is no deviated nasal septum. There is no inflammation nasal mucous membrane. MOUTH: Mucous membranes of the mouth are moist. Tongue is moist. There is no ulcers. There is no bleeding from the gums. THROAT: There is no redness of the oropharynx. There is no exudates. SKIN: There is no skin rashes there is no petechia or ecchymosis. His BP of 2+ edema in both legs. Neck: Is supple. There is JVD present. Carotids are equal there is no bruit. There is no lymphadenopathy. There is no goiter. There is no accessory muscle respiration use. Trachea central. LUNGS: There is diminished air entry prolonged expiration without any rhonchi or wheezing. There are no rales of CHF. HEART: S1-S2 is heard. There is no S3 gallop. There is no S4 gallop. Systolic murmur left sternal border and the apex there is no rub. ABDOMEN: Is soft. Nontender. There is no hepatosplenomegaly. Bowel sounds are well heard. There is no tender areas masses. EXTREMITIES: Femorals are diminished there is no femoral bruits. Leg pulses are difficult to palpate. There is 1- pedal edema bilaterally, with venous stasis dermatitis.. There is s mild crotal swelling present. There is no DVT or cellulitis. There is no calf tenderness. There is no cyanosis or clubbing. OCCUPATIONAL THERAPY ASST: The patient is conscious awake alert oriented x3 with no focal deficits. PSYCHIATRIC: The patient judgment insight are intact his affect is normal. Labs- Entire Visit 03/11/20 03/11/20 03/11/20 15:50 15:50 15:50 WBC 8.2 RBC 5.73 H Hgb 17.9 H Hct 55.5 H MCV 97 MCH 31.3 MCHC 32.3 RDW 17.4 H Plt Count 332 Lymph % (Auto) 11.0 L [place] % (Auto) 9.2 Eos % (Auto) 2.0 Baso % (Auto) 1.4 Absolute Neuts (auto) 6.2 Absolute Lymphs (auto) 0.9 Absolute Monos (auto) 0.8 Absolute Eos (auto) 0.2 Absolute Basos (auto) 0.1 Seg Neutrophils % 76.4 PT INR APTT Carbonic Acid HCO3/H2CO3 Ratio ABG pH ABG pCO2 ABG pO2 ABG HCO3 ABG Total CO2 ABG O2 Saturation ABG Base Excess FiO2 Sodium 138.0 Potassium 4.1 Chloride 94 L Carbon Dioxide 41 H* Anion Gap 3 L BUN 35 H Creatinine 1.54 H Est GFR ( Amer) 57 L Est GFR (MDRD) Non-Af 47 L Glucose 214 H POC Glucose Hemoglobin A1c % Calcium 9.2 Total Bilirubin 1.6 H Direct Bilirubin 0.3 Neonat Total Bilirubin Not Reportable Neonat Direct Bilirubin Not Reportable Neonat Indirect Bili Not Reportable AST 26 ALT 13 Alkaline Phosphatase 103 Creatine Kinase 132 CK-MB (CK-2) 5.52 H Troponin I 0.072 NT-Pro-B Natriuret Pep 56163 H Total Protein 6.6 Albumin 3.4 L Lipase 68.7 Urine Color Urine Appearance Urine pH Ur Specific [place] Urine Protein Urine Glucose (UA) Urine Ketones Urine Blood Urine Nitrite Urine Bilirubin Urine Urobilinogen Ur Leukocyte Esterase Urine WBC (Auto) Urine RBC (Auto) U Hyaline Cast (Auto) Urine Bacteria (Auto) Squamous Epi Cells Auto Urine Mucus (Auto) Urine Ascorbic Acid 03/11/20 03/11/20 03/11/20 15:50 17:20 20:15 WBC RBC Hgb Hct MCV MCH MCHC RDW Plt Count Lymph % (Auto) [place] % (Auto) Eos % (Auto) Baso % (Auto) Absolute Neuts (auto) Absolute Lymphs (auto) Absolute Monos (auto) Absolute Eos (auto) Absolute Basos (auto) Seg Neutrophils % PT 16.5 H INR 1.31 APTT Carbonic Acid 1.47 H HCO3/H2CO3 Ratio 22:1 ABG pH 7.44 ABG pCO2 49.0 H ABG pO2 76.5 L ABG HCO3 32.8 H ABG Total CO2 34.3 H ABG O2 Saturation 95.6 ABG Base Excess 7.0 FiO2 3L Sodium Potassium Chloride Carbon Dioxide Anion Gap BUN Creatinine Est GFR ( Amer) Est GFR (MDRD) Non-Af Glucose POC Glucose Hemoglobin A1c % Calcium Total Bilirubin Direct Bilirubin Neonat Total Bilirubin Neonat Direct Bilirubin Neonat Indirect Bili AST ALT Alkaline Phosphatase Creatine Kinase CK-MB (CK-2) Troponin I 0.074 NT-Pro-B Natriuret Pep Total Protein Albumin Lipase Urine Color Urine Appearance Urine pH Ur Specific [place] Urine Protein Urine Glucose (UA) Urine Ketones Urine Blood Urine Nitrite Urine Bilirubin Urine Urobilinogen Ur Leukocyte Esterase Urine WBC (Auto) Urine RBC (Auto) U Hyaline Cast (Auto) Urine Bacteria (Auto) Squamous Epi Cells Auto Urine Mucus (Auto) Urine Ascorbic Acid 03/11/20 03/12/20 03/12/20 22:25 05:36 05:36 WBC 6.7 RBC 5.10 Hgb 15.7 D Hct 49.0 MCV 96 MCH 30.7 MCHC 32.0 RDW 17.5 H Plt Count 243 Lymph % (Auto) [place] % (Auto) Eos % (Auto) Baso % (Auto) Absolute Neuts (auto) Absolute Lymphs (auto) Absolute Monos (auto) Absolute Eos (auto) Absolute Basos (auto) Seg Neutrophils % PT INR APTT Carbonic Acid HCO3/H2CO3 Ratio ABG pH ABG pCO2 ABG pO2 ABG HCO3 ABG Total CO2 ABG O2 Saturation ABG Base Excess FiO2 Sodium 137.2 Potassium 4.1 Chloride 95 L Carbon Dioxide 39 H Anion Gap 3 L BUN 34 H Creatinine 1.45 H Est GFR ( Amer) > 60 Est GFR (MDRD) Non-Af 50 L Glucose 158 H POC Glucose 223 H Hemoglobin A1c % Calcium 8.9 Total Bilirubin Direct Bilirubin Neonat Total Bilirubin Neonat Direct Bilirubin Neonat Indirect Bili AST ALT Alkaline Phosphatase Creatine Kinase CK-MB (CK-2) Troponin I NT-Pro-B Natriuret Pep Total Protein Albumin Lipase Urine Color Urine Appearance Urine pH Ur Specific [place] Urine Protein Urine Glucose (UA) Urine Ketones Urine Blood Urine Nitrite Urine Bilirubin Urine Urobilinogen Ur Leukocyte Esterase Urine WBC (Auto) Urine RBC (Auto) U Hyaline Cast (Auto) Urine Bacteria (Auto) Squamous Epi Cells Auto Urine Mucus (Auto) Urine Ascorbic Acid 03/12/20 03/12/20 03/12/20 05:36 05:36 06:20 WBC RBC Hgb Hct MCV MCH MCHC RDW Plt Count Lymph % (Auto) [place] % (Auto) Eos % (Auto) Baso % (Auto) Absolute Neuts (auto) Absolute Lymphs (auto) Absolute Monos (auto) Absolute Eos (auto) Absolute Basos (auto) Seg Neutrophils % PT INR APTT Carbonic Acid HCO3/H2CO3 Ratio ABG pH ABG pCO2 ABG pO2 ABG HCO3 ABG Total CO2 ABG O2 Saturation ABG Base Excess FiO2 Sodium Potassium Chloride Carbon Dioxide Anion Gap BUN Creatinine Est GFR ( Amer) Est GFR (MDRD) Non-Af Glucose POC Glucose Hemoglobin A1c % 8.8 H Calcium Total Bilirubin Direct Bilirubin Neonat Total Bilirubin Neonat Direct Bilirubin Neonat Indirect Bili AST ALT Alkaline Phosphatase Creatine Kinase CK-MB (CK-2) Troponin I 0.086 NT-Pro-B Natriuret Pep Total Protein Albumin Lipase Urine Color YELLOW Urine Appearance CLEAR Urine pH 6.0 Ur Specific [place] 1.027 Urine Protein >=500 H Urine Glucose (UA) NEGATIVE Urine Ketones NEGATIVE Urine Blood NEGATIVE Urine Nitrite NEGATIVE Urine Bilirubin NEGATIVE Urine Urobilinogen NEGATIVE Ur Leukocyte Esterase NEGATIVE Urine WBC (Auto) 2 Urine RBC (Auto) 3 U Hyaline Cast (Auto) Urine Bacteria (Auto) Squamous Epi Cells Auto 1 Urine Mucus (Auto) RARE Urine Ascorbic Acid NEGATIVE 03/12/20 03/12/20 03/12/20 08:08 11:46 17:09 WBC RBC Hgb Hct MCV MCH MCHC RDW Plt Count Lymph % (Auto) [place] % (Auto) Eos % (Auto) Baso % (Auto) Absolute Neuts (auto) Absolute Lymphs (auto) Absolute Monos (auto) Absolute Eos (auto) Absolute Basos (auto) Seg Neutrophils % PT INR APTT Carbonic Acid HCO3/H2CO3 Ratio ABG pH ABG pCO2 ABG pO2 ABG HCO3 ABG Total CO2 ABG O2 Saturation ABG Base Excess FiO2 Sodium Potassium Chloride Carbon Dioxide Anion Gap BUN Creatinine Est GFR ( Amer) Est GFR (MDRD) Non-Af Glucose POC Glucose 122 H 159 H 100 Hemoglobin A1c % Calcium Total Bilirubin Direct Bilirubin Neonat Total Bilirubin Neonat Direct Bilirubin Neonat Indirect Bili AST ALT Alkaline Phosphatase Creatine Kinase CK-MB (CK-2) Troponin I NT-Pro-B Natriuret Pep Total Protein Albumin Lipase Urine Color Urine Appearance Urine pH Ur Specific [place] Urine Protein Urine Glucose (UA) Urine Ketones Urine Blood Urine Nitrite Urine Bilirubin Urine Urobilinogen Ur Leukocyte Esterase Urine WBC (Auto) Urine RBC (Auto) U Hyaline Cast (Auto) Urine Bacteria (Auto) Squamous Epi Cells Auto Urine Mucus (Auto) Urine Ascorbic Acid 03/12/20 03/12/20 03/12/20 19:58 20:45 22:23 WBC 6.0 RBC 4.99 Hgb 15.3 Hct 47.8 MCV 96 MCH 30.6 MCHC 31.9 L RDW 17.1 H Plt Count 231 Lymph % (Auto) [place] % (Auto) Eos % (Auto) Baso % (Auto) Absolute Neuts (auto) Absolute Lymphs (auto) Absolute Monos (auto) Absolute Eos (auto) Absolute Basos (auto) Seg Neutrophils % PT INR APTT Carbonic Acid HCO3/H2CO3 Ratio ABG pH ABG pCO2 ABG pO2 ABG HCO3 ABG Total CO2 ABG O2 Saturation ABG Base Excess FiO2 Sodium Potassium Chloride Carbon Dioxide Anion Gap BUN Creatinine Est GFR ( Amer) Est GFR (MDRD) Non-Af Glucose POC Glucose 95 Hemoglobin A1c % Calcium Total Bilirubin Direct Bilirubin Neonat Total Bilirubin Neonat Direct Bilirubin Neonat Indirect Bili AST ALT Alkaline Phosphatase Creatine Kinase CK-MB (CK-2) Troponin I NT-Pro-B Natriuret Pep Total Protein Albumin Lipase Urine Color YELLOW Urine Appearance SLIGHTLY-CLOUDY Urine pH 5.0 Ur Specific [place] 1.027 Urine Protein >=500 H Urine Glucose (UA) NEGATIVE Urine Ketones NEGATIVE Urine Blood NEGATIVE Urine Nitrite NEGATIVE Urine Bilirubin NEGATIVE Urine Urobilinogen 4.0 H Ur Leukocyte Esterase NEGATIVE Urine WBC (Auto) 2 Urine RBC (Auto) 0 U Hyaline Cast (Auto) Urine Bacteria (Auto) TRACE Squamous Epi Cells Auto Urine Mucus (Auto) RARE Urine Ascorbic Acid NEGATIVE 03/13/20 03/13/20 03/13/20 05:41 05:41 05:41 WBC 6.4 RBC 4.61 Hgb 14.4 Hct 44.3 MCV 96 MCH 31.2 MCHC 32.5 RDW 17.1 H Plt Count 223 Lymph % (Auto) [place] % (Auto) Eos % (Auto) Baso % (Auto) Absolute Neuts (auto) Absolute Lymphs (auto) Absolute Monos (auto) Absolute Eos (auto) Absolute Basos (auto) Seg Neutrophils % PT 15.8 H INR 1.24 APTT Carbonic Acid HCO3/H2CO3 Ratio ABG pH ABG pCO2 ABG pO2 ABG HCO3 ABG Total CO2 ABG O2 Saturation ABG Base Excess FiO2 Sodium 139.4 Potassium 3.8 Chloride 98 Carbon Dioxide 35 H Anion Gap 6 BUN 35 H Creatinine 1.46 H Est GFR ( Amer) > 60 Est GFR (MDRD) Non-Af 50 L Glucose 111 H POC Glucose Hemoglobin A1c % Calcium 8.5 Total Bilirubin Direct Bilirubin Neonat Total Bilirubin Neonat Direct Bilirubin Neonat Indirect Bili AST ALT Alkaline Phosphatase Creatine Kinase CK-MB (CK-2) Troponin I NT-Pro-B Natriuret Pep Total Protein Albumin Lipase Urine Color Urine Appearance Urine pH Ur Specific [place] Urine Protein Urine Glucose (UA) Urine Ketones Urine Blood Urine Nitrite Urine Bilirubin Urine Urobilinogen Ur Leukocyte Esterase Urine WBC (Auto) Urine RBC (Auto) U Hyaline Cast (Auto) Urine Bacteria (Auto) Squamous Epi Cells Auto Urine Mucus (Auto) Urine Ascorbic Acid 03/13/20 03/13/20 03/13/20 08:12 11:22 15:08 WBC RBC Hgb Hct MCV MCH MCHC RDW Plt Count Lymph % (Auto) [place] % (Auto) Eos % (Auto) Baso % (Auto) Absolute Neuts (auto) Absolute Lymphs (auto) Absolute Monos (auto) Absolute Eos (auto) Absolute Basos (auto) Seg Neutrophils % PT INR APTT Carbonic Acid HCO3/H2CO3 Ratio ABG pH ABG pCO2 ABG pO2 ABG HCO3 ABG Total CO2 ABG O2 Saturation ABG Base Excess FiO2 Sodium Potassium Chloride Carbon Dioxide Anion Gap BUN Creatinine Est GFR ( Amer) Est GFR (MDRD) Non-Af Glucose POC Glucose 121 H 121 H 107 Hemoglobin A1c % Calcium Total Bilirubin Direct Bilirubin Neonat Total Bilirubin Neonat Direct Bilirubin Neonat Indirect Bili AST ALT Alkaline Phosphatase Creatine Kinase CK-MB (CK-2) Troponin I NT-Pro-B Natriuret Pep Total Protein Albumin Lipase Urine Color Urine Appearance Urine pH Ur Specific [place] Urine Protein Urine Glucose (UA) Urine Ketones Urine Blood Urine Nitrite Urine Bilirubin Urine Urobilinogen Ur Leukocyte Esterase Urine WBC (Auto) Urine RBC (Auto) U Hyaline Cast (Auto) Urine Bacteria (Auto) Squamous Epi Cells Auto Urine Mucus (Auto) Urine Ascorbic Acid 03/13/20 03/14/20 03/14/20 21:54 07:05 07:05 WBC RBC Hgb Hct MCV MCH MCHC RDW Plt Count Lymph % (Auto) [place] % (Auto) Eos % (Auto) Baso % (Auto) Absolute Neuts (auto) Absolute Lymphs (auto) Absolute Monos (auto) Absolute Eos (auto) Absolute Basos (auto) Seg Neutrophils % PT 15.2 INR 1.17 APTT Carbonic Acid HCO3/H2CO3 Ratio ABG pH ABG pCO2 ABG pO2 ABG HCO3 ABG Total CO2 ABG O2 Saturation ABG Base Excess FiO2 Sodium 139.0 Potassium 4.3 Chloride 96 L Carbon Dioxide 38 H Anion Gap 5 BUN 35 H Creatinine 1.58 H Est GFR ( Amer) 55 L Est GFR (MDRD) Non-Af 45 L Glucose 120 H POC Glucose 139 H Hemoglobin A1c % Calcium 8.7 Total Bilirubin Direct Bilirubin Neonat Total Bilirubin Neonat Direct Bilirubin Neonat Indirect Bili AST ALT Alkaline Phosphatase Creatine Kinase CK-MB (CK-2) Troponin I NT-Pro-B Natriuret Pep Total Protein Albumin Lipase Urine Color Urine Appearance Urine pH Ur Specific [place] Urine Protein Urine Glucose (UA) Urine Ketones Urine Blood Urine Nitrite Urine Bilirubin Urine Urobilinogen Ur Leukocyte Esterase Urine WBC (Auto) Urine RBC (Auto) U Hyaline Cast (Auto) Urine Bacteria (Auto) Squamous Epi Cells Auto Urine Mucus (Auto) Urine Ascorbic Acid 03/14/20 03/14/20 03/14/20 07:56 12:06 16:08 WBC RBC Hgb Hct MCV MCH MCHC RDW Plt Count Lymph % (Auto) [place] % (Auto) Eos % (Auto) Baso % (Auto) Absolute Neuts (auto) Absolute Lymphs (auto) Absolute Monos (auto) Absolute Eos (auto) Absolute Basos (auto) Seg Neutrophils % PT INR APTT Carbonic Acid HCO3/H2CO3 Ratio ABG pH ABG pCO2 ABG pO2 ABG HCO3 ABG Total CO2 ABG O2 Saturation ABG Base Excess FiO2 Sodium Potassium Chloride Carbon Dioxide Anion Gap BUN Creatinine Est GFR ( Amer) Est GFR (MDRD) Non-Af Glucose POC Glucose 150 H 146 H 102 Hemoglobin A1c % Calcium Total Bilirubin Direct Bilirubin Neonat Total Bilirubin Neonat Direct Bilirubin Neonat Indirect Bili AST ALT Alkaline Phosphatase Creatine Kinase CK-MB (CK-2) Troponin I NT-Pro-B Natriuret Pep Total Protein Albumin Lipase Urine Color Urine Appearance Urine pH Ur Specific [place] Urine Protein Urine Glucose (UA) Urine Ketones Urine Blood Urine Nitrite Urine Bilirubin Urine Urobilinogen Ur Leukocyte Esterase Urine WBC (Auto) Urine RBC (Auto) U Hyaline Cast (Auto) Urine Bacteria (Auto) Squamous Epi Cells Auto Urine Mucus (Auto) Urine Ascorbic Acid 03/14/20 03/15/20 03/15/20 21:10 05:23 05:23 WBC 6.1 RBC 4.59 Hgb 14.2 Hct 44.0 MCV 96 MCH 31.0 MCHC 32.4 RDW 17.1 H Plt Count 211 Lymph % (Auto) [place] % (Auto) Eos % (Auto) Baso % (Auto) Absolute Neuts (auto) Absolute Lymphs (auto) Absolute Monos (auto) Absolute Eos (auto) Absolute Basos (auto) Seg Neutrophils % PT INR APTT Carbonic Acid HCO3/H2CO3 Ratio ABG pH ABG pCO2 ABG pO2 ABG HCO3 ABG Total CO2 ABG O2 Saturation ABG Base Excess FiO2 Sodium 137.6 Potassium 4.0 Chloride 96 L Carbon Dioxide 38 H Anion Gap 4 L BUN 38 H Creatinine 1.53 H Est GFR ( Amer) 57 L Est GFR (MDRD) Non-Af 47 L Glucose 81 POC Glucose 113 H Hemoglobin A1c % Calcium 8.5 Total Bilirubin Direct Bilirubin Neonat Total Bilirubin Neonat Direct Bilirubin Neonat Indirect Bili AST ALT Alkaline Phosphatase Creatine Kinase CK-MB (CK-2) Troponin I NT-Pro-B Natriuret Pep Total Protein Albumin Lipase Urine Color Urine Appearance Urine pH Ur Specific [place] Urine Protein Urine Glucose (UA) Urine Ketones Urine Blood Urine Nitrite Urine Bilirubin Urine Urobilinogen Ur Leukocyte Esterase Urine WBC (Auto) Urine RBC (Auto) U Hyaline Cast (Auto) Urine Bacteria (Auto) Squamous Epi Cells Auto Urine Mucus (Auto) Urine Ascorbic Acid 03/15/20 03/15/20 03/15/20 05:23 07:41 11:47 WBC RBC Hgb Hct MCV MCH MCHC RDW Plt Count Lymph % (Auto) [place] % (Auto) Eos % (Auto) Baso % (Auto) Absolute Neuts (auto) Absolute Lymphs (auto) Absolute Monos (auto) Absolute Eos (auto) Absolute Basos (auto) Seg Neutrophils % PT 15.2 INR 1.18 APTT 40.6 H Carbonic Acid HCO3/H2CO3 Ratio ABG pH ABG pCO2 ABG pO2 ABG HCO3 ABG Total CO2 ABG O2 Saturation ABG Base Excess FiO2 Sodium Potassium Chloride Carbon Dioxide Anion Gap BUN Creatinine Est GFR ( Amer) Est GFR (MDRD) Non-Af Glucose POC Glucose 118 H 125 H Hemoglobin A1c % Calcium Total Bilirubin Direct Bilirubin Neonat Total Bilirubin Neonat Direct Bilirubin Neonat Indirect Bili AST ALT Alkaline Phosphatase Creatine Kinase CK-MB (CK-2) Troponin I NT-Pro-B Natriuret Pep Total Protein Albumin Lipase Urine Color Urine Appearance Urine pH Ur Specific [place] Urine Protein Urine Glucose (UA) Urine Ketones Urine Blood Urine Nitrite Urine Bilirubin Urine Urobilinogen Ur Leukocyte Esterase Urine WBC (Auto) Urine RBC (Auto) U Hyaline Cast (Auto) Urine Bacteria (Auto) Squamous Epi Cells Auto Urine Mucus (Auto) Urine Ascorbic Acid 03/15/20 03/15/20 03/15/20 17:07 19:21 21:14 WBC 5.9 RBC 4.56 Hgb 14.2 Hct 43.8 MCV 96 MCH 31.2 MCHC 32.5 RDW 17.5 H Plt Count 206 Lymph % (Auto) [place] % (Auto) Eos % (Auto) Baso % (Auto) Absolute Neuts (auto) Absolute Lymphs (auto) Absolute Monos (auto) Absolute Eos (auto) Absolute Basos (auto) Seg Neutrophils % PT INR APTT Carbonic Acid HCO3/H2CO3 Ratio ABG pH ABG pCO2 ABG pO2 ABG HCO3 ABG Total CO2 ABG O2 Saturation ABG Base Excess FiO2 Sodium Potassium Chloride Carbon Dioxide Anion Gap BUN Creatinine Est GFR ( Amer) Est GFR (MDRD) Non-Af Glucose POC Glucose 159 H 131 H Hemoglobin A1c % Calcium Total Bilirubin Direct Bilirubin Neonat Total Bilirubin Neonat Direct Bilirubin Neonat Indirect Bili AST ALT Alkaline Phosphatase Creatine Kinase CK-MB (CK-2) Troponin I NT-Pro-B Natriuret Pep Total Protein Albumin Lipase Urine Color Urine Appearance Urine pH Ur Specific [place] Urine Protein Urine Glucose (UA) Urine Ketones Urine Blood Urine Nitrite Urine Bilirubin Urine Urobilinogen Ur Leukocyte Esterase Urine WBC (Auto) Urine RBC (Auto) U Hyaline Cast (Auto) Urine Bacteria (Auto) Squamous Epi Cells Auto Urine Mucus (Auto) Urine Ascorbic Acid 03/15/20 03/16/20 03/16/20 22:24 05:35 05:35 WBC 6.4 RBC 4.50 Hgb 13.9 Hct 43.0 MCV 96 MCH 30.9 MCHC 32.3 RDW 17.2 H Plt Count 172 Lymph % (Auto) [place] % (Auto) Eos % (Auto) Baso % (Auto) Absolute Neuts (auto) Absolute Lymphs (auto) Absolute Monos (auto) Absolute Eos (auto) Absolute Basos (auto) Seg Neutrophils % PT 16.7 H INR 1.34 APTT Carbonic Acid HCO3/H2CO3 Ratio ABG pH ABG pCO2 ABG pO2 ABG HCO3 ABG Total CO2 ABG O2 Saturation ABG Base Excess FiO2 Sodium Potassium Chloride Carbon Dioxide Anion Gap BUN Creatinine Est GFR ( Amer) Est GFR (MDRD) Non-Af Glucose POC Glucose Hemoglobin A1c % Calcium Total Bilirubin Direct Bilirubin Neonat Total Bilirubin Neonat Direct Bilirubin Neonat Indirect Bili AST ALT Alkaline Phosphatase Creatine Kinase CK-MB (CK-2) Troponin I NT-Pro-B Natriuret Pep Total Protein Albumin Lipase Urine Color YELLOW Urine Appearance CLEAR Urine pH 8.0 Ur Specific [place] 1.014 Urine Protein >=500 H Urine Glucose (UA) NEGATIVE Urine Ketones NEGATIVE Urine Blood NEGATIVE Urine Nitrite NEGATIVE Urine Bilirubin NEGATIVE Urine Urobilinogen 2.0 H Ur Leukocyte Esterase NEGATIVE Urine WBC (Auto) 1 Urine RBC (Auto) U Hyaline Cast (Auto) 1 Urine Bacteria (Auto) Squamous Epi Cells Auto 2 Urine Mucus (Auto) RARE Urine Ascorbic Acid NEGATIVE 03/16/20 03/16/20 03/16/20 05:35 05:35 07:47 WBC RBC Hgb Hct MCV MCH MCHC RDW Plt Count Lymph % (Auto) [place] % (Auto) Eos % (Auto) Baso % (Auto) Absolute Neuts (auto) Absolute Lymphs (auto) Absolute Monos (auto) Absolute Eos (auto) Absolute Basos (auto) Seg Neutrophils % PT INR APTT Carbonic Acid HCO3/H2CO3 Ratio ABG pH ABG pCO2 ABG pO2 ABG HCO3 ABG Total CO2 ABG O2 Saturation ABG Base Excess FiO2 Sodium 137.4 Potassium 4.3 Chloride 96 L Carbon Dioxide 32 H Anion Gap 9 BUN 36 H Creatinine 1.44 H Est GFR ( Amer) > 60 Est GFR (MDRD) Non-Af 51 L Glucose 128 H POC Glucose 139 H Hemoglobin A1c % Calcium 8.7 Total Bilirubin Direct Bilirubin Neonat Total Bilirubin Neonat Direct Bilirubin Neonat Indirect Bili AST ALT Alkaline Phosphatase Creatine Kinase CK-MB (CK-2) Troponin I NT-Pro-B Natriuret Pep 77953 H Total Protein Albumin Lipase Urine Color Urine Appearance Urine pH Ur Specific [place] Urine Protein Urine Glucose (UA) Urine Ketones Urine Blood Urine Nitrite Urine Bilirubin Urine Urobilinogen Ur Leukocyte Esterase Urine WBC (Auto) Urine RBC (Auto) U Hyaline Cast (Auto) Urine Bacteria (Auto) Squamous Epi Cells Auto Urine Mucus (Auto) Urine Ascorbic Acid 03/16/20 03/16/20 03/16/20 11:26 15:22 21:43 WBC RBC Hgb Hct MCV MCH MCHC RDW Plt Count Lymph % (Auto) [place] % (Auto) Eos % (Auto) Baso % (Auto) Absolute Neuts (auto) Absolute Lymphs (auto) Absolute Monos (auto) Absolute Eos (auto) Absolute Basos (auto) Seg Neutrophils % PT INR APTT Carbonic Acid HCO3/H2CO3 Ratio ABG pH ABG pCO2 ABG pO2 ABG HCO3 ABG Total CO2 ABG O2 Saturation ABG Base Excess FiO2 Sodium Potassium Chloride Carbon Dioxide Anion Gap BUN Creatinine Est GFR ( Amer) Est GFR (MDRD) Non-Af Glucose POC Glucose 135 H 240 H 150 H Hemoglobin A1c % Calcium Total Bilirubin Direct Bilirubin Neonat Total Bilirubin Neonat Direct Bilirubin Neonat Indirect Bili AST ALT Alkaline Phosphatase Creatine Kinase CK-MB (CK-2) Troponin I NT-Pro-B Natriuret Pep Total Protein Albumin Lipase Urine Color Urine Appearance Urine pH Ur Specific [place] Urine Protein Urine Glucose (UA) Urine Ketones Urine Blood Urine Nitrite Urine Bilirubin Urine Urobilinogen Ur Leukocyte Esterase Urine WBC (Auto) Urine RBC (Auto) U Hyaline Cast (Auto) Urine Bacteria (Auto) Squamous Epi Cells Auto Urine Mucus (Auto) Urine Ascorbic Acid 03/17/20 03/17/20 03/17/20 04:42 06:45 08:50 WBC RBC Hgb Hct MCV MCH MCHC RDW Plt Count Lymph % (Auto) [place] % (Auto) Eos % (Auto) Baso % (Auto) Absolute Neuts (auto) Absolute Lymphs (auto) Absolute Monos (auto) Absolute Eos (auto) Absolute Basos (auto) Seg Neutrophils % PT 16.6 H INR 1.32 APTT Carbonic Acid HCO3/H2CO3 Ratio ABG pH ABG pCO2 ABG pO2 ABG HCO3 ABG Total CO2 ABG O2 Saturation ABG Base Excess FiO2 Sodium Potassium Chloride Carbon Dioxide Anion Gap BUN Creatinine Est GFR ( Amer) Est GFR (MDRD) Non-Af Glucose POC Glucose 167 H Hemoglobin A1c % Calcium Total Bilirubin Direct Bilirubin Neonat Total Bilirubin Neonat Direct Bilirubin Neonat Indirect Bili AST ALT Alkaline Phosphatase Creatine Kinase CK-MB (CK-2) Troponin I NT-Pro-B Natriuret Pep Total Protein Albumin Lipase Urine Color YELLOW Urine Appearance CLEAR Urine pH 7.0 Ur Specific [place] 1.012 Urine Protein 100 H Urine Glucose (UA) NEGATIVE Urine Ketones NEGATIVE Urine Blood NEGATIVE Urine Nitrite POSITIVE H Urine Bilirubin NEGATIVE Urine Urobilinogen NEGATIVE Ur Leukocyte Esterase NEGATIVE Urine WBC (Auto) 0 Urine RBC (Auto) 0 U Hyaline Cast (Auto) Urine Bacteria (Auto) Squamous Epi Cells Auto 1 Urine Mucus (Auto) RARE Urine Ascorbic Acid NEGATIVE 03/17/20 11:35 WBC RBC Hgb Hct MCV MCH MCHC RDW Plt Count Lymph % (Auto) [place] % (Auto) Eos % (Auto) Baso % (Auto) Absolute Neuts (auto) Absolute Lymphs (auto) Absolute Monos (auto) Absolute Eos (auto) Absolute Basos (auto) Seg Neutrophils % PT INR APTT Carbonic Acid HCO3/H2CO3 Ratio ABG pH ABG pCO2 ABG pO2 ABG HCO3 ABG Total CO2 ABG O2 Saturation ABG Base Excess FiO2 Sodium Potassium Chloride Carbon Dioxide Anion Gap BUN Creatinine Est GFR ( Amer) Est GFR (MDRD) Non-Af Glucose POC Glucose 175 H Hemoglobin A1c % Calcium Total Bilirubin Direct Bilirubin Neonat Total Bilirubin Neonat Direct Bilirubin Neonat Indirect Bili AST ALT Alkaline Phosphatase Creatine Kinase CK-MB (CK-2) Troponin I NT-Pro-B Natriuret Pep Total Protein Albumin Lipase Urine Color Urine Appearance Urine pH Ur Specific [place] Urine Protein Urine Glucose (UA) Urine Ketones Urine Blood Urine Nitrite Urine Bilirubin Urine Urobilinogen Ur Leukocyte Esterase Urine WBC (Auto) Urine RBC (Auto) U Hyaline Cast (Auto) Urine Bacteria (Auto) Squamous Epi Cells Auto Urine Mucus (Auto) Urine Ascorbic Acid Chest X-Ray 03/11/20 14:30 IMPRESSION: Left lower lobe pneumonia. Scrotum Ultrasound 03/11/20 14:31 IMPRESSION: 1, NO EVIDENCE OF TESTICULAR MASS OR TORSION. 2. Scrotal wall thickening bilaterally, greater on the left. 3. Small subcentimeter cysts in the head of the epididymis bilaterally. Chest/Abdomen CTA 03/11/20 18:05 IMPRESSION: 1. Findings suspicious for acute pulmonary emboli within segmental and subsegmental pulmonary arteries supplying the left lower lobe. Some peripheral wedge-shaped opacities in this region likely represent pulmonary infarcts. There may be component of rounded atelectasis. 2. Findings suggestive of pulmonary edema with ground-glass attenuation and septal thickening is well as bilateral pleural effusions. 3. Main pulmonary is enlarged. Reflex of contrast into the IVC and hepatic veins. Findings could be due to underlying chronic pulmonary hypertension, though this could be exacerbated due to the acute PE. IMPRESSION/RECOMMENDATION: 1. Acute on chronic systolic heart failure: Continue current medications, but will increase the patient's losartan.. The patient states his symptoms are improving. We will add an ARB. We will continue the patient's Coreg and hydralazine. Hydralazine will help as pulmonary hypertension as also would start. 2. Acute pulmonary emboli: Continue Lovenox, and warfarin. The patient's INR is subtherapeutic. Patient refusing Lovenox. We will give him samples of Pradaxa to take. 3. Severe pulmonary hypertension: This is a combination of left heart failure and the patient's COPD. Hydralazine should help. Continue the patient's losartan to 50 mg p.o. every 12 hours. 4. COPD: Patient continues to smoke. There is no evidence of acute exacerbation of COPD. 5. Dilated cardiomyopathy with LV ejection fraction less than 10%. Continue beta-maggie and ARB and hydralazine. Continue IV Lasix for now. 6. Coronary artery disease history of myocardial infarction the patient denies any anginal symptoms. 7. Hypertension: Blood pressure is stable. 8. Diabetes mellitus. 9. RENAL insufficiency. Expect this to improve with treatment. Avoid nephrotoxic drugs. The patient's GFR is slightly improved at 51. Medications reviewed. Medical regimen management plan discussed with attending provider on the case. Medical decision making is of high complexity. 60 minutes spent as patient more than 50% time spent in direct patient care. Medical regimen and management plan discussed with the attending provider on the case. Patient being discharged at the patient's insistence. He is aware of the risks of prematurely leaving the hospital. We will sign off. The patient has been given Pradaxa 150 mg to take twice a day as a whole capsule, there being 30 days supply of the sample..
[2020-03-17] MEDS ORDERED: WARFARIN SODIUM 5 MG TABLET PO SCH (22:00)
== END 2020-03-17 17:45 | disposition home or self-care (01) | DRG 280 ==
LOC: ER 13:47 → EH 21:30 → 5 23:06
PROVIDERS: ADMIT Student in an Organized Health Care Education/Training Program; ATTEND Physician Assistant
PROC: B24BZZZ Ultrasonography of Heart with Aorta (ICD-10-PCS; principal; 2020-03-12)
DX: I11.0 Hypertensive heart disease with heart failure (principal); I26.99 Other pulmonary embolism without acute cor pulmonale; I21.A1 Myocardial infarction type 2; N17.9 Acute kidney failure, unspecified; E87.3 Alkalosis; I50.23 Acute on chronic systolic (congestive) heart failure; I42.0 Dilated cardiomyopathy; I25.10 Atherosclerotic heart disease of native coronary artery without angina pectoris; J44.9 Chronic obstructive pulmonary disease, unspecified; E66.9 Obesity, unspecified; E11.9 Type 2 diabetes mellitus without complications; I87.2 Venous insufficiency (chronic) (peripheral); I27.20 Pulmonary hypertension, unspecified; R04.0 Epistaxis; F17.200 Nicotine dependence, unspecified, uncomplicated; I25.2 Old myocardial infarction; Z79.01 Long term (current) use of anticoagulants; Z79.899 Other long term (current) drug therapy; Z71.6 Tobacco abuse counseling; Z95.5 Presence of coronary angioplasty implant and graft; Z95.1 Presence of aortocoronary bypass graft; Z95.810 Presence of automatic (implantable) cardiac defibrillator; N50.89 Other specified disorders of the male genital organs; K13.79 Other lesions of oral mucosa
CPT/HCPCS: 36415; 36600; 71045; 71275; 76870; 80048; 80053; 81001; 82550; 82553; 82803; 82962; 83036; 83690; 83880; 84484; 85025; 85027; 85610; 85730; 93005; 93010; 93306; 93976; 94640; 96372; 96374; 99285; J1650; J1815; J1940; J3490

== ENCOUNTER 2020-04-04 15:00 | Emergency (ER) | payer MEDICARE, OTHER ==
--- NOTE | 2020-04-04 16:25 | ER Document Report ---
ED Medical Screen (RME) - General Stated Complaint: SHORTNESS OF BREATH Time Seen by Provider: 04/04/20 16:12 - HPI Notes: Patient is a 59 y/o male with a hx of COPD, DM and CHF who presents with shortness of breath that worsened four days ago. His baseline is 4L O2 via nasal canula. He believe his portable O2 machine has not been working properly. He reports non productive cough but denies chest pain, fever, abdominal pain, and vomiting. Patient was seen in the emergency department on 03/11/20 and was diagnosed with PE. He was admitted and discharged a week later and was placed on Pradaxa. Patient states he is compliant with his medication. - Related Data Allergies/Adverse Reactions: No Known Allergies Allergy (Unverified 03/11/20 14:15) Past Medical History - Past Medical History Cardiac Medical History: Reports: Hx Congestive Heart Failure, Hx Heart Attack - 2014, Hx Hypercholesterolemia, Hx Hypertension Denies: Hx DVT, Hx Pulmonary Embolism Pulmonary Medical History: Reports: Hx COPD Endocrine Medical History: Reports: Hx Diabetes Mellitus Type 2 Renal/ Medical History: Denies: Hx Kidney Stones Psychiatric Medical History: Denies: Hx Depression Past Surgical History: Reports: Hx Cardiac Catheterization - 3 stents, Hx Cardiac Surgery - #V cabg, pacer/defib, Hx Coronary Artery Bypass Graft, Hx Pacemaker - And defibrillator, Hx Vascular Surgery - rt femoral aneurysm Physical Exam - Vital signs Vitals: Temp Pulse Resp BP Pulse Ox 97.8 F 80 22 H 167/117 H 99 04/04/20 15:18 04/04/20 15:18 04/04/20 15:18 04/04/20 15:18 04/04/20 15:18 - Respiratory Respiratory status: Labored Breath sounds: Normal Course - Re-evaluation Re-evalutation: I have greeted and performed a rapid initial assessment of this patient. A comprehensive ED assessment and evaluation of the patient, analysis of test results and completion of medical decision making process will be conducted by an additional ED providers. - Vital Signs Vital signs: Temp Pulse Resp BP Pulse Ox 97.8 F 80 22 H 167/117 H 100 04/04/20 15:18 04/04/20 15:18 04/04/20 15:18 04/04/20 15:18 04/04/20 16:09
[2020-04-04 17:10] LABS: ABSOLUTE BASOPHILS # (AUTO) 0.1 10^3/uL (0.0-0.2); ABSOLUTE EOSINOPHILS # (AUTO) 0.2 10^3/uL (0.0-0.6); ABSOLUTE MONOCYTES (AUTO) 0.7 10^3/uL (0.1-1.4); ABSOLUTE NEUT (AUTO) 5.4 10^3/uL (1.7-8.2); BASOPHILS % (AUTO) 1.1 % (0-2); EOSINOPHILS % (AUTO) 2.2 % (0-6); HEMATOCRIT 46.2 % (37.9-51.0); HEMOGLOBIN 15.4 g/dL (13.5-17.0); LYMPHOCYTES % (AUTO) 13.8 % (13-45); MEAN CORPUSCULAR HEMOGLOBIN 31.7 pg (27.0-33.4); MEAN CORPUSCULAR HGB CONC 33.3 g/dL (32.0-36.0); MEAN CORPUSCULAR VOLUME 95 fl (80-97); MONOCYTES % (AUTO) 9.4 % (3-13); PLATELET COUNT 314 10^3/uL (150-450); RED BLOOD COUNT 4.86 10^6/uL (4.35-5.55); SEGMENTED NEUTROPHILS % (AUTO) 73.5 % (42-78); TOTAL CELLS COUNTED % (AUTO) 100 %; WHITE BLOOD COUNT 7.4 10^3/uL (4.0-10.5)
--- NOTE | 2020-04-04 17:14 | RADIOLOGY REPORT (SQ) ---
EXAM DESCRIPTION: CHEST SINGLE VIEW IMAGES COMPLETED DATE/TIME: 04/04/2020 3:58 pm REASON FOR STUDY: shortness of breath COMPARISON: 03/11/2020 EXAM PARAMETERS: NUMBER OF VIEWS: One view. TECHNIQUE: Single frontal radiographic view of the chest acquired. RADIATION DOSE: NA LIMITATIONS: None. FINDINGS: LUNGS AND PLEURA: Worsening patchy opacities in the right lung. Loculated left effusion w ith diaphragmatic tenting and atelectasis/ consolidation at the left lung base stable. No right effu rosenda. No pneumothorax. MEDIASTINUM AND HILAR STRUCTURES: No masses. Contour normal. HEART AND VASCULAR STRUCTURES: Moderate cardiomegaly. Postoperative changes of prior CABG. Mild pul monary vascular congestion. BONES: No acute findings. HARDWARE: Left infraclavicular AICD with intact lead wires unchanged. OTHER: No other significant finding. IMPRESSION: Worsening patchy opacities in the right lung and chronic loculated left effusion with le ft basilar atelectasis/ consolidation. Findings may represent infectious/ inflammatory process such as multifocal pneumonia. There may be a component of mild pulmonary edema. TECHNICAL DOCUMENTATION: JOB ID: [id number] 2010 [employer]- All Rights Reserved Reading location - IP/workstation name: [email or web address]
[2020-04-04 17:29] LABS: ALBUMIN 3.5 g/dL (3.5-5.0); ALKALINE PHOSPHATASE 98 U/L (38-126); ASPARTATE AMINO TRANSFERASE 24 U/L (17-59); BILIRUBIN,DIRECT 0.7 mg/dL (0.0-0.4); BLOOD UREA NITROGEN 40 mg/dL (7-20); CALCIUM 8.9 mg/dL (8.4-10.2); CHLORIDE 90 mmol/L (98-107); GLUCOSE 149 mg/dL (75-110); POTASSIUM 4.1 mmol/L (3.6-5.0); TOTAL PROTEIN 6.4 g/dL (6.3-8.2)
[2020-04-04 17:35] LABS: ANION GAP 6 (5-19)
[2020-04-04 17:37] LABS: CARBON DIOXIDE 43 mmol/L (22-30)
--- NOTE | 2020-04-04 18:00 | ER Document Report ---
ED Respiratory Problem - General Chief Complaint: Shortness Of Breath Stated Complaint: SHORTNESS OF BREATH Time Seen by Provider: 04/04/20 16:12 Mode of Arrival: Medic Information source: Patient Notes: This 59-year-old man presents to the emergency department with a history of COPD, CHF, pulmonary emboli in the past. Apparently on home O2 at 4 L. His oxygen concentrator apparently is broken for the past few days he has noted that does not seem to be getting any oxygen from the machine. Today he is presenting to the emergency department with increased shortness of breath and the need for oxygen. He continues to smoke and uses an inhaler. He does not have a nebulizer. He is from [place] has been visiting with family in the area for approximately 1 month.n He has plans to go back to [place] as soon as he is able. He has had an evaluation at the hospital recently, echo revealed dilated cardiomyopathy with LV ejection fraction less than 10%. - Related Data Allergies/Adverse Reactions: No Known Allergies Allergy (Verified 04/04/20 17:16) Past Medical History - Social History Smoking Status: Former Smoker Family History: Reviewed & Not Pertinent - Past Medical History Cardiac Medical History: Reports: Hx Congestive Heart Failure, Hx Heart Attack, Hx Hypercholesterolemia, Hx Hypertension Denies: Hx DVT, Hx Pulmonary Embolism Pulmonary Medical History: Reports: Hx COPD Endocrine Medical History: Reports: Hx Diabetes Mellitus Type 2 Renal/ Medical History: Denies: Hx Kidney Stones Psychiatric Medical History: Denies: Hx Depression Past Surgical History: Reports: Hx Cardiac Catheterization, Hx Cardiac Surgery, Hx Coronary Artery Bypass Graft, Hx Pacemaker - And defibrillator, Hx Vascular Surgery Review of Systems - Review of Systems Notes: Constitutional: Negative for fever. HENT: Negative for sore throat. Eyes: Negative for visual changes. Cardiovascular: Negative for chest pain. Respiratory: See HPI Gastrointestinal: Negative for abdominal pain, vomiting or diarrhea. Genitourinary: Negative for dysuria. Musculoskeletal: Negative for back pain. Skin: Negative for rash. Neurological: Negative for headaches, weakness or numbness. 10 point ROS negative except as marked above and in HPI. Physical Exam - Vital signs Vitals: Temp Pulse Resp BP Pulse Ox 97.8 F 80 22 H 167/117 H 99 04/04/20 15:18 04/04/20 15:18 04/04/20 15:18 04/04/20 15:18 04/04/20 15:18 - Notes Notes: PHYSICAL EXAMINATION: Physical Exam: General: Chronically ill appearing 59-year-old man in no acute distress HEENT: NC/AT, pupils equal round and reactive to light, MM moist,nares clear, oropharynx clear, airway patent Neck: supple, no adenopathy, no masses. Good range of motion Lungs: Bibasilar rales CVS: Regular rate and rhythm no murmur gallop or rub Abdomen: Soft, active, nontender, no masses, no hepatosplenomegaly Ext: 1+ edema, chronic dermatitis Neuro: Alert and responsive, moving all 4 extremities on command, cranial nerves intact, no focal findings Skin: Intact no open lesions, no rash Course - Re-evaluation Re-evalutation: 04/05/20 01:23 The patient presented to the emergency department because his oxygen concentrator had stopped working. He does not have oxygen at home. "I came to the emergency department because he was out of oxygen." The company was contacted and will hopefully be able to set up oxygen in his home later today (04/05/2020.) His home medicine list has been reviewed and I am writing that he get those medications tonight.. I am also giving IV dose of Lasix. I had a discussion with the patient's son who notes that his father has had an increased weight gain and he is concerned that he was told that he had a 10% functioning heart. And he is frustrated that he cannot get his father back to [place], apparently he drove himself here from [place]. I have explained to his son that his father would have to take responsibility to decrease his smoking, to take his medications as prescribed, and to comply with the oxygen use. Beyond that compliance we would not be able to course him of his illness. 04/05/20 01:38 This patient is a social hold and hospital social worker delinquency prevention may be able to get involved to expedite a solution to the problem with no oxygen at home. - Vital Signs Vital signs: Temp Pulse Resp BP Pulse Ox 98.4 F 80 15 162/93 H 98 04/04/20 20:34 04/04/20 15:18 04/05/20 01:01 04/05/20 01:01 04/05/20 01:01 - Laboratory Results Result Diagrams: 04/04/20 16:35 04/04/20 16:35 Laboratory Results Interpreted: 04/04/20 04/04/20 04/04/20 16:35 16:35 16:35 RDW 17.0 H Carbonic Acid ABG pCO2 ABG pO2 ABG HCO3 ABG Total CO2 ABG O2 Saturation Chloride 90 L Carbon Dioxide 43 H* BUN 40 H Creatinine 1.90 H Est GFR ( Amer) 44 L Est GFR (MDRD) Non-Af 37 L Glucose 149 H Total Bilirubin 3.0 H Direct Bilirubin 0.7 H NT-Pro-B Natriuret Pep 23589 H 04/04/20 20:18 RDW Carbonic Acid 1.93 H ABG pCO2 64.1 H ABG pO2 31.3 L* ABG HCO3 37.4 H ABG Total CO2 39.4 H ABG O2 Saturation 57.0 L Chloride Carbon Dioxide BUN Creatinine Est GFR ( Amer) Est GFR (MDRD) Non-Af Glucose Total Bilirubin Direct Bilirubin NT-Pro-B Natriuret Pep Critical Laboratory Results Reviewed: No Critical Results - Radiology Results Radiology Results Interpreted: 04/05/20 01:32 Chest X-Ray 04/04/20 16:18 IMPRESSION: Worsening patchy opacities in the right lung and chronic loculated left effusion with left basilar atelectasis/ consolidation. Findings may represent infectious/ inflammatory process such as multifocal pneumonia. There may be a component of mild pulmonary edema. Critical Radiology Results Reviewed: No Critical Results Discharge - Discharge Clinical Impression: On home oxygen therapy, Tobacco dependence, Obesity (BMI 30-39.9) Respiratory failure, chronic Qualifiers: Respiratory failure complication: hypoxia Qualified Code(s): J96.11 - Chronic respiratory failure with hypoxia Congestive heart failure Qualifiers: Heart failure type: combined systolic and diastolic Heart failure chronicity: chronic Qualified Code(s): I50.42 - Chronic combined systolic (congestive) and diastolic (congestive) heart failure Condition: Good Disposition: HOME, SELF-CARE
[2020-04-04 20:39] LABS: ARTERIAL BLOOD BASE EXCESS 9.3 mmol/L; ARTERIAL BLOOD H2CO3 1.93 mmol/L (1.05-1.35); ARTERIAL BLOOD HCO3 37.4 mmol/L (20-24); ARTERIAL BLOOD PCO2 64.1 mmHg (35-45); ARTERIAL BLOOD PH 7.38 (7.35-7.45); ARTERIAL BLOOD TOTAL CO2 39.4 mmol/L (23-27)
[2020-04-04 20:41] LABS: ARTERIAL BLOOD FIO2 4L
[2020-04-04 20:42] LABS: ARTERIAL BLOOD PO2 31.3 mmHg (80-100)
[2020-04-05] MEDS ORDERED: FUROSEMIDE INJ/PF 20 MG/2 ML SDV IV ONE (01:34)
[2020-04-05] MEDS ORDERED: HYDRALAZINE HCL 25 MG TABLET PO ONE (01:34)
[2020-04-05] MEDS ORDERED: ISOSORBIDE DINITRATE 20 MG TABLET PO ONE (01:35)
[2020-04-05] MEDS ORDERED: CARVEDILOL 12.5 MG TABLET PO ONE (01:36)
[2020-04-05] MEDS ORDERED: LOSARTAN POTASSIUM 50 MG TABLET PO ONE (01:37)
[2020-04-05] MEDS ORDERED: ISOSORBIDE DINITRATE 20 MG TABLET ONE (02:55)
[2020-04-05] MEDS ORDERED: ISOSORBIDE DINITRATE 10 MG TABLET ONE (02:55)
[2020-04-05] MEDS ORDERED: FUROSEMIDE 20 MG TABLET PO ONE (03:05)
[2020-04-05 03:57] LABS: INTERNATIONAL RATION (INR) 3.03; PROTHROMBIN TIME 31.2 SEC (11.4-15.4)
[2020-04-05 03:58] LABS: PARTIAL THROMBOPLASTIN TIME 50.1 SEC (23.5-35.8)
--- NOTE | 2020-04-05 16:30 | ER Document Report ---
Doctor's Note Notes: 04/05/20 16:29 I the examined the patient just now. Patient is ambulating about the room without problem. He states he is ready to go home. His oxygen has arrived and is in the room. Patient has unhooked himself from all of the monitor. Patient is ambulated by himself to the restroom and back without problem. Patient is not significantly tachypneic. He appears in no distress. Skin is warm and dry. He is pleasant and talkative. He will be discharged home.
[2020-04-05 17:08] VITALS: BP 147/85
== END 2020-04-05 17:07 | disposition home or self-care (01) ==
LOC: ER 15:00
DX: E66.9 Obesity, unspecified (principal); I50.42 Chronic combined systolic (congestive) and diastolic (congestive) heart failure; J96.11 Chronic respiratory failure with hypoxia; J44.9 Chronic obstructive pulmonary disease, unspecified; Z99.81 Dependence on supplemental oxygen; Z95.810 Presence of automatic (implantable) cardiac defibrillator; I25.2 Old myocardial infarction
CPT/HCPCS: 99284; 36415; 82803; 85025; 85610; 85730; 0202U ×23; 80053; 83880; 71045; A9270 ×6; J3490